=== PATIENT | male | born 1945 ===

== ENCOUNTER → 2020-08-05 13:18 | Outpatient (BNVA) | payer MEDICARE, MEDICAID, OTHER, SELFPAY | PROVIDERS: Visit Provider Internal Medicine Cardiovascular Disease | DX: I49.3 Ventricular premature depolarization (principal) | CPT/HCPCS: 99212 ==

== ENCOUNTER → 2021-02-10 08:33 | Outpatient (BNVA) | payer MEDICARE, MEDICAID, SELFPAY | PROVIDERS: Visit Provider Internal Medicine Cardiovascular Disease | DX: I49.3 Ventricular premature depolarization (principal) | CPT/HCPCS: 93005; 99212 ==

== ENCOUNTER → 2021-03-19 07:48 | Outpatient (REF) | payer MEDICARE, MEDICAID, SELFPAY ==
--- NOTE | 2021-03-19 07:54 | CA_ITS ---
Transthoracic Echocardiogram Patient (Last, First, Middle): Kt Mendiola, Gender: Male Date of : 1945 Age: 75 Procedure Date: 03/19/2021 Procedure Type: Transthoracic Echocardiogram Location: OP Height: 165.1 cm Weight: 80.74 kg BSA: 1.88 m2 Heart Rate: bpm BP: 120 / 80 mmHg Personnel Director: Referring MD: Christopher Choi MD Symptoms: I42.9 - Cardiomyopathy, unspecified Study Quality: Fair, on Apical views ECG Rhythm: Sinus with extra beats Conclusions: - Normal left ventricular size and systolic function. The visually estimated ejection fraction is between 55-60%. - Normal right ventricular cavity size and systolic function. - Both atria are normal in size. - There is moderate dilatation of the ascending aorta and mild dilatation of the aortic arch. Findings Left Ventricle Normal left ventricular size and systolic function. The visually estimated ejection fraction is between 55-60%. There is no evidence of regional wall motion abnormalities. Diastolic function is normal for age. There is borderline increased left ventricular wall thickness. Right Ventricle Normal right ventricular cavity size and systolic function. Atria Both atria are normal in size. Aortic Valve There is a normal trileaflet aortic valve. There is mild calcification of the aortic valve. There is no aortic valve stenosis. There is no aortic valve regurgitation. Mitral Valve Normal mitral valve structure and function. There is no mitral valve regurgitation. There is no mitral valve stenosis. Pulmonic Valve The pulmonic valve is likely normal. Tricuspid Valve Normal tricuspid valve structure and function. There is trace tricuspid valve regurgitation. Tricuspid regurgitation envelope is inadequate for calculation of right ventricular systolic pressure. Normal right atrial pressure. Great Vessels There is moderate dilatation of the ascending aorta and mild dilatation of the aortic arch. The visualized portions of the pulmonary artery and branches are normal. Venous The inferior vena cava is normal in size and collapses greater than 50% with inspiration. Pericardium/Pleural There is no evidence of pericardial effusion. Prior Study Comparison Changes noted compared to prior study dated: 04/11/2020. Moderately dilated aortic root and mildly dilated ascending aorta. Measurements 2D Linear Measurements IVSd: 1.01 0.6-0.9/0.6-1.0 cm LVIDd: 5.48 3.9-5.3/4.2-5.9 cm LVIDd Index: 2.91 2.4-3.2/2.2-3.1 cm/m2 LVIDs: 3.82 2.0-3.6 cm LVPWd: 1.09 0.7-1.1 cm Ao Root: 3.40 2.1-3.5 cm LA Diam: 3.10 2.7-3.8/3.0-4.0 cm LAIDs Index: 1.65 1.5-2.3 cm/m2 LV Mass: 281.79 67-162/88-224 g LV Mass Index: 149.89 43-95/49-115 g/m2 LVOT Diam: 2.60 3.0+(-)1.3 cm 2D Systolic Function EF 4C: 59.30 >55% EF 2C: 63.60 >55% EF BiP: 60.20 >55% Mitral Valve MV Pk E: 0.76 MV PK A: 0.74 MV Decel Time: 211.00 E/A: 1.00 E'Lateral: 7.62 E'Medial: 8.38 E/E' Med: 9.10 E/E' Lat: 10.00 PHT: 62.00 MVA PHT: 3.55 Decel [place]: 3.61 Aortic Valve AoV Pk Bobo: 1.72 AoV Mn Bobo: 1.14 AoV VTI: 0.38 AoV Pk Grad: 12.00 Aov Mn Grad: 6.00 HAYES Cont.VTI: 3.11 LVOT LVOT Pk Bobo: 0.97 LVOT Mn Bobo: 0.65 LVOT VTI: 0.23 LVOT Pk Grad: 4.00 LVOT Mn Grad: 2.00 LVOT Diam: 2.60 LVOT Area: 5.31 Diastolic Function MV Pk E: 0.76 MV Pk A: 0.74 E/A: 1.00 E'Medial: 8.38 E/E' Med: 9.10 E' Laterial: 7.62 E/E' Lat: 10.00 Right Ventricle TAPSE (mm): 30.00 TVS' Bobo: 14.00 Great Vessels Aorta Ao Root-2D: 3.40 2.0-3.7 cm Ao Asc: 4.30 2.1-3.4 cm Ao Arch: 3.60 Updated in Other Vendor System with Status of Final Christopher Choi MD electronically signed on 03/20/2021 4:38:51 PM with status of Final
== END ==
LOC: HO.CARD 07:48
PROVIDERS: Visit Provider Internal Medicine Cardiovascular Disease
DX: I42.9 Cardiomyopathy, unspecified (principal); I49.3 Ventricular premature depolarization
CPT/HCPCS: 93306

== ENCOUNTER 2021-05-30 07:47 | Outpatient (REF) | payer MEDICARE, OTHER, SELFPAY ==
[2021-05-30 08:06] LABS: MANUAL DIFF FLAG NO
[2021-05-30 09:01] LABS: Basophils Absolute Auto 0.1 X10*3/uL (0.0-0.2); Basophils Percent Auto 1.7 % (0-2); Eosinophils Absolute Auto 1.4 X10*3/uL (0.0-0.4); Eosinophils Percent Auto 19.6 % (0-4); Hematocrit 40.3 % (42-52); Hemoglobin 13.1 g/dl (14.0-18.0); Imm Gran Abs Auto 0.02 X10*3/uL (0.00-0.03); Imm Gran Pct Auto 0.3 % (0.0-0.4); Lymphocytes Absolute Auto 2.5 X10*3/uL (1.2-4.9); Lymphocytes Percent Auto 34.5 % (20-40); Mean Corpuscular HGB Conc 32.5 g/dl (31.0-36.0); Mean Corpuscular Hemoglobin 29.1 pg (27.0-33.0); Mean Corpuscular Volume 89.6 fL (80-98); Mean Platelet Volume 12.5 fL (9.4-12.4); Monocytes Absolute Auto 0.5 X10*3/uL (0.1-1.2); Monocytes Percent Auto 6.3 % (2-11); Neutrophils Absolute Auto 2.7 X10*3/uL (2.0-8.3); Neutrophils Percent Auto 37.6 % (45-73); Platelet Count 207 X10*3/uL (160-400); Red Cell Distribution Width 13.2 % (11.0-16.0); White Blood Count 7.1 X10*3/uL (4.8-10.8)
[2021-05-30 09:37] LABS: Alanine Aminotransferase 20 U/L (0-40); Albumin Level 4.1 g/dL (3.5-5.0); Alkaline Phosphatase 84 U/L (39-117); Anion Gap 12 (12-20); Aspartate Amino Transferase 18 U/L (5-37); Bilirubin Total 0.6 mg/dL (0.0-1.0); Blood Urea Nitrogen 13 mg/dL (9-16); Calcium 9.3 mg/dL (8.4-10.2); Carbon Dioxide 25 mmol/L (22-29); Chloride 106 mmol/L (96-108); Cholesterol 111 mg/dL; Estimated Glomerular Filt Rate > 60; Glucose Fasting 136 mg/dL (60-99); HDL Cholesterol 38 mg/dL; LDL Cholesterol Calculated 58 mg/dl; Potassium 4.5 mmol/L (3.3-5.1); Sodium 138 mmol/L (135-145); Total Protein 6.9 g/dL (6.5-8.0); Triglycerides 75 mg/dL
[2021-05-30 09:46] LABS: Estimated Average Glucose 157 mg/dL; Hemoglobin A1c % 7.1 %
[2021-05-30 10:27] LABS: Creatinine Urine 150.09 mg/dL; Microalbum/Creatinine Ratio Ur 17.3 ug/mg cr
== END 2021-05-30 07:48 | disposition home or self-care (01) ==
LOC: HO.LAB 07:47
PROVIDERS: Absent Provider Internal Medicine Nephrology; PCP Nurse Practitioner Family; Visit Provider Nurse Practitioner Family
DX: I12.9 Hypertensive chronic kidney disease with stage 1 through stage 4 chronic kidney disease, or unspecified chronic kidney disease (principal); N18.31 Chronic kidney disease, stage 3a; E11.22 Type 2 diabetes mellitus with diabetic chronic kidney disease; E11.21 Type 2 diabetes mellitus with diabetic nephropathy; E55.9 Vitamin D deficiency, unspecified; E78.2 Mixed hyperlipidemia
CPT/HCPCS: 36415; 80053; 80061; 82043; 83036; 85025

== ENCOUNTER → 2021-07-23 11:53 | Outpatient (BNVA) | payer MEDICARE, OTHER, SELFPAY | PROVIDERS: PCP Nurse Practitioner Family; Referring Provider Nurse Practitioner Family; Visit Provider Internal Medicine Cardiovascular Disease | DX: I49.3 Ventricular premature depolarization (principal) | CPT/HCPCS: 99212 ==

== ENCOUNTER 2022-01-17 07:31 | Outpatient (REF) | payer MEDICARE, OTHER, SELFPAY ==
[2022-01-17 07:41] LABS: MANUAL DIFF FLAG NO
[2022-01-17 07:58] LABS: Basophils Absolute Auto 0.1 X10*3/uL (0.0-0.2); Basophils Percent Auto 1.5 % (0-2); Eosinophils Absolute Auto 1.2 X10*3/uL (0.0-0.4); Eosinophils Percent Auto 16.1 % (0-4); Hematocrit 41.5 % (42.0-52.0); Hemoglobin 13.5 g/dl (14.0-18.0); Imm Gran Abs Auto 0.02 X10*3/uL (0.00-0.03); Imm Gran Pct Auto 0.3 % (0.0-0.4); Lymphocytes Absolute Auto 2.9 X10*3/uL (1.2-4.9); Lymphocytes Percent Auto 38.9 % (20-40); Mean Corpuscular HGB Conc 32.5 g/dl (31.0-36.0); Mean Corpuscular Hemoglobin 29.2 pg (27.0-33.0); Mean Corpuscular Volume 89.6 fL (80.0-98.0); Mean Platelet Volume 11.5 fL (9.4-12.4); Monocytes Absolute Auto 0.5 X10*3/uL (0.1-1.2); Monocytes Percent Auto 6.6 % (2-11); Neutrophils Absolute Auto 2.8 x10*3/uL (2.0-8.3); Neutrophils Percent Auto 36.6 % (45-73); Platelet Count 239 X10*3/uL (160-400); Red Blood Count 4.63 X10*6/uL (4.60-5.80); Red Cell Distribution Width 12.8 % (11.0-16.0); White Blood Count 7.5 X10*3/uL (4.8-10.8)
[2022-01-17 08:25] LABS: Alanine Aminotransferase 15 U/L (0-40); Albumin Level 4.2 g/dL (3.5-5.0); Alkaline Phosphatase 96 U/L (39-117); Anion Gap 13 (12-20); Aspartate Amino Transferase 18 U/L (5-37); Bilirubin Direct 0.2 mg/dL (0.0-0.5); Bilirubin Total 0.5 mg/dL (0.0-1.0); Blood Urea Nitrogen 17 mg/dL (9-16); Calcium 9.9 mg/dL (8.4-10.2); Carbon Dioxide 23 mmol/L (22-29); Chloride 106 mmol/L (96-108); Cholesterol 110 mg/dL; Estimated Glomerular Filt Rate 54; Glucose Random 156 mg/dL (60-115); HDL Cholesterol 35 mg/dL; LDL Cholesterol Calculated 59 mg/dl; Potassium 4.1 mmol/L (3.3-5.1); Sodium 138 mmol/L (135-145); Total Protein 7.6 g/dL (6.5-8.0); Triglycerides 82 mg/dL
[2022-01-17 08:35] LABS: Microalbum/Creatinine Ratio Ur 26.5 ug/mg cr
== END 2022-01-17 07:32 | disposition home or self-care (01) ==
LOC: HO.LAB 07:31
PROVIDERS: PCP Internal Medicine Geriatric Medicine; Visit Provider Internal Medicine Geriatric Medicine
DX: I12.9 Hypertensive chronic kidney disease with stage 1 through stage 4 chronic kidney disease, or unspecified chronic kidney disease (principal); N18.9 Chronic kidney disease, unspecified; E11.22 Type 2 diabetes mellitus with diabetic chronic kidney disease; Z79.899 Other long term (current) drug therapy
CPT/HCPCS: 36415; 80048; 80061; 80076; 82043; 85025

== ENCOUNTER 2022-07-15 07:14 | Outpatient (REF) | payer MEDICARE, OTHER, SELFPAY ==
--- NOTE | ~2022-07-15 | XR_ITS ---
EXAMINATION: XR KNEE AP STANDING CLINICAL INFORMATION: Pain in right knee COMPARISON: None TECHNIQUE: AP bilateral standing view of the knees was obtained. FINDINGS: There is moderate to severe narrowing in the lateral right knee joint space compartment. No osteochondral lesions on the right. There is severe narrowing in the medial joint space compartment of the left knee. Degenerative spurring changes noted in the left femoral condyles and in the left tibial plateau. No bony fractures or erosive abnormality appreciated. XR/XR knee standing BI IMPRESSION: 1. Degenerative changes as described. 2. No bony fracture or erosive process seen.
--- NOTE | ~2022-07-15 | XR_ITS ---
EXAMINATION: XR KNEE, RIGHT CLINICAL INFORMATION: Right COMPARISON: None TECHNIQUE: Two views of the right knee. FINDINGS: No significant joint effusion. Minimal spurring of the medial patella. The patellofemoral joint space is maintained. No distinct fracture or dislocation. XR/XR knee RT 2V IMPRESSION: No acute process. Minimal degenerative changes.
--- NOTE | ~2022-07-15 | XR_ITS ---
EXAMINATION: XR KNEE, LEFT CLINICAL INFORMATION: Left knee pain COMPARISON: None TECHNIQUE: Views of the left knee. FINDINGS: No bony fracture seen. Spurring of the lateral patella and femoral condyles noted. Severe medial joint space narrowing observed. No significant joint effusion. XR/XR knee LT 2V IMPRESSION: Degenerative changes. No fracture or dislocation observed.
== END 2022-07-15 07:15 | disposition home or self-care (01) ==
LOC: HO.HOSX 07:14
PROVIDERS: Visit Provider Physician Assistant
DX: M17.0 Bilateral primary osteoarthritis of knee (principal)
CPT/HCPCS: 73560; 73565; 99202; 99212; J1020

== ENCOUNTER → 2022-07-29 12:01 | Outpatient (BNVA) | payer MEDICARE, MEDICAID, SELFPAY | PROVIDERS: PCP Internal Medicine Geriatric Medicine; Referring Provider Internal Medicine Geriatric Medicine; Visit Provider Internal Medicine Cardiovascular Disease | DX: I49.3 Ventricular premature depolarization (principal) | CPT/HCPCS: 93005; 99212 ==

== ENCOUNTER 2022-10-12 07:18 | Outpatient (REF) | payer MEDICARE, MEDICAID, SELFPAY ==
[2022-10-12 07:35] LABS: MANUAL DIFF FLAG NO
[2022-10-12 07:47] LABS: Basophils Absolute Auto 0.2 X10*3/uL (0.0-0.2); Basophils Percent Auto 1.6 % (0-2); Eosinophils Absolute Auto 1.7 X10*3/uL (0.0-0.4); Eosinophils Percent Auto 17.8 % (0-4); Hematocrit 46.7 % (42.0-52.0); Hemoglobin 15.2 g/dl (14.0-18.0); Imm Gran Abs Auto 0.03 X10*3/uL (0.00-0.03); Imm Gran Pct Auto 0.3 % (0.0-0.4); Lymphocytes Percent Auto 32.6 % (20-40); Mean Corpuscular HGB Conc 32.5 g/dl (31.0-36.0); Mean Corpuscular Hemoglobin 28.4 pg (27.0-33.0); Mean Corpuscular Volume 87.1 fL (80.0-98.0); Mean Platelet Volume 11.3 fL (9.4-12.4); Monocytes Absolute Auto 0.5 X10*3/uL (0.1-1.2); Monocytes Percent Auto 5.7 % (2-11); Neutrophils Absolute Auto 3.9 x10*3/uL (2.0-8.3); Platelet Count 228 X10*3/uL (160-400); Red Blood Count 5.36 X10*6/uL (4.60-5.80); Red Cell Distribution Width 13.4 % (11.0-16.0); White Blood Count 9.3 X10*3/uL (4.8-10.8)
[2022-10-12 07:56] LABS: Estimated Average Glucose 160 mg/dL; Hemoglobin A1c % 7.2 %
[2022-10-12 08:14] LABS: Creatinine Urine 72.32 mg/dL; Total Protein Urine Random < 7 mg/dL (<12)
[2022-10-12 08:20] LABS: Appearance Urine Hazy; Color Urine Yellow; Glucose Urine UA >=1000 mg/dL (Negative); Leukocyte Esterase Urine Negative (Negative); Nitrite Urine Negative (Negative); PH 5.5 (5.0-9.0); UMIC TRIGGER UA YES; Urine Blood Negative (Negative); Urine Ketones Negative (Negative); Urine Protein Negative (Neg-Trace)
[2022-10-12 08:27] LABS: Bacteria Urine None Seen (None Seen); Hyaline Casts Urine 0-2 /LPF (0-2); RBC Urine 0-2 /HPF (0-2); Squamous Epithelial Cell Urine 0-2 /HPF (0-2); WBC Urine 0-5 /HPF (0-5)
[2022-10-12 08:34] LABS: Anion Gap 13 (12-20); Blood Urea Nitrogen 21 mg/dL (9-16); Calcium 9.2 mg/dL (8.4-10.2); Carbon Dioxide 26 mmol/L (22-29); Chloride 103 mmol/L (96-108); Estimated Glomerular Filt Rate 59; Iron 122 mcg/dL (45-160); Percent Iron Saturation 45 % (15-50); Potassium 4.4 mmol/L (3.3-5.1); Sodium 138 mmol/L (135-145); Total Iron Binding Capacity 274 mcg/dL (228-428); Unsaturated Iron Binding 152 ug/dL
[2022-10-12 08:42] LABS: Vitamin D 25-OH Total 46.4 ng/mL (>30)
[2022-10-13 13:58] LABS: Calcium (PTHI) 9.7 mg/dL (8.6-10.3); PTHI 83 pg/mL (16-77)
== END 2022-10-12 07:19 | disposition home or self-care (01) ==
LOC: HO.LAB 07:18
PROVIDERS: PCP Internal Medicine Geriatric Medicine; Visit Provider Physician Assistant
DX: N18.31 Chronic kidney disease, stage 3a (principal); E55.9 Vitamin D deficiency, unspecified; E11.9 Type 2 diabetes mellitus without complications; E63.1 Imbalance of constituents of food intake
CPT/HCPCS: 36415; 80051; 81001; 81003; 82306; 82310; 82565; 83036; 83540; 83970; 84156; 84520; 85025

== ENCOUNTER → 2022-12-16 12:40 | Outpatient (BNVA) | payer MEDICARE, MEDICAID, SELFPAY | PROVIDERS: PCP Internal Medicine Geriatric Medicine; Visit Provider Physician Assistant | DX: M17.0 Bilateral primary osteoarthritis of knee (principal) | CPT/HCPCS: 20610; 99212; J1020 ==

== ENCOUNTER 2023-04-05 08:31 | Outpatient (REF) | payer MEDICARE, MEDICAID, SELFPAY ==
[2023-04-05 12:45] LABS: Estimated Average Glucose 148 mg/dL; Hemoglobin A1c % 6.8 % (<6.0)
== END 2023-04-05 08:32 | disposition home or self-care (01) ==
LOC: HO.HHCL 08:31
PROVIDERS: Visit Provider Internal Medicine Geriatric Medicine
DX: E11.21 Type 2 diabetes mellitus with diabetic nephropathy (principal)
CPT/HCPCS: 36415; 83036

== ENCOUNTER 2023-05-07 08:09 | Outpatient (REF) | payer MEDICARE, MEDICAID, SELFPAY ==
[2023-05-07 11:30] LABS: Appearance Urine Clear; Color Urine Yellow; Glucose Urine UA >=1000 mg/dL (Negative); Leukocyte Esterase Urine Negative (Negative); Nitrite Urine Negative (Negative); Specific Gravity - Urine 1.025 (1.005-1.025); UMIC TRIGGER UA YES; Urine Blood Negative (Negative); Urine Ketones Negative (Negative); Urine Protein Negative (Neg-Trace)
[2023-05-07 11:42] LABS: Basophils Absolute Auto 0.1 X10*3/uL (0.0-0.2); Basophils Percent Auto 0.7 % (0-2); Eosinophils Absolute Auto 1.6 X10*3/uL (0.0-0.4); Eosinophils Percent Auto 22.3 % (0-4); Hematocrit 47.6 % (42.0-52.0); Hemoglobin 15.4 g/dl (14.0-18.0); Imm Gran Abs Auto 0.01 X10*3/uL (0.00-0.03); Imm Gran Pct Auto 0.1 % (0.0-0.4); Lymphocytes Absolute Auto 1.3 X10*3/uL (1.2-4.9); Lymphocytes Percent Auto 18.1 % (20-40); MANUAL DIFF FLAG SCAN; Mean Corpuscular HGB Conc 32.4 g/dl (31.0-36.0); Mean Corpuscular Hemoglobin 29.2 pg (27.0-33.0); Mean Corpuscular Volume 90.3 fL (80.0-98.0); Mean Platelet Volume 11.7 fL (9.4-12.4); Monocytes Absolute Auto 0.4 X10*3/uL (0.1-1.2); Monocytes Percent Auto 5.4 % (2-11); Neutrophils Absolute Auto 3.9 x10*3/uL (2.0-8.3); Neutrophils Percent Auto 53.4 % (45-73); Platelet Count 235 X10*3/uL (160-400); Red Blood Count 5.27 X10*6/uL (4.60-5.80); Red Cell Distribution Width 12.9 % (11.0-16.0); SCAN SMEAR FLAG 1; White Blood Count 7.3 X10*3/uL (4.8-10.8)
[2023-05-07 11:43] LABS: Bacteria Urine None Seen (None Seen); Hyaline Casts Urine 0-2 /LPF (0-2); RBC Urine 0-2 /HPF (0-2); Squamous Epithelial Cell Urine 0-2 /HPF (0-2); WBC Urine 0-5 /HPF (0-5)
[2023-05-07 11:45] LABS: Estimated Average Glucose 157 mg/dL; Hemoglobin A1c % 7.1 % (<6.0)
[2023-05-07 12:07] LABS: Creatinine Urine 34.76 mg/dL; Microalbum/Creatinine Ratio Ur 17.2 ug/mg cr (<30)
[2023-05-07 12:21] LABS: Anion Gap 10 (12-20); Blood Urea Nitrogen 17 mg/dL (9-16); Calcium 9.2 mg/dL (8.4-10.2); Carbon Dioxide 24 mmol/L (22-29); Chloride 107 mmol/L (96-108); Cholesterol 108 mg/dL (<200); Estimated Glomerular Filt Rate > 60; HDL Cholesterol 38 mg/dL (>40); Iron 76 mcg/dL (45-160); LDL Cholesterol Calculated 57 mg/dL (<100); Percent Iron Saturation 29 % (15-50); Potassium 4.1 mmol/L (3.3-5.1); Sodium 137 mmol/L (135-145); Total Iron Binding Capacity 259 mcg/dL (228-428); Triglycerides 66 mg/dL (<150); Unsaturated Iron Binding 183 ug/dL; Uric Acid 5.2 mg/dL (3.4-7.0); Vitamin D 25-OH Total 49.7 ng/mL (>30)
[2023-05-07 12:58] LABS: SLIDE REVIEW VERIFIED
== END 2023-05-07 08:10 | disposition home or self-care (01) ==
LOC: HO.HHCL 08:09
PROVIDERS: Visit Provider Physician Assistant
DX: E11.22 Type 2 diabetes mellitus with diabetic chronic kidney disease (principal); I11.0 Hypertensive heart disease with heart failure; N18.31 Chronic kidney disease, stage 3a
CPT/HCPCS: 36415; 80051; 80061; 81001; 82043; 82306; 82310; 82565; 82570; 83036; 83540; 84520; 84550; 85025

== ENCOUNTER 2023-05-17 08:11 | Outpatient (REF) | payer MEDICARE, MEDICAID, SELFPAY ==
[2023-05-17 12:00] LABS: Estimated Average Glucose 154 mg/dL
[2023-05-17 12:46] LABS: Alanine Aminotransferase 16 U/L (0-40); Albumin Level 4.2 g/dL (3.5-5.0); Alkaline Phosphatase 85 U/L (39-117); Anion Gap 13 (12-20); Aspartate Amino Transferase 22 U/L (5-37); Bilirubin Total 0.5 mg/dL (0.0-1.0); Blood Urea Nitrogen 20 mg/dL (9-16); Calcium 9.5 mg/dL (8.4-10.2); Carbon Dioxide 24 mmol/L (22-29); Chloride 103 mmol/L (96-108); Cholesterol 117 mg/dL (<200); Estimated Glomerular Filt Rate > 60; Glucose Random 127 mg/dL (60-115); HDL Cholesterol 40 mg/dL (>40); LDL Cholesterol Calculated 63 mg/dL (<100); Sodium 136 mmol/L (135-145); Triglycerides 71 mg/dL (<150)
== END 2023-05-17 08:12 | disposition home or self-care (01) ==
LOC: HO.HHCL 08:11
PROVIDERS: Visit Provider Internal Medicine Geriatric Medicine
DX: I10 Essential (primary) hypertension (principal); E11.21 Type 2 diabetes mellitus with diabetic nephropathy; Z79.899 Other long term (current) drug therapy
CPT/HCPCS: 36415; 80053; 80061; 83036

== ENCOUNTER 2023-08-02 12:07 | Outpatient (AMB) | payer MEDICARE, MEDICAID, SELFPAY ==
[2023-08-02 12:36] VITALS: BP 110/60; PULSE 89; BMI 27.1
--- NOTE | 2023-08-02 12:36 | A.OFFVIS_ITS ---
Intake Vital Signs 08/02/23 12:36 Height 5 ft 5 in Weight 163 lb 2.273 oz BMI 27.1 BP 110/60 Blood Pressure Location Lt brachial Position Sitting Pulse 89 Intake Visit Reasons: 1 yr f/up Intake Note: 1 yr f/up pt its feeling fine Photographer Scientific Required: Yes Photographer Scientific Name: [id number] Accompanied by: Self / Same As Patient Allergies ibuprofen [IBUPROFEN] Allergy (Severe, Verified 12/16/22 12:49) SWELLING Ibuprofen Allergy (Unknown, Uncoded 12/16/22 12:49) unknown Medication List - Last Reconciled 08/02/23 by Christopher Choi MD aspirin (Adult Low Dose Aspirin) 81 mg PO DAILY atorvastatin 80 mg PO DAILY cholecalciferol (vitamin D3) 50 mcg PO DAILY empagliflozin (Jardiance) 10 mg PO DAILY lisinopril-hydrochlorothiazide 20-12.5 mg 1 tab PO DAILY metformin ER 500 mg PO DAILY tramadol 50 mg PO TID PRN HPI HPI Comments History of Present Illness Details Pleasant 77-year-old gentleman who was referred for bradycardia. he was noticed to be bradycardic during a visit with his primary care physician.. He has no palpitations or symptoms. In particular no dizziness or syncope. He denies chest discomfort or shortness of breath. EKG in our office before showed sinus rhythm, normal axis, premature ventricular complexes, QTC of 443 milliseconds. He was sent for a Holter monitor which showed more than 26,000 PVCs in 24 hours. He had echocardiography which showed no significant issues and normal biventricular function. I sent him for exercise stress test to see the effect of exercise on his PVCs but he could not exercise due to joint issues. He had a Lexiscan instead which was normal. Echocardiography recently which is showing normal biventricular function. He has moderately dilated aorta. He is a former smoker and quit many years ago. Clinically stable and is denying any symptoms at this stage. In particular no shortness of breath, dizziness, syncope or chest discomfort. 08/02/2023: He returns for follow-up. His EKG interestingly showing nonsustained ventricular tachycardia with 5 beats. He also had another run on the start of the ECG tracing. He is denying any symptoms. Particular no chest pain or shortness of breath. No palpitations. No symptoms/signs of heart failure. [facility] Medical History Hypertension Surgical History History of right hip replacement History of left knee surgery Family History Mother No problems noted. Father No problems noted. Social History Alcohol intake: current Alcohol intake frequency: holidays/special occasions only Patient Tobacco Use Status: Former Tobacco user Quit Date: 1983 Years Smoked: 10 +/- Current occupational status: retired Review of Systems Const Reports chills, Reports fatigue, Reports fever(s), Reports frequent falls, Reports weakness, Reports weight gain and Reports weight loss ENT Reports dizziness Card Reports chest pain, Reports leg edema, Reports lightheadedness, Reports palpitations, Reports dyspnea and Reports dyspnea on exertion Resp Reports cough, Reports dyspnea and Reports dyspnea on exertion GI Reports hematochezia Musc Reports abnormal gait, Reports muscle weakness, Reports numbness, Reports radiating pain into limb and Reports tingling Neuro Reports abnormal gait, Reports dizziness, Reports frequent falls, Reports numbness, Reports tingling and Reports weakness Endo Reports fatigue and Reports palpitations Physical Exam Vital Signs: Last Vital Signs Pulse 89 08/02/23 12:36 BP 110/60 08/02/23 12:36 BMI result Body Mass Index 27.1 GENERAL APPEARANCE: in no acute distress, well developed, well nourished. NECK/THYROID: no carotid bruit, no jugular venous distention. SKIN: no suspicious lesions, warm and dry. HEART: no murmurs,regular rhythm, S1, S2 normal. LUNGS: clear to auscultation bilaterally. ABDOMEN: normal, bowel sounds present, soft, nontender, nondistended. EXTREMITIES: no clubbing, cyanosis, or edema. PERIPHERAL PULSES: equal. NEUROLOGIC: nonfocal, alert and oriented. PSYCH: mood/affect full range. Office Procedures EKG Details: Sinus rhythm 89 beats per minute, cannot rule out inferior infarct, nonsustained VT 5 beats, frequent episodes, QTC 476. [id number], Complete Assessment & Plan Assessment & Plan (1) NSVT (nonsustained ventricular tachycardia): Code(s): I47.29 - Other ventricular tachycardia Plan [age] year gentleman with background of asymptomatic premature ventricular complexes and normal LV function now coming for follow-up and has asymptomatic nonsustained VT. His denying any palpitations, chest pain or syncope. Starting him on amiodarone. Will check echocardiogram to rule out any cardiomyopathy and do a Holter monitor to see how much PVC burden is there. Will see him back in few months. Thank you for allowing me to participate in the care of your patient. Please feel free to contact me if you have any questions. Orders: Orders CA echo transthoracic complete Today I47.29 - Other ventricular tachycardia ECG holter monitor 24 hour Today I47.29 - Other ventricular tachycardia Medications: New amiodarone 200 mg orally BID x 14 days then 1 tablet daily; 100 tabs 3RF I47.29 - Other ventricular tachycardia Coding Level of Care Code Est Pt Level 4 (82042) Diagnoses NSVT (nonsustained ventricular tachycardia) I47.29 CPT Codes EKG - CPT: 96602-[id number], Complete ([id number])
== END 2023-08-02 13:09 | disposition home or self-care (01) ==
PROVIDERS: Visit Provider Internal Medicine Cardiovascular Disease
DX: I47.29 Other ventricular tachycardia (principal)
CPT/HCPCS: 93010; 99214

== ENCOUNTER → 2023-08-02 12:07 | Outpatient (BNVA) | payer MEDICARE, MEDICAID, SELFPAY | PROVIDERS: Visit Provider Internal Medicine Cardiovascular Disease | DX: I47.29 Other ventricular tachycardia (principal) | CPT/HCPCS: 93005; 99212 ==

== ENCOUNTER → 2023-08-27 10:01 | Outpatient (REF) | payer MEDICARE, OTHER, SELFPAY ==
--- NOTE | 2023-08-27 10:05 | CA_ITS ---
Transthoracic Echocardiogram Patient (Last, First, Middle): Kt Mendiola, Gender: Male Date of : 1945 Age: 77 Procedure Date: 08/27/2023 Procedure Type: Transthoracic Echocardiogram Location: OP Height: 165.1 cm Weight: 75.75 kg BSA: 1.83 m2 Heart Rate: bpm BP: 130 / 68 mmHg Hot Car Operator: TO Referring MD: Christopher Choi MD Cma Or Lpn: Christopher Choi MD Symptoms: I47.29 - Other ventricular tachycardia Study Quality: Fair/Contrast ECG Rhythm: Sinus Conclusions: - 1. Normal LV ejection fraction of 65-70% with grade 1 diastolic dysfunction 2. Mildly dilated left atrium 3. Normal cardiac valvular Doppler 4. Mildly to moderately dilated ascending aorta at 4.3 cm 5. No gross pericardial effusion Findings Procedure Information Contrast agent, definity, is being given per protocol without apparent complications. Left Ventricle Normal left ventricular size, thickness, and systolic function. The visually estimated ejection fraction is between 65-70%. Spectral Doppler is indicative of an impaired relaxation filling pattern. E/E prime ratio is <8, consistent with normal filling pressures. Evidence suggests grade I (mild) diastolic dysfunction. Right Ventricle Normal right ventricular cavity size and systolic function. Atria The left atrium is mildly dilated. Interatrial shunt cannot be excluded. The right atrium is normal in size. Aortic Valve The aortic valve structure and function is likely normal. There is no aortic valve stenosis. There is no aortic valve regurgitation. Mitral Valve Likely normal mitral valve structure and function. There is trace mitral valve regurgitation. There is no mitral valve stenosis. Pulmonic Valve The pulmonic valve is likely normal. Tricuspid Valve Tricuspid regurgitation envelope is inadequate for calculation of right ventricular systolic pressure. Normal right atrial pressure. Great Vessels The pulmonary artery was not well visualized. There is mild dilatation of the ascending aorta measuring 4.30 cm. Venous The inferior vena cava is normal in size and collapses greater than 50% with inspiration. Pericardium/Pleural There is no evidence of pericardial effusion. Prior Study Comparison No significant change compared to prior study dated: 03/19/2021. Measurements 2D Linear Measurements IVSd: 1.07 0.6-0.9/0.6-1.0 cm LVIDd: 5.11 3.9-5.3/4.2-5.9 cm LVIDd Index: 2.79 2.4-3.2/2.2-3.1 cm/m2 LVIDs: 3.20 2.0-3.6 cm LVPWd: 0.97 0.7-1.1 cm LA Diam: 3.20 2.7-3.8/3.0-4.0 cm LAIDs Index: 1.75 1.5-2.3 cm/m2 LV Mass: 242.02 67-162/88-224 g LV Mass Index: 132.25 43-95/49-115 g/m2 LVOT Diam: 2.10 3.0+(-)1.3 cm 2D Systolic Function EF 4C: 65.20 >55% EF 2C: 70.30 >55% EF BiP: 68.10 >55% Mitral Valve MV Pk E: 0.69 MV PK A: 0.78 MV Decel Time: 269.00 E/A: 0.90 E'Lateral: 7.18 E'Medial: 7.51 E/E' Med: 9.20 E/E' Lat: 9.60 PHT: 79.00 MVA PHT: 2.78 Decel [place]: 2.56 Aortic Valve AoV Pk Bobo: 1.95 AoV Mn Bobo: 1.37 AoV VTI: 0.41 AoV Pk Grad: 15.00 Aov Mn Grad: 8.00 HYAES Cont.VTI: 1.95 LVOT LVOT Pk Bobo: 1.04 LVOT Mn Bobo: 0.65 LVOT VTI: 0.23 LVOT Pk Grad: 4.00 LVOT Mn Grad: 2.00 LVOT Diam: 2.10 LVOT Area: 3.46 Diastolic Function MV Pk E: 0.69 MV Pk A: 0.78 E/A: 0.90 E'Medial: 7.51 E/E' Med: 9.20 E' Laterial: 7.18 E/E' Lat: 9.60 Right Ventricle TAPSE (mm): 26.70 TVS' Bobo: 12.30 Tricuspid Valve RA Press: 3.00 Great Vessels Aorta Sinus of Valsalva: 3.91 2.0-3.[address] [place]: 2.63 1.7-3.4 cm Ao Asc: 4.30 2.1-3.4 cm Ao Arch: 3.70 Updated in Other Vendor System with Status of Final Beny Carlson MD electronically signed on 08/27/2023 3:49:10 PM with status of Final
--- NOTE | 2023-08-27 10:05 | HM_ITS ---
Conclusion: 1. Patient was monitored for total period of 1 day 2. Baseline was normal sinus rhythm with average heart of 69 beats per minute 3. No significant pauses noted 4. Frequent PACs noted with total burden of 1.7% 5. No patient reported events MTDD
== END ==
LOC: HO.CARD 10:01
PROVIDERS: PCP Internal Medicine Geriatric Medicine; Visit Provider Internal Medicine Cardiovascular Disease
DX: I47.29 Other ventricular tachycardia (principal); I49.1 Atrial premature depolarization
CPT/HCPCS: 93225; 93306; Q9957

== ENCOUNTER → 2023-08-27 10:05 | Outpatient (BNV) | payer MEDICARE, MEDICAID, SELFPAY | PROVIDERS: PCP Internal Medicine Geriatric Medicine; Visit Provider Internal Medicine Cardiovascular Disease | DX: I49.1 Atrial premature depolarization (principal) | CPT/HCPCS: 93227; 93306 ==

== ENCOUNTER 2023-09-22 08:10 | Outpatient (REF) | payer MEDICARE, MEDICAID, SELFPAY ==
[2023-09-22 12:33] LABS: Creatinine Urine 92.03 mg/dL; Microalbum/Creatinine Ratio Ur 31.5 ug/mg cr (<30)
[2023-09-22 12:45] LABS: Alanine Aminotransferase 28 U/L (0-40); Albumin Level 4.2 g/dL (3.5-5.0); Alkaline Phosphatase 93 U/L (39-117); Anion Gap 12 (12-20); Aspartate Amino Transferase 26 U/L (5-37); Bilirubin Total 0.4 mg/dL (0.0-1.0); Blood Urea Nitrogen 16 mg/dL (9-16); Calcium 9.9 mg/dL (8.4-10.2); Carbon Dioxide 28 mmol/L (22-29); Chloride 105 mmol/L (96-108); Estimated Glomerular Filt Rate 55; Glucose Random 143 mg/dL (60-115); Potassium 4.6 mmol/L (3.3-5.1); Sodium 140 mmol/L (135-145); Total Protein 8.3 g/dL (6.5-8.0)
== END 2023-09-22 08:11 | disposition home or self-care (01) ==
LOC: HO.HHCL 08:10
PROVIDERS: Visit Provider Internal Medicine Geriatric Medicine
DX: E11.21 Type 2 diabetes mellitus with diabetic nephropathy (principal); I10 Essential (primary) hypertension
CPT/HCPCS: 36415; 80053; 82043; 82570

== ENCOUNTER 2023-11-03 08:37 | Outpatient (REF) | payer MEDICARE, MEDICAID, SELFPAY ==
[2023-11-03 11:39] LABS: Appearance Urine Clear; Color Urine Yellow; Glucose Urine UA >=1000 mg/dL (Negative); Leukocyte Esterase Urine Negative (Negative); Nitrite Urine Negative (Negative); Specific Gravity - Urine >= 1.030 (1.005-1.025); UMIC TRIGGER UA YES; Urine Blood Trace (Negative); Urine Ketones Negative (Negative); Urine Protein Negative (Neg-Trace)
[2023-11-03 11:46] LABS: Basophils Absolute Auto 0.1 X10*3/uL (0.0-0.2); Basophils Percent Auto 1.7 % (0-2); Eosinophils Absolute Auto 1.7 X10*3/uL (0.0-0.4); Eosinophils Percent Auto 20.5 % (0-4); Hematocrit 47.6 % (42.0-52.0); Hemoglobin 15.5 g/dl (14.0-18.0); Imm Gran Abs Auto 0.02 X10*3/uL (0.00-0.03); Imm Gran Pct Auto 0.2 % (0.0-0.4); MANUAL DIFF FLAG SCAN; Mean Corpuscular HGB Conc 32.6 g/dl (31.0-36.0); Mean Corpuscular Hemoglobin 29.5 pg (27.0-33.0); Mean Corpuscular Volume 90.7 fL (80.0-98.0); Mean Platelet Volume 11.6 fL (9.4-12.4); Monocytes Absolute Auto 0.5 X10*3/uL (0.1-1.2); Monocytes Percent Auto 5.6 % (2-11); Neutrophils Absolute Auto 3.9 x10*3/uL (2.0-8.3); Platelet Count 256 X10*3/uL (160-400); Red Blood Count 5.25 X10*6/uL (4.60-5.80); Red Cell Distribution Width 14.6 % (11.0-16.0); SCAN SMEAR FLAG 1; White Blood Count 8.2 X10*3/uL (4.8-10.8)
[2023-11-03 11:52] LABS: Estimated Average Glucose 163 mg/dL; Hemoglobin A1c % 7.3 % (<6.0)
[2023-11-03 12:11] LABS: Bacteria Urine None Seen (None Seen); Hyaline Casts Urine 0-2 /LPF (0-2); RBC Urine 0-2 /HPF (0-2); Squamous Epithelial Cell Urine 0-2 /HPF (0-2); WBC Urine 0-5 /HPF (0-5)
[2023-11-03 12:30] LABS: Anion Gap 12 (12-20); Blood Urea Nitrogen 23 mg/dL (9-16); Carbon Dioxide 26 mmol/L (22-29); Chloride 105 mmol/L (96-108); Cholesterol 153 mg/dL (<200); Estimated Glomerular Filt Rate 52; HDL Cholesterol 62 mg/dL (>40); Iron 118 mcg/dL (45-160); LDL Cholesterol Calculated 77 mg/dL (<100); Percent Iron Saturation 43 % (15-50); Potassium 4.4 mmol/L (3.3-5.1); SLIDE REVIEW VERIFIED; Sodium 139 mmol/L (135-145); Total Iron Binding Capacity 277 mcg/dL (228-428); Triglycerides 74 mg/dL (<150); Unsaturated Iron Binding 159 ug/dL; Uric Acid 4.6 mg/dL (3.4-7.0)
[2023-11-03 12:33] LABS: Creatinine Urine 99.25 mg/dL
[2023-11-03 12:39] LABS: Vitamin D 25-OH Total 50.8 ng/mL (>30)
== END 2023-11-03 08:38 | disposition home or self-care (01) ==
LOC: HO.HHCL 08:37
PROVIDERS: Visit Provider Physician Assistant
DX: N18.31 Chronic kidney disease, stage 3a (principal); I10 Essential (primary) hypertension; E11.9 Type 2 diabetes mellitus without complications
CPT/HCPCS: 36415; 80051; 80061; 81001; 82306; 82310; 82565; 82570; 83036; 83540; 84520; 84550; 85025

== ENCOUNTER 2023-11-22 11:19 | Emergency (ER) | payer MEDICARE, MEDICAID, SELFPAY ==
--- NOTE | ~2023-11-22 | CT_ITS ---
EXAMINATION: CT HEAD WITHOUT CONTRAST CT FACIAL BONES WITHOUT CONTRAST CT CERVICAL SPINE WITHOUT CONTRAST CLINICAL INFORMATION: Head trauma COMPARISON: Facial bones and head from 03/06/2012 TECHNIQUE: Imaging was performed from the skull base to vertex without intravenous administration of contrast. In addition, helical noncontrast CT imaging was acquired through the cervical spine and facial bones and source images were reviewed along with axial reconstructions and sagittal and coronal MPRs. This CT examination was performed using dose optimization techniques as appropriate, variously including the following: *Automated exposure control. *Adjustment of mA and/or kV according to patient size (this includes techniques or standardized protocols for targeted exams where dose is matched to indication/reason for exam; i.e. extremities or head). *Use of iterative reconstruction technique. DLP: 640 mGy-cm FINDINGS: Head: There is no evidence of acute intracranial hemorrhage or edematous territorial infarction. Butler-white matter differentiation is preserved. There is no abnormal attenuation within the brain parenchyma. The ventricles are normal in morphology and size. No evidence for obstructive hydrocephalus. No abnormal mass effect or midline shift. No extra-axial fluid collections. No acute soft tissue or osseous abnormalities. Maxillofacial Bones: No evidence of maxillofacial bone fractures. The zygomatic arches remain intact. No nasal bone fracture. The nasal septum remains midline. No evidence of mandibular or maxillary fracture. The mandibular condyles remain well-seated in their respective temporal articular grooves. Normal appearance of the intraconal and extraconal fat. No evidence of traumatic injury to the extraocular musculature or globes. The mastoid air cells are well aerated and visualized paranasal sinuses reveal mucosal thickening and fluid collections through the right frontal sinus and posterior air cells of right ethmoidal sinus as well as mild mucosal thickening of right sphenoidal sinus. No layering fluid collections. Cervical Spine: The atlantooccipital and atlantoaxial articulations remain well aligned. Straightening of the normal cervical lordosis. Otherwise, there is anatomic alignment of the vertebral bodies and posterior elements. No evidence of acute fracture or subluxation. The vertebral body heights and disc spaces are maintained. There are mild multilevel degenerative changes with marginal spurring and mild grade 1 anterior listhesis of C7 over T1. There is no prevertebral soft tissue swelling. The thyroid gland and remaining cervical soft tissues are within normal limits. The lung apices demonstrate to small approximately 3 mm each groundglass opacity nodules in left apex, seen on image 54 and 56 series [address]/CT cervical spine wo IV con IMPRESSION: 1. No acute intracranial, maxillofacial bone, or cervical abnormalities. 2. Paranasal sinus disease as described. 3. 2 small groundglass opacity nodules in the left apex. Per the 2017 revised Fleischner Society guidelines, no routine follow up is necessarily required in low-risk patients. In high-risk patients with a nodule in the upper lobe and/or demonstrating suspicious morphology, an optional CT follow-up at 12 months may be obtained. If stable at 12 months, no further follow-up is recommended.
--- NOTE | ~2023-11-22 | XR_ITS ---
EXAMINATION: XR HIP, RIGHT CLINICAL INFORMATION: Right hip pain following injury. COMPARISON: None available. TECHNIQUE: Two views of the right hip. FINDINGS: Postsurgical change consistent with total hip arthroplasty. No hardware fracture or dislocation. No evidence of asymmetric wear. Lucency adjacent to the acetabular component which could indicate hardware loosening in the appropriate clinical setting. Correlation with surgical history is recommended. No acute osseous fracture. Chondrocalcinosis throughout the right hip joint space. Adjacent dystrophic ossifications. Mild left hip osteoarthritis. No pelvic fracture. Degenerative disc disease within the lower lumbar spine. XR/XR hip RT w PEL1V IMPRESSION: 1. Right total hip arthroplasty. Lucency adjacent to the acetabular component which could indicate hardware loosening in the appropriate clinical setting. Correlation with surgical history is recommended. 2. No acute fracture or dislocation. 3. Chondrocalcinosis throughout the right hip. 4. Mild left hip osteoarthritis.
--- NOTE | 2023-11-22 11:25 | ED.GENADULT ---
HPI - General Adult General Chief complaint: Extremity Injury, Lower Stated complaint: FALL LAST WEEK,RLE PAIN PER EMS Time Seen by Provider: 11/22/23 11:25 Source: patient, family (patient's daughter), EMS and freight claim investigator (all interactions with this patient were facilitated by an [facility] senior sharepoint architect) Mode of arrival: EMS Limitations: language barrier (all interactions with this patient were facilitated by an [facility] senior sharepoint architect) History of Present Illness HPI narrative: Patient is a 77 year old assigned male at with a history of right hip replacement in 1997 presenting to the emergency department today with right hip pain and more frequent falls. Patient states that his right hip has been more painful lately and he has had multiple falls over the last few weeks. Patient denies any dizziness, lightheadedness, abdominal pain, nausea, vomiting, fever, chills, blurry vision, double vision, loss of vision, chest pain, difficulty breathing, shortness of breath, back pain, night sweats, pain with urination, increased urinary frequency, increased urinary urgency, blood in his urine or stool, syncope or a near syncopal episode, bowel incontinence, bladder incontinence, bowel retention, bladder retention, or any other complaints at this time. Severity scale (1-10): 3 Pain Consistency: constant Relieving factors: none Exacerbating factors: none Associated symptoms: denies other symptoms Treatments prior to arrival: none Related Data Home Medications ?Medication ?Instructions ?Recorded ?Confirmed aspirin 81 mg tablet,delayed 81 mg PO DAILY 08/05/20 08/02/23 release (Adult Low Dose Aspirin) atorvastatin 80 mg tablet 80 mg PO DAILY 08/05/20 08/02/23 cholecalciferol (vitamin D3) 50 50 mcg PO DAILY 08/05/20 08/02/23 mcg (2,000 unit) capsule lisinopril 20 1 tab PO DAILY 08/05/20 08/02/23 mg-hydrochlorothiazide 12.5 mg tablet tramadol 50 mg tablet 50 mg PO TID PRN 08/05/20 08/02/23 empagliflozin 10 mg tablet 10 mg PO DAILY 07/29/22 08/02/23 (Jardiance) metformin 500 mg tablet,extended 500 mg PO DAILY 07/29/22 08/02/23 release 24 hr Previous Rx's ?Medication ?Instructions ?Recorded amiodarone 200 mg tablet 200 mg PO .COMPLEX #100 tabs 08/02/23 Allergies Allergy/AdvReac Type Severity Reaction Status Date / Time ibuprofen [IBUPROFEN] Allergy Severe SWELLING Verified 11/22/23 12:01 Ibuprofen Allergy Unknown unknown Uncoded 12/16/22 12:49 Review of Systems Constitutional: Constitutional: Reports no additional constitutional complaints, Denies chills, Denies fever(s) and Denies night sweats Eyes: Eyes: Reports no additional eye complaints, Denies blurry vision, Denies change in vision, Denies diplopia, Denies eye discharge, Denies loss of vision and Denies eye pain ENT: Denies dizziness Cardiovascular: Cardiovascular: Reports no additional cardiovascular complaints, Denies chest pain, Denies lightheadedness, Denies Loss of Consciousness and Denies dyspnea Respiratory: Respiratory: Reports no additional respiratory complaints and Denies dyspnea Gastrointestinal: Gastrointestinal: Reports no additional gastrointestinal complaints, Denies abdominal pain, Denies melena, Denies hematochezia, Denies change in bowel habits and Denies change in stool character Genitourinary: Genitourinary: Reports no additional male genitourinary complaints, Denies hematuria, Denies oliguria, Denies difficulty urinating, Denies dysuria, Denies urinary frequency, Denies urinary hesitancy, Denies urinary incontinence and Denies urinary urgency Musculoskeletal: Musculoskeletal: Reports no additional musculoskeletal complaints, Denies numbness and Denies tingling Comments: hip pain Neurologic: Denies dizziness, Denies loss of vision, Denies numbness and Denies tingling Psychiatric: Psychiatric: Reports no additional psychiatric complaints Endocrine: Endocrine: Reports no additional endocrine complaints Hematologic/Lymphatic: Hematologic/Lymphatic: Reports no additional hematologic/lymphatic complaints Allergic/Immunologic: Allergic/Immunologic: Reports no additional allergic/immunologic complaints [facility] Past Medical History Attestation statement: The following information was validated with the patient. (all information validated with the patient's daughter) Source: old records reviewed, obtained from family (patient's daughter provided additional history and confirmed the history provided by the patient.) and nursing notes reviewed Medical History Hypertension Surgical History History of right hip replacement History of left knee surgery Family History Family History Mother No problems noted. Father No problems noted. Social History Social History Alcohol intake: current Alcohol intake frequency: holidays/special occasions only Patient Tobacco Use Status: Former Tobacco user Quit Date: 1983 Years Smoked: 10 +/- Advance Directives: No Advance Directives Information Provided: No Current occupational status: retired Physical Exam ED Vital Signs: Vital Signs - 24 hr 11/22/23 11:59 Temperature 97.7 F Pulse Rate 68 Respiratory Rate 18 Blood Pressure 130/65 Pulse Oximetry 94 Oxygen Delivery Method Room Air BMI result Body Mass Index 38.7 Const General: cooperative, no acute distress, alert and awake Nutritional Appearance: well nourished Orientation/consciousness: patient oriented x3 Limitations: no limitations HENMT Head: Yes normal to inspection and Yes atraumatic Ears: hearing grossly normal bilaterally and external ears normal General nose exam: Normal external nose present, no nasal discharge noted and no epistaxis Face and sinus: Yes normal facial exam, No abrasion and No laceration Mouth: Normal oral and palatal mucosa present, no drooling and no muffled voice Eyes General: appearance normal, both eyes and all related structures Periorbital: periorbital findings normal Eyelids: Yes eyelids normal Conjunctivae: conjunctivae normal Pupils: Equal, round and reactive pupils present EOM: EOMs intact bilaterally Neck Neck: Yes normal visual inspection, Yes full ROM and Yes no lymphadenopathy Chest Chest palpation & inspection: normal inspection of the chest Resp Effort & Inspection: normal respiratory effort and able to speak in complete sentences GI Inspection: Yes normal to inspection Neuro General: patient oriented x3 and moves all extremities Cranial nerves: Yes Equal, round and reactive pupils present Cognition (Neuro): normal cognition Motor exam (neuro): 5/5 motor strength present throughout Sensory Exam: Normal double simultaneous stimulation for sensation Coordination: [id number] test normal Extrem Other: pain with right hip ROM General: Yes normal to inspection and Yes capillary refill normal Psych Appearance: grossly normal Mental Status: mental status grossly normal Affect: normal affect Attitude: cooperative Thought process: Normal thought process present Thought content: Normal thought content present Insight: Good insight present (Psych) Medical Decision Making Medical Decision Making MDM Narrative: Patient is a 77 year old assigned male at with a history of right hip replacement in 1997 presenting to the emergency department today with right hip pain and increased frequency of falls. Patient's physical exam was as noted in the physical exam portion of this note. Patient's head, c-spine, and facial CTs showed no acute process. Patient's right hip x-ray showed possible loosening of prosthetic hardware as well as arthritis. I suspect the patient's pain is secondary to worsening arthritis and possible loosening of hardware. I explained my physical exam findings as well as all test results to the patient and the patient's daughter. I answered all questions asked by the patient and the patient's daughter. Case management met with the patient and his daughter and will help arrange at home physical therapy. Patient adamantly declined helped with short term rehab placement. I stressed the importance of the patient taking his medication as prescribed. I stressed the importance of the patient following up with his primary care provider and an orthopedic provider. I stressed the importance of the patient returning to the emergency department immediately if his symptoms were to worsen or if he were to develop any dizziness, shortness of breath, difficulty breathing, chest pain, blurry vision, loss of vision, nausea, vomiting, abdominal pain, fever, chills, back pain, or any other complaints. Patient and the patient's daughter verbalized agreement and understanding with this treatment plan and discharge. Differential Diagnosis Differential Diagnoses: The differential diagnosis associated with the presentation includes Right hip pain Right hip arthritis Loosening of right hip prosthesis Admission/Observation Consideration of admission/observation: Escalation of care including admission/observation considered Patient would have been admitted to the hospital had his work up had any findings where hospital admission was appropriate and his clinical presentation warranted hospital admission. Independent Interpretation I performed an independent interpretation of an: Plain X-Ray and CT Scan Interpretation: My interpretation is in agreement with the radiologist's impression of these imaging studies. EXAMINATION: XR HIP, RIGHT CLINICAL INFORMATION: Right hip pain following injury. COMPARISON: None available. TECHNIQUE: Two views of the right hip. FINDINGS: Postsurgical change consistent with total hip arthroplasty. No hardware fracture or dislocation. No evidence of asymmetric wear. Lucency adjacent to the acetabular component which could indicate hardware loosening in the appropriate clinical setting. Correlation with surgical history is recommended. No acute osseous fracture. Chondrocalcinosis throughout the right hip joint space. Adjacent dystrophic ossifications. Mild left hip osteoarthritis. No pelvic fracture. Degenerative disc disease within the lower lumbar spine. XR/XR hip RT w PEL1V IMPRESSION: 1. Right total hip arthroplasty. Lucency adjacent to the acetabular component which could indicate hardware loosening in the appropriate clinical setting. Correlation with surgical history is recommended. 2. No acute fracture or dislocation. 3. Chondrocalcinosis throughout the right hip. 4. Mild left hip osteoarthritis. Dictated By: Antione Bangura MD Signed By: Electronically signed by Antione Bangura MD 11/22/23 1416 EXAMINATION: CT HEAD WITHOUT CONTRAST CT FACIAL BONES WITHOUT CONTRAST CT CERVICAL SPINE WITHOUT CONTRAST CLINICAL INFORMATION: Head trauma COMPARISON: Facial bones and head from 03/06/2012 TECHNIQUE: Imaging was performed from the skull base to vertex without intravenous administration of contrast. In addition, helical noncontrast CT imaging was acquired through the cervical spine and facial bones and source images were reviewed along with axial reconstructions and sagittal and coronal MPRs. This CT examination was performed using dose optimization techniques as appropriate, variously including the following: *Automated exposure control. *Adjustment of mA and/or kV according to patient size (this includes techniques or standardized protocols for targeted exams where dose is matched to indication/reason for exam; i.e. extremities or head). *Use of iterative reconstruction technique. DLP: 640 mGy-cm FINDINGS: Head: There is no evidence of acute intracranial hemorrhage or edematous territorial infarction. Butler-white matter differentiation is preserved. There is no abnormal attenuation within the brain parenchyma. The ventricles are normal in morphology and size. No evidence for obstructive hydrocephalus. No abnormal mass effect or midline shift. No extra-axial fluid collections. No acute soft tissue or osseous abnormalities. Maxillofacial Bones: No evidence of maxillofacial bone fractures. The zygomatic arches remain intact. No nasal bone fracture. The nasal septum remains midline. No evidence of mandibular or maxillary fracture. The mandibular condyles remain well-seated in their respective temporal articular grooves. Normal appearance of the intraconal and extraconal fat. No evidence of traumatic injury to the extraocular musculature or globes. The mastoid air cells are well aerated and visualized paranasal sinuses reveal mucosal thickening and fluid collections through the right frontal sinus and posterior air cells of right ethmoidal sinus as well as mild mucosal thickening of right sphenoidal sinus. No layering fluid collections. Cervical Spine: The atlantooccipital and atlantoaxial articulations remain well aligned. Straightening of the normal cervical lordosis. Otherwise, there is anatomic alignment of the vertebral bodies and posterior elements. No evidence of acute fracture or subluxation. The vertebral body heights and disc spaces are maintained. There are mild multilevel degenerative changes with marginal spurring and mild grade 1 anterior listhesis of C7 over T1. There is no prevertebral soft tissue swelling. The thyroid gland and remaining cervical soft tissues are within normal limits. The lung apices demonstrate to small approximately 3 mm each groundglass opacity nodules in left apex, seen on image 54 and 56 series [address]/CT cervical spine wo IV con IMPRESSION: 1. No acute intracranial, maxillofacial bone, or cervical abnormalities. 2. Paranasal sinus disease as described. 3. 2 small groundglass opacity nodules in the left apex. Per the 2017 revised Fleischner Society guidelines, no routine follow up is necessarily required in low-risk patients. In high-risk patients with a nodule in the upper lobe and/or demonstrating suspicious morphology, an optional CT follow-up at 12 months may be obtained. If stable at 12 months, no further follow-up is recommended. Dictated By: Sean Caraballo MD Signed By: Electronically signed by Sean Caraballo MD 11/22/23 2305 Radiology Impression Discussion of test interpretation with radiology: I have reviewed the radiologist's reading. Independent Historian Clinical information obtained from an independent historian. History obtained from or confirmed by: EMS (EMS provided additional history and confirmed the history provided by the patient) and Other (patient's daughter provided additional history and confirmed the history provided by the patient.) Discharge Plan Discharge Clinical Impression: Hip pain, Fall Patient Disposition: Home, Self-Care Instructions: Fall Prevention for Older Adults (ED), Hip Pain (ED) Additional Instructions: Follow up with your primary care provider and an orthopedic provider. Return to the emergency department immediately if your symptoms worsen or if you develop any dizziness, shortness of breath, difficulty breathing, chest pain, blurry vision, loss of vision, nausea, vomiting, abdominal pain, fever, chills, back pain, or any other complaints. Prescriptions: No Action cholecalciferol (vitamin D3) 50 mcg (2,000 unit) capsule 50 mcg PO DAILY tramadol 50 mg tablet 50 mg PO TID PRN lisinopril-hydrochlorothiazide 20-12.5 mg tablet 1 tab PO DAILY atorvastatin 80 mg tablet 80 mg PO DAILY aspirin [Adult Low Dose Aspirin] 81 mg tablet,delayed release (DR/EC) 81 mg PO DAILY Jardiance 10 mg tablet 10 mg PO DAILY metformin 500 mg tablet extended release 24 hr 500 mg PO DAILY amiodarone 200 mg tablet 200 mg PO .COMPLEX Qty: 100 3RF Rx Instructions: 200 mg orally BID x 14 days then 1 tablet daily; Referrals: [facility] [Provider Group] (Call to establish and follow up with an orthopedic provider.) Name,MD Jon [Primary Care Provider] - Print Language: Chilean
[2023-11-22 11:27] VITALS: BP 136/66; PULSE 77; O2SAT 100
[2023-11-22 11:59] VITALS: BP 130/65; PULSE 68; RESP 18; TEMP 36.5; O2SAT 94; BMI 38.7
--- NOTE | 2023-11-22 12:01 | PC.NURSE ---
able to stand and bear weight on leg to change into hospital attire
--- NOTE | 2023-11-22 14:45 | MHC.CM.ED ---
Received case management consult from Ynes BULLOCK. Patient came to the ER. Work up essentially negative. Patient requesting physical therapy at home. Met with patient and daughter, Shayy, in regards to discharge planning. Patient's primary language is Samoan. Shayy is able to speak Samoan and Indian. 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 Patient lives alone, ambulates with a cane and had no services prior to coming to the hospital. PCP verified. No HCP on file. Patient normally drives. However he has been having difficulty d/t leg pain. Both requesting prison and physical therapy at home. Both agreeable to referral to [facility]. Referral made via [facility]. Shayy will transport patient home. Patient, Shayy, and Ynes BULLOCK aware. Continue to monitor for d/c needs.
[2023-11-22 14:52] VITALS: BP 134/66; PULSE 66; RESP 18; TEMP 36.5; O2SAT 95
== END 2023-11-22 14:53 | disposition home or self-care (01) ==
PROVIDERS: Emergency Provider Emergency Medicine; PCP Internal Medicine Geriatric Medicine
DX: M25.551 Pain in right hip (principal); R29.6 Repeated falls; Z96.641 Presence of right artificial hip joint; Z91.81 History of falling
CPT/HCPCS: 70450; 70486; 72125; 73502; 99282; 99284

== ENCOUNTER 2023-11-26 10:46 | Outpatient (AMB) | payer MEDICARE, MEDICAID, SELFPAY ==
--- NOTE | 2023-11-26 10:51 | A.OFFVIS_ITS ---
Intake Vital Signs 11/26/23 11:03 Height 5 ft 6 in Weight 240 lb BMI 38.7 Intake Visit Reasons: Newprob-right hip pain-fell 11/22/23 Intake Note: Kt sears 77 year old male presents today with his step daughter for an evaluation of right hip pain, DOI 11/22/23. Patient reports that he fell landing on both of his knee. He presented to [facility] ED where xrays were taken and referred to orthopedics. Currently he has pain in his right hip as well as his right knee. He hears a clicking noise in his knee. He will be working with PT starting next week. Allergies ibuprofen [IBUPROFEN] Allergy (Severe, Verified 11/26/23 10:54) SWELLING Ibuprofen Allergy (Unknown, Uncoded 11/26/23 10:54) unknown Medication List - Last Reconciled 11/26/23 by Gerard Jama PA-C amiodarone 200 mg orally BID x 14 days then 1 tablet daily; aspirin (Adult Low Dose Aspirin) 81 mg PO DAILY atorvastatin 80 mg PO DAILY cholecalciferol (vitamin D3) 50 mcg PO DAILY empagliflozin (Jardiance) 10 mg PO DAILY lisinopril-hydrochlorothiazide 20-12.5 mg 1 tab PO DAILY metformin ER 500 mg PO DAILY tramadol 50 mg PO TID PRN HPI Newprob-right hip pain-fell 11/22/23 HPI Details 77-year-old male who presents to the off ice today with his stepdaughter for evaluation of right hip pain after he sustained a fall landing on his both knees, 11/22/23. He was seen at ED where x-rays were performed and he was referred to our office. He currently states he has pain in his right hip pain which radiates to the groin area. His hip pain is aggravated with walking and lifting the leg. He also c/o pain and clicking sensation in his right knee. He walks with a limp. He is scheduled for physical therapy next week. He has history of right hip surgery by Dr. Zina torres in 1996. He has a history of diabetes. [facility] Medical History (Updated 11/26/23 @ 11:13 by Gerard Jama PA-C) Diabetes Hypertension Surgical History (Updated 11/26/23 @ 21:26 by Gerard Jama PA-C) History of right hip replacement History of left knee surgery Family History Mother No problems noted. Father No problems noted. Social History Alcohol intake: current Alcohol intake frequency: holidays/special occasions only Patient Tobacco Use Status: Former Tobacco user Quit Date: 1983 Years Smoked: 10 +/- Current occupational status: retired Review of Systems Const All systems reviewed & are unremarkable except as noted in HPI and below Physical Exam Vital Signs: BMI result Body Mass Index 38.7 Const General: cooperative and no acute distress Orientation/consciousness: patient oriented x3 Resp Effort & Inspection: normal respiratory effort and able to speak in complete sentences Cardio Peripheral pulses: Peripheral pulses 2+ throughout Neuro General: patient oriented x3 Extrem Other: Bilat knee skin intact, no erythema or joint effusion. Tenderness along the medial joint line. ROM full with crepitus. Negative steinmans. No ligamentous laxity. NVI. Right hip: Normal to inspection. He does have pain in groin with ROM. He also has pain with hip flexion. Flexion is significantly limited when compared to the contralateral side. Office Procedures Joint Injection/Drain Joint Injection/Drain Primary Site: right knee Secondary Site: left knee Prep: site was prepped using aseptic technique, ethochloride spray was applied and injection warnings given Injected: 40 mg of, DepoMedrol, with 8 mL of, 1% plain lidocaine and in the joint Approach Used: anterolateral Procedure: The patient tolerated the procedure well and there was some relief with the local anesthesia Coding 04062 - Glenohumeral/Tronchanteric Bursa/Intraarticular Procedure code (CPT) selection complete Results Reviewed Results Reviewed: XR hip RT w PEL1V 11/22/23 IMPRESSION: 1. Right total hip arthroplasty. Lucency adjacent to the acetabular component which could indicate hardware loosening in the appropriate clinical setting. Correlation with surgical history is recommended. 2. No acute fracture or dislocation. 3. Chondrocalcinosis throughout the right hip. 4. Mild left hip osteoarthritis. Assessment & Plan Assessment & Plan (1) Osteoarthritis of knees, bilateral: Code(s): M17.0 - Bilateral primary osteoarthritis of knee Plan Dr Rain was available to see Mr Contreras with me today to further evaluate the hip. We briefly discussed options for the right hip which include conservative vs surgical intervention. At this time, he would like to avoid any major surgeries. He would like to see if he can manage his pain with activity moification and would like to address his knee pain. We discussed options today which include repeat steroid injection. He did consent to move forward with the bilat knee injection, which was tolerated well. I recommended rest, ice and elevation and OTC anti-inflammatories PRN for discomfort. We also discussed their diabetes and the effect the steroid can have on their blood glucose levels; therefore, they will continue to monitor these very closely over the next 72 hours. If there are any concerns, they should report to the ED immediately. Patient Instructions: Scribed for Gerard Jama PA-C, by [facility] manager, on 11/26/2023 at 11:15 AM Gerard PADILLA PA-C, have personally reviewed and agree with the information entered by the scribe. Coding Level of Care Code Est Pt Level 3 (23409) Diagnoses Osteoarthritis of knees, bilateral M17.0 CPT Codes Coding - Joint 7: 64907 - Glenohumeral/Tronchanteric Bursa/Intraarticular ([id number])
[2023-11-26 11:03] VITALS: BMI 38.7
== END 2023-11-26 11:52 | disposition home or self-care (01) ==
PROVIDERS: PCP Internal Medicine Geriatric Medicine; Visit Provider Physician Assistant
DX: M17.0 Bilateral primary osteoarthritis of knee (principal)
CPT/HCPCS: 20610; 99213

== ENCOUNTER → 2023-11-26 10:46 | Outpatient (BNVA) | payer MEDICARE, OTHER, SELFPAY | PROVIDERS: PCP Internal Medicine Geriatric Medicine; Visit Provider Physician Assistant | DX: M17.0 Bilateral primary osteoarthritis of knee (principal) | CPT/HCPCS: 20610; 99212; J1010; J1020 ==

== ENCOUNTER 2024-01-19 20:32 | Emergency (ER) | payer OTHER, SELFPAY ==
--- NOTE | ~2024-01-19 | CT_ITS ---
EXAMINATION: CT HEAD WITHOUT CONTRAST CLINICAL INFORMATION: Fall. Head trauma. COMPARISON: Previous head CT most recent November 2023 TECHNIQUE: Contiguous axial imaging was performed from the skull base to vertex without intravenous administration of contrast. This CT examination was performed using dose optimization techniques as appropriate, variously including the following: *Automated exposure control *Adjustment of mA and/or kV according to patient size (this includes techniques or standardized protocols for targeted exams where dose is matched to indication/reason for exam; i.e. extremities or head) *Use of iterative reconstruction technique DLP: 760 mGy-cm FINDINGS: There is no evidence of an extra-axial collection. There is no evidence of intra or extra-axial hemorrhage. The ventricles and extra-axial CSF spaces are prominent suggestive of mild generalized atrophy. There is mild nonspecific periventricular white matter disease. No mass, mass effect or infarct. No skull fracture. CT/CT head/brain wo IV con IMPRESSION: No acute intracranial findings.
--- NOTE | ~2024-01-19 | CT_ITS ---
EXAMINATION: CT CERVICAL SPINE WITHOUT CONTRAST CLINICAL INFORMATION: Fall. Pain. COMPARISON: Previous cervical spine CT November 2023 TECHNIQUE: Axial images through the cervical spine without contrast. Sagittal and coronal reconstructions. This CT examination was performed using dose optimization techniques as appropriate, variously including the following: *Automated exposure control *Adjustment of mA and/or kV according to patient size (this includes techniques or standardized protocols for targeted exams where dose is matched to indication/reason for exam; i.e. extremities or head) *Use of iterative reconstruction technique DLP: 410 mGy-cm FINDINGS: There is mild anterior subluxation of C7 with respect to T1 measuring 2 mm. Bone alignment is otherwise normal. No fracture or dislocation. Multilevel degenerative spondylosis greatest at C5-C6 and C6-C7. Mild disc space narrowing at C5-C6 and C6-C7. Degenerative changes at the C1 dens articulation. Prevertebral soft tissues are normal. Bilateral carotid calcification. Visualized lung apices are clear. Prominent aortic arch measuring 3.[address]/CT cervical spine wo IV con IMPRESSION: Degenerative changes. No fracture or dislocation. Fleischner guidelines were followed.
--- NOTE | ~2024-01-19 | CT_ITS ---
EXAMINATION: CT ABDOMEN AND PELVIS WITHOUT CONTRAST CLINICAL INFORMATION: Trauma with abdominal pain after fall COMPARISON: None available. TECHNIQUE: Multidetector volumetric imaging was performed from the superior aspect of the liver through the pubic symphysis. Sagittal and coronal reformatted images were obtained on the technologist's workstation. This CT examination was performed using dose optimization techniques as appropriate, variously including the following: *Automated exposure control *Adjustment of mA and/or kV according to patient size (this includes techniques or standardized protocols for targeted exams where dose is matched to indication/reason for exam; i.e. extremities or head) *Use of iterative reconstruction technique DLP: 864 mGy-cm FINDINGS: LUNG BASES: Basilar atelectasis and some groundglass change is seen. No pleural effusions or pneumothorax. LIVER, GALLBLADDER, AND BILIARY TREE: The liver is normal in size, shape, and attenuation. No focal hepatic lesion or biliary ductal dilatation is present. The gallbladder is unremarkable with no evidence of radiopaque gallstones, gallbladder wall thickening, or obvious pericholecystic inflammatory changes. PANCREAS: Unremarkable. SPLEEN: Unremarkable. ADRENAL GLANDS: Unremarkable. KIDNEYS AND URETERS: The kidneys are normal in size, shape, and attenuation. No hydronephrosis, hydroureter, or calculi seen. No perinephric stranding. BLADDER: The bladder is markedly distended rising above the umbilicus. GASTROINTESTINAL TRACT: A small hiatal hernia is present. Colonic diverticulosis is noted throughout the colon without evidence of diverticulitis The small and large bowel are unremarkable. The appendix is markedly dilated at 1.4 cm but it is filled with air. The appendix wall is mildly thickened at 3 mm cyst. No inflammatory changes are seen around the periappendiceal fat.. ABDOMINAL WALL: No significant hernia is appreciated. Is a tiny periumbilical hernia seen containing only fat. LYMPH NODES: No retroperitoneal lymphadenopathy. VASCULAR: Calcific atherosclerotic changes are present in the aorta and iliofemoral vessels. There is mild aneurysmal dilatation of the infrarenal aorta with a maximum dimension of 3 cm. Follow-up ultrasound every 3 years is recommended. PELVIC VISCERA: There is mild to moderate BPH. Seminal vesicles appear normal. OSSEOUS STRUCTURES: No fractures are seen. Mild degenerative changes are present in the spine most marked at L4-L5 where there is grade 1 anterolisthesis and bilateral L4 pars defects. A right total hip prosthesis is present. CT/CT abdomen pelvis wo IV con IMPRESSION: 1. No evidence of a traumatic injury in the abdomen or pelvis. 2. Small hiatal hernia. 3. Colonic diverticulosis without diverticulitis. 4. Markedly distended bladder with BPH. 5. 3 cm infrarenal abdominal aortic aneurysm. Follow-up ultrasound every 3 years is recommended. 6. 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 7. Degenerative changes in the spine with grade 1 anterolisthesis L4-L5 and bilateral L4 pars defects. Fleischner guidelines were followed.
--- NOTE | ~2024-01-19 | CT_ITS ---
EXAMINATION: CT FACIAL BONES WITHOUT CONTRAST CLINICAL INFORMATION: Unwitnessed fall. Facial swelling and pain. COMPARISON: None available. TECHNIQUE: Axial images through the facial bones without contrast. Sagittal and coronal reconstructions obtained. This CT examination was performed using dose optimization techniques as appropriate, variously including the following: *Automated exposure control. *Adjustment of mA and/or kV according to patient size (this includes techniques or standardized protocols for targeted exams where dose is matched to indication/reason for exam; i.e. extremities or head). *Use of iterative reconstruction technique. DLP: 325 mGy-cm FINDINGS: There is soft tissue swelling over the maxilla and right upper lip. There is a question of a nondisplaced right nasal bone fracture. No other fracture seen. There is partial soft tissue opacification of the right frontal sinus, right ethmoid sinuses and right nasal cavity. There is membranous soft tissue thickening seen in the sphenoid sinus. The orbits are normal. Mastoid air cells and middle ears and temporomandibular joints are normal. The orbits are normal. Patient is edentulous. CT/CT facial bones wo IV con IMPRESSION: Soft tissue swelling over the maxilla and upper lip. Question of right nondisplaced nasal bone fracture. Partial soft tissue opacification of the right frontal and ethmoid sinuses and right nasal cavity, question related to trauma.
--- NOTE | 2024-01-19 20:39 | ED.GENADULT ---
HPI - General Adult General Chief complaint: Fall Stated complaint: fall +LOC, ETOH, bleeding Time Seen by Provider: 01/19/24 21:05 Related Data Home Medications ?Medication ?Instructions ?Recorded ?Confirmed aspirin 81 mg tablet,delayed 81 mg PO DAILY 08/05/20 11/26/23 release (Adult Low Dose Aspirin) atorvastatin 80 mg tablet 80 mg PO DAILY 08/05/20 11/26/23 cholecalciferol (vitamin D3) 50 50 mcg PO DAILY 08/05/20 11/26/23 mcg (2,000 unit) capsule lisinopril 20 1 tab PO DAILY 08/05/20 11/26/23 mg-hydrochlorothiazide 12.5 mg tablet tramadol 50 mg tablet 50 mg PO TID PRN 08/05/20 11/26/23 empagliflozin 10 mg tablet 10 mg PO DAILY 07/29/22 11/26/23 (Jardiance) metformin 500 mg tablet,extended 500 mg PO DAILY 07/29/22 11/26/23 release 24 hr Previous Rx's ?Medication ?Instructions ?Recorded amiodarone 200 mg tablet 200 mg PO .COMPLEX #100 tabs 08/02/23 amoxicillin 875 mg-potassium 1 tab PO BID #14 tabs 01/20/24 clavulanate 125 mg tablet Allergies Allergy/AdvReac Type Severity Reaction Status Date / Time ibuprofen [IBUPROFEN] Allergy Severe SWELLING Verified 01/19/24 20:41 Ibuprofen Allergy Unknown unknown Uncoded 01/19/24 20:41 [facility] Past Medical History Medical History Diabetes Hypertension Surgical History History of right hip replacement History of left knee surgery Family History Family History Mother No problems noted. Father No problems noted. Social History Social History Alcohol intake: current Alcohol intake frequency: holidays/special occasions only Patient Tobacco Use Status: Former Tobacco user Years Smoked: 10 +/- Advance Directives: No Advance Directives Information Provided: No Do you have a plan to hurt others: No Plan Current occupational status: retired Physical Exam ED Vital Signs: Vital Signs - 24 hr 01/19/24 20:40 01/19/24 22:28 01/20/24 00:20 Temperature 97.6 F 97.6 F Pulse Rate 65 66 71 Respiratory Rate 17 18 18 Blood Pressure 109/56 L 127/67 105/45 L Pulse Oximetry 97 95 95 Oxygen Delivery Method Room Air Room Air Room Air 01/20/24 02:25 Temperature 97.8 F Pulse Rate 63 Respiratory Rate 16 Blood Pressure 115/50 L Pulse Oximetry 95 Oxygen Delivery Method Room Air BMI result Body Mass Index 27.3 Course Course Course Narrative: This is a rapid medical exam performed by Jethro Blum NP: Additional HPI, ROS, PE not included below will be deferred to primary provider. Patient is a 78-year-old male presenting to the ED after a fall. Unwitnessed, he called neighbor who called daughter. When she arrived there was clotted blood on the floor. She reports he was drinking alcohol today. Not anticoagulated. Complaining of frontal and occipital headache. Swelling to mouth/face. Also c/o neck pain. C-collar applied in triage and relief charge nurse notified. Plan: CT head and C-spine, labs, EKG Medical Decision Making Lab Data 01/19/24 20:58 01/19/24 20:58 Labs: Lab Results 01/19/24 01/19/24 Range/Units 20:58 20:59 WBC 9.3 (4.8-10.8) X10*3/uL RBC 4.14 L D (4.60-5.80) X10*6/uL Hgb 12.8 L (14.0-18.0) g/dl Hct 37.6 L D (42.0-52.0) % MCV 90.8 (80.0-98.0) fL MCH 30.9 (27.0-33.0) pg MCHC 34.0 (31.0-36.0) g/dl RDW 14.0 (11.0-16.0) % Plt Count 248 (160-400) X10*3/uL MPV 10.4 (9.4-12.4) fL Immature Gran % (Auto) 0.4 (0.0-0.4) % Neut % (Auto) 56.4 (45-73) % Lymph % (Auto) 23.2 (20-40) % [place] % (Auto) 4.4 (2-11) % Eos % (Auto) 14.1 H (0-4) % Baso % (Auto) 1.5 (0-2) % Lymph # (Auto) 2.2 (1.2-4.9) X10*3/uL [place] # (Auto) 0.4 (0.1-1.2) X10*3/uL Eos # (Auto) 1.3 H (0.0-0.4) X10*3/uL Baso # (Auto) 0.1 (0.0-0.2) X10*3/uL Abs Immat Gran (auto) 0.04 H (0.00-0.03) X10*3/uL Absolute Neuts (auto) 5.2 (2.0-8.3) x10*3/uL Absolute Nucleated RBC 0.000 (0.0-0.012) X10*3/uL Nucleated RBC % (auto) 0.0 (0.0-0.2) /100WBC PT 10.6 L (11.1-13.3) SEC INR 0.9 (0.9-1.1) Sodium 133 L (135-145) mmol/L Potassium 3.9 (3.3-5.1) mmol/L Chloride 103 (96-108) mmol/L Carbon Dioxide 18 L (22-29) mmol/L Anion Gap 16 (12-20) BUN 19 H (9-16) mg/dL Creatinine 1.13 (0.5-1.4) mg/dL Estim Creat Clear Calc 49.9 Estimated GFR > 60 Random Glucose 104 (60-115) mg/dL Calcium 8.7 D (8.4-10.2) mg/dL Total Bilirubin 0.3 (0.0-1.0) mg/dL AST 26 (5-37) U/L ALT 23 (0-40) U/L Alkaline Phosphatase 85 (39-117) U/L Troponin I High Sens 3.5 (<3.5-35.0) ng/L Total Protein 7.1 (6.5-8.0) g/dL Albumin 3.8 (3.5-5.0) g/dL Ethyl Alcohol 202 mg/dL Discharge Plan Discharge Clinical Impression: Fracture closed, nasal bone, Laceration of lip, Abdominal aortic aneurysm Patient Disposition: Home, Self-Care Instructions: Nasal Fracture (ED), Nonruptured Abdominal Aortic Aneurysm (DC), Facial Laceration (ED) Additional Instructions: Suture removal in 5 days Small aneurysm was noted in your abdominal aorta. It was approximately 3 cm in size. Follow-up advised. Prescriptions: New amoxicillin-pot clavulanate 875-125 mg tablet 1 tab PO BID Qty: 14 0RF No Action cholecalciferol (vitamin D3) 50 mcg (2,000 unit) capsule 50 mcg PO DAILY tramadol 50 mg tablet 50 mg PO TID PRN lisinopril-hydrochlorothiazide 20-12.5 mg tablet 1 tab PO DAILY atorvastatin 80 mg tablet 80 mg PO DAILY aspirin [Adult Low Dose Aspirin] 81 mg tablet,delayed release (DR/EC) 81 mg PO DAILY Jardiance 10 mg tablet 10 mg PO DAILY metformin 500 mg tablet extended release 24 hr 500 mg PO DAILY amiodarone 200 mg tablet 200 mg PO .COMPLEX Qty: 100 3RF Rx Instructions: 200 mg orally BID x 14 days then 1 tablet daily; Referrals: Name,MD Jon [Primary Care Provider] - 01/25/24 Print Language: Uzbek
[2024-01-19 20:40] VITALS: BP 109/56; PULSE 65; RESP 17; TEMP 36.4; O2SAT 97; BMI 27.3
--- NOTE | 2024-01-19 20:42 | ECG_ITS ---
Test Reason : FALL Blood Pressure : / mmHG Vent. Rate : 064 BPM Atrial Rate : 064 BPM P-R Int : 202 ms QRS Dur : 108 ms QT Int : 464 ms P-R-T Axes : 057 031 040 degrees QTc Int : 478 ms Normal sinus rhythm Normal ECG When compared with ECG of 25-JAN-2016 16:23, Premature ventricular complexes are no longer Present Nonspecific T wave abnormality has replaced inverted T waves in Inferior leads Referred By: Padmini Blum Electronically Signed By:ELLIOTT BOYER MD
[2024-01-19 21:03] LABS: MANUAL DIFF FLAG NO
[2024-01-19 21:06] LABS: Basophils Absolute Auto 0.1 X10*3/uL (0.0-0.2); Basophils Percent Auto 1.5 % (0-2); Eosinophils Absolute Auto 1.3 X10*3/uL (0.0-0.4); Eosinophils Percent Auto 14.1 % (0-4); Hematocrit 37.6 % (42.0-52.0); Hemoglobin 12.8 g/dl (14.0-18.0); Imm Gran Abs Auto 0.04 X10*3/uL (0.00-0.03); Imm Gran Pct Auto 0.4 % (0.0-0.4); Lymphocytes Absolute Auto 2.2 X10*3/uL (1.2-4.9); Lymphocytes Percent Auto 23.2 % (20-40); Mean Corpuscular Hemoglobin 30.9 pg (27.0-33.0); Mean Corpuscular Volume 90.8 fL (80.0-98.0); Mean Platelet Volume 10.4 fL (9.4-12.4); Monocytes Absolute Auto 0.4 X10*3/uL (0.1-1.2); Monocytes Percent Auto 4.4 % (2-11); Neutrophils Absolute Auto 5.2 x10*3/uL (2.0-8.3); Neutrophils Percent Auto 56.4 % (45-73); Platelet Count 248 X10*3/uL (160-400); Red Blood Count 4.14 X10*6/uL (4.60-5.80); White Blood Count 9.3 X10*3/uL (4.8-10.8)
[2024-01-19 21:14] LABS: INTERNATIONAL NORM RATIO 0.9 (0.9-1.1); Prothrombin Time 10.6 SEC (11.1-13.3)
--- NOTE | 2024-01-19 21:18 | ED_ITS ---
HPI - Fall General Chief Complaint: Fall Stated Complaint: fall +LOC, ETOH, bleeding Time Seen by Provider: 01/19/24 21:05 History of Present Illness HPI Narrative: Patient is a 78-year-old male presents today with an unwitnessed fall at home. Positive EtOH. Patient denies any chest pain palpitation. Denies any focal weakness. Question tripped. Complaining of pain to his face. Pain to his abdomen. No fever no chills. No focal weakness history of diabetes. History of hypertension. History of nonsustained V-tach patient on amiodarone. Related Data Home Medications ?Medication ?Instructions ?Recorded ?Confirmed aspirin 81 mg tablet,delayed 81 mg PO DAILY 08/05/20 11/26/23 release (Adult Low Dose Aspirin) atorvastatin 80 mg tablet 80 mg PO DAILY 08/05/20 11/26/23 cholecalciferol (vitamin D3) 50 50 mcg PO DAILY 08/05/20 11/26/23 mcg (2,000 unit) capsule lisinopril 20 1 tab PO DAILY 08/05/20 11/26/23 mg-hydrochlorothiazide 12.5 mg tablet tramadol 50 mg tablet 50 mg PO TID PRN 08/05/20 11/26/23 empagliflozin 10 mg tablet 10 mg PO DAILY 07/29/22 11/26/23 (Jardiance) metformin 500 mg tablet,extended 500 mg PO DAILY 07/29/22 11/26/23 release 24 hr Previous Rx's ?Medication ?Instructions ?Recorded amiodarone 200 mg tablet 200 mg PO .COMPLEX #100 tabs 08/02/23 amoxicillin 875 mg-potassium 1 tab PO BID #14 tabs 01/20/24 clavulanate 125 mg tablet Allergies Allergy/AdvReac Type Severity Reaction Status Date / Time ibuprofen [IBUPROFEN] Allergy Severe SWELLING Verified 01/19/24 20:41 Ibuprofen Allergy Unknown unknown Uncoded 01/19/24 20:41 Review of Systems 2 Review of Systems: Positive fall, positive head injury Yes all other systems are reviewed and are negative PMFSH Past Medical History Attestation statement: The following information was validated with the patient. Medical History Diabetes Hypertension Surgical History History of right hip replacement History of left knee surgery Family History Family History Mother No problems noted. Father No problems noted. Social History Social History Alcohol intake: current Alcohol intake frequency: holidays/special occasions only Patient Tobacco Use Status: Former Tobacco user Years Smoked: 10 +/- Advance Directives: No Advance Directives Information Provided: No Do you have a plan to hurt others: No Plan Current occupational status: retired Physical Exam 2 Vital Signs: Vital Signs: Last Vital Signs Temp 97.8 F 01/20/24 02:25 Pulse 63 01/20/24 02:25 Resp 16 01/20/24 02:25 BP 115/50 L 01/20/24 02:25 Pulse Ox 95 01/20/24 02:25 O2 Del Method Room Air 01/20/24 02:25 BMI result Body Mass Index 27.3 Appearance: Alert. Oriented X3. No acute distress. Eyes: Pupils equal, round and reactive to light. ENT: Pharynx normal. Upper lip laceration that is through and through near the vermilion border approximately 2.5 cm in size Neck: Normal inspection. Neck supple. No lymph nodes noted. No crepitus CVS: Normal heart rate and rhythm. Pulses normal. Normal S1 and S2 Respiratory: No respiratory distress. Breath sounds normal. No Wheezing. No rales Abdomen: Mild right abdominal tenderness. No rebound or guardin. No distention. Skin: Skin warm and dry. Normal skin color. Normal skin turgor. Extremities: No lower extremity edema. Neurovascular intact to all extremities. No Lacerations. No Rash Neuro: Oriented X 3. No motor deficit. No sensory deficit. Moving all extermities. No slurred speech Procedures Laceration Upper lip: Site: lip Side (If applicable): left Size (cm): 2.5 Description: stellate Depth: [id number] Local Anesthetic: lidocaine 1% Amount of anesthesia used (mL): 3 Pre-repair: wound explored and irrigated extensively Skin layer closed with: nylon Size (cm): 5-0 Number of sutures: 3 Technique: simple, interrupted Medical Decision Making Medical Decision Making MDM Narrative: Patient is 78 years old status post fall. Patient was drinking heavily then fell. Hit his upper lip. CT scan of the head C-spine and face was done. There is a possible nondisplaced nasal fracture. Patient not on any blood thinners. Has a history of irregular heartbeat is on amiodarone. Patient denies any chest pain or diaphoresis. His EKG showed a sinus pattern heart rate is 60 GA QRS QTC normal no acute ST segment elevation. Patient monitored in the emergency department for 6 hours. Now clinically sober. Wants to go home. Patient's wound was closed. Explained to patient the need to stop drinking alcohol. Will start patient on Augmentin for the facial laceration that is through and through. Please see procedure note for laceration closure. Explained to patient head injury precaution. Increased nausea vomiting dizziness returned. Close follow-up on an outpatient basis. Stop drinking alcohol. Take his antibiotics. Differential Diagnosis Differential Diagnoses: The differential diagnosis associated with the presentation includes Arrhythmia, gross intoxication. Head injury, facial injury, C-spine injury Admission/Observation Consideration of admission/observation: Escalation of care including admission/observation considered Lab Data MDM Lab Attestation statement: I reviewed the patient's lab results. 01/19/24 20:58 01/19/24 20:58 Labs: Lab Results 01/19/24 01/19/24 Range/Units 20:58 20:59 WBC 9.3 (4.8-10.8) X10*3/uL RBC 4.14 L D (4.60-5.80) X10*6/uL Hgb 12.8 L (14.0-18.0) g/dl Hct 37.6 L D (42.0-52.0) % MCV 90.8 (80.0-98.0) fL MCH 30.9 (27.0-33.0) pg MCHC 34.0 (31.0-36.0) g/dl RDW 14.0 (11.0-16.0) % Plt Count 248 (160-400) X10*3/uL MPV 10.4 (9.4-12.4) fL Immature Gran % (Auto) 0.4 (0.0-0.4) % Neut % (Auto) 56.4 (45-73) % Lymph % (Auto) 23.2 (20-40) % [place] % (Auto) 4.4 (2-11) % Eos % (Auto) 14.1 H (0-4) % Baso % (Auto) 1.5 (0-2) % Lymph # (Auto) 2.2 (1.2-4.9) X10*3/uL [place] # (Auto) 0.4 (0.1-1.2) X10*3/uL Eos # (Auto) 1.3 H (0.0-0.4) X10*3/uL Baso # (Auto) 0.1 (0.0-0.2) X10*3/uL Abs Immat Gran (auto) 0.04 H (0.00-0.03) X10*3/uL Absolute Neuts (auto) 5.2 (2.0-8.3) x10*3/uL Absolute Nucleated RBC 0.000 (0.0-0.012) X10*3/uL Nucleated RBC % (auto) 0.0 (0.0-0.2) /100WBC PT 10.6 L (11.1-13.3) SEC INR 0.9 (0.9-1.1) Sodium 133 L (135-145) mmol/L Potassium 3.9 (3.3-5.1) mmol/L Chloride 103 (96-108) mmol/L Carbon Dioxide 18 L (22-29) mmol/L Anion Gap 16 (12-20) BUN 19 H (9-16) mg/dL Creatinine 1.13 (0.5-1.4) mg/dL Estim Creat Clear Calc 49.9 Estimated GFR > 60 Random Glucose 104 (60-115) mg/dL Calcium 8.7 D (8.4-10.2) mg/dL Total Bilirubin 0.3 (0.0-1.0) mg/dL AST 26 (5-37) U/L ALT 23 (0-40) U/L Alkaline Phosphatase 85 (39-117) U/L Troponin I High Sens 3.5 (<3.5-35.0) ng/L Total Protein 7.1 (6.5-8.0) g/dL Albumin 3.8 (3.5-5.0) g/dL Ethyl Alcohol 202 mg/dL Independent Interpretation I performed an independent interpretation of an: EKG (My interpretation patient's EKG as above) and CT Scan (Patient's CT scan of the head was grossly negative) Radiology Impression Discussion of test interpretation with radiology: I have reviewed the radiologist's reading. Radiologist Impression: I reviewed radiology's reading of the CT scan head, face, C-spine, abdomen pelvis. Possible nasal fracture noted. Small abdominal aortic aneurysm noted 3 cm at the level of the infrarenal area. Will require follow-up on an outpatient basis this was described to patient. Independent Historian Clinical information obtained from an independent historian. History obtained from or confirmed by: Other (Family) External Record Review External record reviewed: Inpatient record Patient's previous cardiology note reviewed. Positive history of nonsustained V-tach Chronic Conditions Nonsustained V-tach Social Determinants Patient?s care significantly limited by Social Determinants of Health including: Alcoholism and drug addiction in family Discharge Plan Discharge Clinical Impression: Fracture closed, nasal bone, Laceration of lip, Abdominal aortic aneurysm Patient Disposition: Home, Self-Care Instructions: Nasal Fracture (ED), Nonruptured Abdominal Aortic Aneurysm (DC), Facial Laceration (ED) Additional Instructions: Suture removal in 5 days Small aneurysm was noted in your abdominal aorta. It was approximately 3 cm in size. Follow-up advised. Prescriptions: New amoxicillin-pot clavulanate 875-125 mg tablet 1 tab PO BID Qty: 14 0RF No Action cholecalciferol (vitamin D3) 50 mcg (2,000 unit) capsule 50 mcg PO DAILY tramadol 50 mg tablet 50 mg PO TID PRN lisinopril-hydrochlorothiazide 20-12.5 mg tablet 1 tab PO DAILY atorvastatin 80 mg tablet 80 mg PO DAILY aspirin [Adult Low Dose Aspirin] 81 mg tablet,delayed release (DR/EC) 81 mg PO DAILY Jardiance 10 mg tablet 10 mg PO DAILY metformin 500 mg tablet extended release 24 hr 500 mg PO DAILY amiodarone 200 mg tablet 200 mg PO .COMPLEX Qty: 100 3RF Rx Instructions: 200 mg orally BID x 14 days then 1 tablet daily; Referrals: Name,MD Jon [Primary Care Provider] - 01/25/24 Print Language: Hebrew
[2024-01-19 21:28] LABS: Anion Gap 16 (12-20)
[2024-01-19 21:29] LABS: Alanine Aminotransferase 23 U/L (0-40); Albumin Level 3.8 g/dL (3.5-5.0); Alkaline Phosphatase 85 U/L (39-117); Aspartate Amino Transferase 26 U/L (5-37); Bilirubin Total 0.3 mg/dL (0.0-1.0); Blood Urea Nitrogen 19 mg/dL (9-16); Calcium 8.7 mg/dL (8.4-10.2); Carbon Dioxide 18 mmol/L (22-29); Chloride 103 mmol/L (96-108); Creatinine Clr Calc Pharmacy 49.9; Estimated Glomerular Filt Rate > 60; Ethanol 202 mg/dL; Glucose Random 104 mg/dL (60-115); Potassium 3.9 mmol/L (3.3-5.1); Sodium 133 mmol/L (135-145); Total Protein 7.1 g/dL (6.5-8.0)
[2024-01-19 21:33] LABS: Troponin-I High Sensitivity 3.5 ng/L (<3.5-35.0)
[2024-01-19 22:28] VITALS: BP 127/67; PULSE 66; RESP 18; TEMP 36.4; O2SAT 95
[2024-01-20 00:20] VITALS: BP 105/45; PULSE 71; RESP 18; O2SAT 95
[2024-01-20 02:25] VITALS: BP 115/50; PULSE 63; RESP 16; TEMP 36.6; O2SAT 95
[2024-01-20 03:10] VITALS: BP 121/66; PULSE 67; TEMP 36.7; O2SAT 97
[2024-01-20 03:14] VITALS: BP 115/50; PULSE 63; RESP 16; TEMP 36.6; O2SAT 95
[2024-01-20] MEDS: Amoxicillin/Potassium Clav 875 MG TABLET PO (03:16)
[2024-01-20] MEDS: Lidocaine HCl 1 % MPF 5 ML VIAL SUBCUT (03:17)
== END 2024-01-20 03:22 | disposition home or self-care (01) ==
PROVIDERS: Registered Nurse Emergency; Emergency Provider Emergency Medicine Emergency Medical Services; PCP Internal Medicine Geriatric Medicine
DX: S02.2XXA Fracture of nasal bones, initial encounter for closed fracture (principal); S01.511A Laceration without foreign body of lip, initial encounter; W19.XXXA Unspecified fall, initial encounter; I71.40 Abdominal aortic aneurysm, without rupture, unspecified; F10.920 Alcohol use, unspecified with intoxication, uncomplicated; Y90.7 Blood alcohol level of 200-239 mg/100 ml; E11.9 Type 2 diabetes mellitus without complications; I10 Essential (primary) hypertension; Z79.82 Long term (current) use of aspirin; Z79.899 Other long term (current) drug therapy; Z79.84 Long term (current) use of oral hypoglycemic drugs; Z79.02 Long term (current) use of antithrombotics/antiplatelets; Y93.9 Activity, unspecified; Y92.009 Unspecified place in unspecified non-institutional (private) residence as the place of occurrence of the external cause; Y99.9 Unspecified external cause status
CPT/HCPCS: 12011; 36415; 70450; 70486; 72125; 74176; 80053; 80307; 84484; 85025; 85610; 93005; 99284

== ENCOUNTER → 2024-01-19 20:42 | Outpatient (BNV) | payer OTHER, SELFPAY | PROVIDERS: Emergency Provider Emergency Medicine Emergency Medical Services; PCP Internal Medicine Geriatric Medicine; Visit Provider Internal Medicine Cardiovascular Disease | DX: I47.29 Other ventricular tachycardia (principal) | CPT/HCPCS: 93010 ==

== ENCOUNTER 2024-01-27 09:43 | Outpatient (AMB) | payer MEDICARE, OTHER, MEDICAID, SELFPAY ==
--- NOTE | 2024-01-27 10:24 | MHC.OFFVIS ---
Intake Visit Reasons: OV - Right Hip Pain Intake Note: Kt is a 78 year old male who presents today for a follow up of his right hip pain. He was last seen on 11/25/22 where he reported taking a fall on 11/22/23. Gerard discussed surgical vs non surgical interventions at that time, but he wished to avoid any major surgeries. Bilateral knee injections administered 11/26/23 Allergies ibuprofen [IBUPROFEN] Allergy (Severe, Verified 01/19/24 20:41) SWELLING Ibuprofen Allergy (Unknown, Uncoded 01/19/24 20:41) unknown HPI HPI OV - Right Hip Pain: Details: Kt is a 78 year old male who presents today for a follow up of his right hip pain. He was last seen on 11/25/22 where he reported taking a fall on 11/22/23. Gerard discussed surgical vs non surgical interventions at that time, but he wished to avoid any major surgeries. He describes pain with ambulation in his knee however. He states hip feels fine. The injection that he had was helpful but it was about 2 months ago and he is diabetic. Bilateral knee injections administered 11/26/23 [facility] Medical History Diabetes Hypertension Surgical History History of right hip replacement History of left knee surgery Family History Mother No problems noted. Father No problems noted. Social History Alcohol intake: current Alcohol intake frequency: holidays/special occasions only Patient Tobacco Use Status: Former Tobacco user Years Smoked: 10 +/- Current occupational status: retired Physical Exam Const General: cooperative and no acute distress Orientation/consciousness: patient oriented x3 Resp Effort & Inspection: normal respiratory effort and able to speak in complete sentences Cardio Peripheral pulses: Peripheral pulses 2+ throughout Neuro General: patient oriented x3 Extrem Other: Bilat knee skin intact, no erythema or joint effusion. Tenderness along the medial joint line. ROM full with crepitus. Negative steinmans. No ligamentous laxity. NVI. Results Reviewed Results Reviewed: I personally reviewed relevant radiographs. Right total hip arthroplasty with periprosthetic loosening over the acetabulum but stable. Assessment & Plan Assessment & Plan (1) History of right hip replacement: Comment: 1996 Dr webb Code(s): Z96.641 - Presence of right artificial hip joint Category: Surgical Plan: Right hip arthroplasty 18 years ago which is likely loosening but his pain is in his knees and he does respond to injections so I do not think this is referred pain from his hip. To soon to repeat injections however given his diabetes. I recommend he return for knee injections in 6 weeks if he wants. (2) Osteoarthritis of knees, bilateral: Code(s): M17.0 - Bilateral primary osteoarthritis of knee Category: Medical Plan: Return for injections approximately 6 weeks as needed. Coding Level of Care Code Est Pt Level 4 (97477) Diagnoses History of right hip replacement Z96.641 Osteoarthritis of knees, bilateral M17.0
== END 2024-01-27 13:31 | disposition home or self-care (01) ==
PROVIDERS: PCP Internal Medicine Geriatric Medicine; Visit Provider Orthopaedic Surgery
DX: M25.551 Pain in right hip (principal); Z96.641 Presence of right artificial hip joint; M17.0 Bilateral primary osteoarthritis of knee
CPT/HCPCS: 99213

== ENCOUNTER → 2024-01-27 09:43 | Outpatient (BNVA) | payer MEDICARE, MEDICAID, SELFPAY | PROVIDERS: PCP Internal Medicine Geriatric Medicine; Visit Provider Orthopaedic Surgery | DX: M17.0 Bilateral primary osteoarthritis of knee (principal); Z96.641 Presence of right artificial hip joint | CPT/HCPCS: 99212 ==

== ENCOUNTER 2024-03-09 09:52 | Outpatient (AMB) | payer OTHER, SELFPAY ==
--- NOTE | 2024-03-09 10:05 | A.OFFVIS_ITS ---
Intake Visit Reasons: Right knee injection per NE Intake Note: Kt is a 78 year old male who present today with a cane for a right knee injection. He is requesting bilateral knee injections. Last B/L Injections on 11/26/23 w/ TM. Blood sugar was 89 this morning pt states. Hx of DM. Allergies ibuprofen [IBUPROFEN] Allergy (Severe, Verified 03/09/24 10:11) SWELLING Ibuprofen Allergy (Unknown, Uncoded 03/09/24 10:11) unknown HPI HPI Right knee injection per NE: Details: Kt is a 78 year old male who present today with a cane for a right knee i njection. Last B/L Injections on 11/26/23 w/ TM. Blood sugar was 89 this morning pt states. Hx of DM. [facility] Medical History (Updated 03/09/24 @ 10:21 by Damaso Rain MD) Diabetes Hypertension Surgical History History of right hip replacement History of left knee surgery Family History Mother No problems noted. Father No problems noted. Social History Alcohol intake: current Alcohol intake frequency: holidays/special occasions only Patient Tobacco Use Status: Former Tobacco user Years Smoked: 10 +/- Current occupational status: retired Physical Exam Const General: cooperative and no acute distress Orientation/consciousness: patient oriented x3 Resp Effort & Inspection: normal respiratory effort and able to speak in complete sentences Cardio Peripheral pulses: Peripheral pulses 2+ throughout Neuro General: patient oriented x3 Extrem Other: Bilat knee skin intact, no erythema or joint effusion. Tenderness along the medial joint line. ROM full with crepitus. Negative steinmans. No ligamentous laxity. NVI. Office Procedures Joint Injection/Drain Joint Injection/Drain Details: Injected 1 mL of Decadron and 3 mL 1% lidocaine and 3 mL of 0.25% Marcaine. Site was prepped using aseptic technique. Patient tolerated the procedure well. Primary Site: right knee Secondary Site: left knee Approach Used: anterolateral Coding - Large joint - Glenohumeral/Tronchanteric Bursa/Intraarticular Procedure code (CPT) selection complete Assessment & Plan Assessment & Plan (1) Osteoarthritis of knees, bilateral: Code(s): M17.0 - Bilateral primary osteoarthritis of knee Category: Medical Plan: Injected bilateral knees. Warned of hyperglycemic effects of steroids. COnt act ivity as tolerated (2) Diabetes: Code(s): E11.9 - Type 2 diabetes mellitus without complications Category: Medical Plan: Warned of hyperglycemic effects of steroids Coding Level of Care Code Est Pt Level 3 (74471) Diagnoses Osteoarthritis of knees, bilateral M17.0 Diabetes E11.9 CPT Codes Coding - 18942 Large joint: 14781 - Large joint ([id number]) Coding - Joint 7: 91789 - Glenohumeral/Tronchanteric Bursa/Intraarticular ([id number])
== END 2024-03-09 10:34 | disposition home or self-care (01) ==
PROVIDERS: PCP Internal Medicine Geriatric Medicine; Visit Provider Orthopaedic Surgery
DX: M17.0 Bilateral primary osteoarthritis of knee (principal); E11.9 Type 2 diabetes mellitus without complications
CPT/HCPCS: 20610; 99213

== ENCOUNTER → 2024-03-09 09:52 | Outpatient (BNVA) | payer OTHER, MEDICAID, SELFPAY | PROVIDERS: PCP Internal Medicine Geriatric Medicine; Visit Provider Orthopaedic Surgery | DX: M17.0 Bilateral primary osteoarthritis of knee (principal); E11.9 Type 2 diabetes mellitus without complications | CPT/HCPCS: 20610; 99212; J0665; J1100 ==

== ENCOUNTER 2024-03-29 14:40 | Outpatient (AMB) | payer OTHER, SELFPAY ==
[2024-03-29 14:42] VITALS: BP 110/64; PULSE 62; BMI 27.4
--- NOTE | 2024-03-29 14:42 | MHC.OFFVIS ---
Vital Signs 03/29/24 14:42 Height 5 ft 5 in Weight 164 lb 7.437 oz BMI 27.4 BP 110/64 Blood Pressure Location Lt brachial Position Sitting Pulse 62 Pulse Source Monitor Intake Visit Reasons: Follow up per PCP, irregular heart beat Intake Note: p/up per PCP-pr is doing fine Range Conservationist Required: Yes Range Conservationist Name: daniel/daughter Accompanied by: Daughter Allergies ibuprofen [IBUPROFEN] Allergy (Severe, Verified 03/09/24 10:11) SWELLING Ibuprofen Allergy (Unknown, Uncoded 03/09/24 10:11) unknown Medication List - Last Reconciled 03/29/24 by Christopher Choi MD amiodarone 200 mg orally BID x 14 days then 1 tablet daily; aspirin (Adult Low Dose Aspirin) 81 mg PO DAILY atorvastatin 80 mg PO DAILY cholecalciferol (vitamin D3) 50 mcg PO DAILY empagliflozin (Jardiance) 10 mg PO DAILY lisinopril-hydrochlorothiazide 20-12.5 mg 1 tab PO DAILY tramadol 50 mg PO TID PRN HPI Comments Details: Pleasant 78-year-old gentleman who was referred for bradycardia. he was noticed to be bradycardic during a visit with his primary care physician.. He has no palpitations or symptoms. In particular no dizziness or syncope. He denies chest discomfort or shortness of breath. EKG in our office before showed sinus rhythm, normal axis, premature ventricular complexes, QTC of 443 milliseconds. He was sent for a Holter monitor which showed more than 26,000 PVCs in 24 hours. He had echocardiography which showed no significant issues and normal biventricular function. I sent him for exercise stress test to see the effect of exercise on his PVCs but he could not exercise due to joint issues. He had a Lexiscan instead which was normal. Echocardiography recently which is showing normal biventricular function. He has moderately dilated aorta. He is a former smoker and quit many years ago. Clinically stable and is denying any symptoms at this stage. In particular no shortness of breath, dizziness, syncope or chest discomfort. 08/02/2023: He returns for follow-up. His EKG interestingly showing nonsustained ventricular tachycardia with 5 beats. He also had another run on the start of the ECG tracing. He is denying any symptoms. Particular no chest pain or shortness of breath. No palpitations. No symptoms/signs of heart failure. 03/29/2024: He returns for follow-up. Apparently he had a mechanical fall and went to the emergency department. He had an abdominal CT scan which showed a 3 cm abdominal aortic aneurysm. He is here to discuss further management of this. He also had nonsustained VT previously on EKG and given the fact that he had frequent premature ventricular complex in the past we decided put him on amiodarone. His repeat EKG currently is not showing any further PVCs. [facility] Medical History (Updated 03/09/24 @ 10:21 by Damaso Rain MD) Diabetes Hypertension Surgical History History of right hip replacement History of left knee surgery Family History Mother No problems noted. Father No problems noted. Social History Alcohol intake: current Alcohol intake frequency: holidays/special occasions only Patient Tobacco Use Status: Former Tobacco user Years Smoked: 10 +/- Current occupational status: retired Review of Systems Const Denies chills, Denies fatigue, Denies fever(s), Denies frequent falls, Denies weakness, Denies weight gain and Denies weight loss ENT Denies dizziness Card Denies chest pain, Denies leg edema, Denies lightheadedness, Denies palpitations, Denies dyspnea and Denies dyspnea on exertion Resp Denies cough, Denies dyspnea and Denies dyspnea on exertion GI Denies hematochezia Musc Denies abnormal gait, Denies muscle weakness, Denies numbness, Denies radiating pain into limb and Denies tingling Neuro Denies abnormal gait, Denies dizziness, Denies frequent falls, Denies numbness, Denies tingling and Denies weakness Endo Denies fatigue and Denies palpitations Physical Exam Vital Signs: Last Vital Signs Pulse 62 03/29/24 14:42 BP 110/64 03/29/24 14:42 BMI result Body Mass Index 27.4 GENERAL APPEARANCE: in no acute distress, well developed, well nourished. NECK/THYROID: no carotid bruit, no jugular venous distention. SKIN: no suspicious lesions, warm and dry. HEART: no murmurs,regular rhythm, S1, S2 normal. LUNGS: clear to auscultation bilaterally. ABDOMEN: normal, bowel sounds present, soft, nontender, nondistended. EXTREMITIES: no clubbing, cyanosis, or edema. PERIPHERAL PULSES: equal. NEUROLOGIC: nonfocal, alert and oriented. PSYCH: mood/affect full range. Office Procedures EKG Details: Sinus rhythm 62 beats per minute, normal axis, QTC 468 milliseconds. 31180-Prabaxvolbfstochs, Complete Assessment & Plan Assessment & Plan (1) Asymptomatic PVCs: Code(s): I49.3 - Ventricular premature depolarization Category: Medical (2) NSVT (nonsustained ventricular tachycardia): Code(s): I47.29 - Other ventricular tachycardia Category: Medical (3) Abdominal aortic aneurysm: Code(s): I71.40 - Abdominal aortic aneurysm, without rupture, unspecified Category: Medical Plan Pleasant 78 year gentleman who is here for follow-up. He is known to us for premature ventricular complexes. He was completely asymptomatic. Last visit he had nonsustained VT on his EKG. We decided to put him on amiodarone and he has been taking 200 mg daily. His EKGs showing no further premature ventricular complexes. Unfortunately had a mechanical fall him into the emergency department where CT scan of the abdomen was done which showed 3 cm abdominal aortic aneurysm. I have explained with the patient and the daughter that this is small in size currently. Unless the aneurysm reaches 5.5 cm or larger there is no indication to do any interventions. This needs surveillance and we will do a repeat ultrasound of his abdomen in 2 years. If there is growth close to 5.5 cm larger than we will repeat CT scan. Thank you for allowing me to participate in the care of your patient. Please feel free to contact me if you have any questions. Medications: Changed From amiodarone 200 mg orally BID x 14 days then 1 tablet daily; 100 tabs 3RF I47.29 - Other ventricular tachycardia To amiodarone 200 mg PO DAILY 100 tabs 3RF I47.29 - Other ventricular tachycardia Coding Level of Care Code Est Pt Level 4 (65839) Diagnoses Asymptomatic PVCs I49.3 NSVT (nonsustained ventricular tachycardia) I47.29 Abdominal aortic aneurysm I71.40 CPT Codes EKG - CPT: 45581-[id number], Complete ([id number])
== END 2024-03-29 15:26 | disposition home or self-care (01) ==
PROVIDERS: PCP Internal Medicine Geriatric Medicine; Visit Provider Internal Medicine Cardiovascular Disease
DX: I49.3 Ventricular premature depolarization (principal); I47.29 Other ventricular tachycardia; I71.40 Abdominal aortic aneurysm, without rupture, unspecified
CPT/HCPCS: 93010; 99214

== ENCOUNTER → 2024-03-29 14:40 | Outpatient (BNVA) | payer MEDICARE, MEDICAID, SELFPAY | PROVIDERS: PCP Internal Medicine Geriatric Medicine; Visit Provider Internal Medicine Cardiovascular Disease | DX: I49.3 Ventricular premature depolarization (principal); I47.29 Other ventricular tachycardia; I71.40 Abdominal aortic aneurysm, without rupture, unspecified | CPT/HCPCS: 93005; 99212 ==

== ENCOUNTER 2024-05-01 09:19 | Outpatient (REF) | payer OTHER, SELFPAY ==
--- NOTE | ~2024-05-01 | XR_ITS ---
EXAMINATION: XR LUMBAR SPINE CLINICAL INFORMATION: Radicular pain right lower extremity for 2 months. Patient stated he had surgery of right hip. Patient had difficulty holding position therefore best possible image attempts made for technologist. TECHNIQUE: 5 views of the lumbar spine. COMPARISON: CT abdomen and pelvis 01/19/2024. FINDINGS: Right total hip prosthesis partially imaged. Facet arthritis in the [id number] lumbar spine. 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 Moderate spondylosis in the remainder of the spine. Please note; incidental note on limited views of the right hip of dislocation of right femoral head and abnormal appearance of acetabular components for which dedicated imaging with CT scan is recommended. XR/XR lumbar spine 4V min IMPRESSION: 1. 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 2. Moderate spondylosis in the remainder of the spine. 3. Please note that incidental note on limited views of the right hip of dislocation of right femoral head and abnormal appearance of acetabular components for which dedicated imaging of the head with CT scan is recommended. This study was presented today June 21, 2024 for interpretation. Stat results provided at this time as requested by referring provider. This study was presented to me on June 21, 2024 for interpretation. [facility] staff will provide STAT results to referring provider at this time. Electronically signed by: Haydee Sow MD 06/21/2024 11:45 AM [facility]
== END 2024-05-01 09:20 | disposition home or self-care (01) ==
LOC: HO.HHCX 09:19
PROVIDERS: Visit Provider Internal Medicine Geriatric Medicine
DX: M54.10 Radiculopathy, site unspecified (principal)
CPT/HCPCS: 72110

== ENCOUNTER 2024-05-11 10:09 | Outpatient (AMB) | payer OTHER, SELFPAY ==
--- NOTE | 2024-05-11 10:15 | MHC.OFFVIS ---
Vital Signs 05/11/24 10:57 Height 5 ft 5 in Weight 163 lb 6 oz BMI 27.2 BP 156/74 H Blood Pressure Location Lt brachial Position Sitting Respiration 16 Pulse 63 Pulse Source Pulse Oximeter Pulse Oximetry (%) 98 Oxygen Delivery Method Room Air Intake Visit Reasons: Radicular pain of right lower extremity Intake Note: Patient comes in for initial visit was referred by [facility] primary care. Reports pain 05/25. Slackman Required: Yes Allergies ibuprofen [IBUPROFEN] Allergy (Severe, Verified 05/11/24 10:58) SWELLING Ibuprofen Allergy (Unknown, Uncoded 03/09/24 10:11) unknown HPI Comments Details: Kt is very pleasant 78 years old gentleman who presents in my office with complains on pain in the right knee with radiation on the lateral side of the hip up from the knee. He reports that most of the pain he feels in the knee. He reports that the pain started to bother him 1 year ago on the side of his thigh when he assumed uncomfortable position for some cardiology study. He reports that in the past Dr. Rain performed the injections on him. He is unable to sleep normally can not do activities of daily living can not take care of himself can not function normally. He is on permanent disability and he is 78 years old. Cold application in the winter may the pain in the knee worse however in the summer helps the pain in the knee. The pain is constant in nature. Because of his old age he was denied surgery to be performed on his right knee. In terms of tissue damage he reports his pain is punching cramping crushing, reading, radiating, piercing, tight, squeezing, tearing. He reports that he takes tramadol for his pain but it does not help his pain. His and constant physical therapy physical therapist comes to his house and performs 3 times a week the exercises and he repeats those exercises every day as much as he can. His past medical history significant for hypertension and diabetes. He is past surgical history is unknown. He denies smoking cigarettes admits drinking 4 beers once a month he denies drinking soda but drinks coffee once a day and he denies recreational drugs. [facility] Medical History (Updated 05/11/24 @ 10:47 by Young Masters MD) Diabetes Hypertension Surgical History History of right hip replacement History of left knee surgery Family History Mother No problems noted. Father No problems noted. Social History Alcohol intake: current Alcohol intake frequency: holidays/special occasions only Patient Tobacco Use Status: Former Tobacco user Years Smoked: 10 +/- Current occupational status: retired Review of Systems Const All systems reviewed & are unremarkable except as noted in HPI and below ENT Reports Normal hearing present Neuro Reports Normal hearing present, Denies Abnormal speech present and Denies Sensory deficit (Neuro) Physical Exam Vital Signs: Last Vital Signs Pulse 63 05/11/24 10:57 Resp 16 05/11/24 10:57 BP 156/74 H 05/11/24 10:57 Pulse Ox 98 05/11/24 10:57 Oxygen Delivery Method Room Air 05/11/24 10:57 BMI result Body Mass Index 27.2 Const General: no acute distress Orientation/consciousness: patient oriented x3 Eyes General: appearance normal, both eyes and all related structures Pupils: Equal, round and reactive pupils present EOM: EOMs intact bilaterally Neck Neck: Yes full ROM Chest Chest palpation & inspection: normal inspection of the chest Resp Effort & Inspection: normal respiratory effort, able to speak in complete sentences, normal respiratory pattern, no audible wheezes and no cough Cardio Jugular venous distension: no JVD GI Inspection: Yes normal to inspection Neuro General: patient oriented x3 and gait normal Cranial nerves: Yes CN's II-XII intact bilaterally, Yes Equal, round and reactive pupils present, Yes Normal hearing present and Yes Ability to bilaterally elevate shoulders present Speech: No Abnormal speech present Gait exam (Neuro): Normal gait present Motor exam (neuro): 5/5 motor strength present throughout Sensory Exam: No Sensory deficit (Neuro) Extrem Other: Right knee skin intact, no erythema or joint effusion. Tenderness along the lateral joint line. ROM full with abundant crepitus. Stainman test demonstrates no meniscal problem No ligamentous laxity. NVI General: No pedal edema Psych Speech and movement: Normal speech and movement present Affect: normal affect Attitude: cooperative Thought process: Normal thought process present Thought content: Normal thought content present Insight: Good insight present (Psych) Judgement: Good judgement present (Psych) Results Reviewed Results Reviewed: Right knee x-ray 2021 FINDINGS: No significant joint effusion. Minimal spurring of the medial patella. The patellofemoral joint space is maintained. No distinct fracture or dislocation. Assessment & Plan Assessment & Plan (1) Osteoarthritis of knees, bilateral: Code(s): M17.0 - Bilateral primary osteoarthritis of knee Category: Medical (2) Right knee pain: Code(s): M25.561 - Pain in right knee Category: Medical (3) Chronic pain syndrome: Code(s): G89.4 - Chronic pain syndrome Category: Medical Plan Somehow patient believes that Dr. Rain does not operate on his knee because of some sort of a condition which existing his hip. He had total hip replacement recently performed. However in Dr. Rain's note it states that patient was offered operative and non operative options and patient expressed desire to avoid any major surgeries. I offered today patient to perform right knee genicular nerve block diagnostic which possibly will help us to diagnose his pain and open the avenue for radiofrequency ablation versus peripheral nerve stimulation on the right. I will see this patient for the injection about 2 that I will examine the results of the injection. Coding Level of Care Code New Pt Level 3 (55451) Diagnoses Osteoarthritis of knees, bilateral M17.0 Right knee pain M25.561 Chronic pain syndrome G89.4
[2024-05-11 10:57] VITALS: BP 156/74; PULSE 63; RESP 16; O2SAT 98; BMI 27.2
== END 2024-05-11 10:44 | disposition home or self-care (01) ==
PROVIDERS: PCP Internal Medicine Geriatric Medicine; Visit Provider Anesthesiology
DX: M17.0 Bilateral primary osteoarthritis of knee (principal); M25.561 Pain in right knee; G89.4 Chronic pain syndrome
CPT/HCPCS: 99203

== ENCOUNTER → 2024-05-11 10:09 | Outpatient (BNVA) | payer OTHER, SELFPAY | PROVIDERS: PCP Internal Medicine Geriatric Medicine; Visit Provider Anesthesiology | DX: M17.0 Bilateral primary osteoarthritis of knee (principal); G89.4 Chronic pain syndrome; Z79.891 Long term (current) use of opiate analgesic | CPT/HCPCS: 99202 ==

== ENCOUNTER 2024-07-11 06:06 | Outpatient (REF) | payer OTHER, SELFPAY | END 2024-07-11 06:07 | disposition home or self-care (01) | LOC: CF 06:06 | PROVIDERS: Visit Provider Anesthesiology | DX: M17.0 Bilateral primary osteoarthritis of knee (principal); G89.4 Chronic pain syndrome | CPT/HCPCS: 64454; J2003; J2795; Q9967 ==

== ENCOUNTER 2024-07-11 08:23 | Outpatient (AMB) | payer OTHER, SELFPAY ==
--- NOTE | 2024-07-11 10:04 | MHC.OFFVIS ---
Vital Signs 07/11/24 11:16 07/11/24 11:16 Height 5 ft 5 in 5 ft 5 in Weight 163 lb 163 lb BMI 27.1 27.1 BP 129/62 136/70 Blood Pressure Location Lt brachial Rt brachial Position Sitting Sitting Respiration 17 17 Pulse 60 60 Pulse Source Pulse Oximeter Pulse Oximeter Pulse Oximetry (%) 99 98 Oxygen Delivery Method Room Air Room Air Comment pre-op post-op Intake Visit Reasons: RIGHT KNEE GENICULAR NERVE BLOCK Allergies ibuprofen [IBUPROFEN] Allergy (Severe, Verified 07/11/24 11:18) SWELLING Ibuprofen Allergy (Unknown, Uncoded 03/09/24 10:11) unknown [facility] Medical History (Updated 05/11/24 @ 10:47 by Young Masters MD) Diabetes Hypertension Surgical History History of right hip replacement History of left knee surgery Family History Mother No problems noted. Father No problems noted. Social History Alcohol intake: current Alcohol intake frequency: holidays/special occasions only Patient Tobacco Use Status: Former Tobacco user Years Smoked: 10 +/- Current occupational status: retired Physical Exam Vital Signs: Last Vital Signs Pulse 60 07/11/24 11:16 Resp 17 07/11/24 11:16 BP 136/70 07/11/24 11:16 Pulse Ox 98 07/11/24 11:16 Oxygen Delivery Method Room Air 07/11/24 11:16 BMI result Body Mass Index 27.1 Assessment & Plan Assessment & Plan (1) Osteoarthritis of knees, bilateral: Code(s): M17.0 - Bilateral primary osteoarthritis of knee Category: Medical (2) Right knee pain: Code(s): M25.561 - Pain in right knee Category: Medical (3) Chronic pain syndrome: Code(s): G89.4 - Chronic pain syndrome Category: Medical Plan: Diagnostic genicular nerve block On the right ? ?Informed consent was explained to the patient. All questions were explained and? answered.? The patient was taken inside the operating room where he was positioned supine on the operating table with a gel roll under the right lower extremity.. Time-out was performed delineating correct site, side, the nature of the procedure, patient's allergy, . All operating room staff was participating in OR time-out procedure. ? ? The The right anterior knee area was prepped with ChloraPrep and draped with sterile towels.? C-arm was brought over the operating field and image of the right knee joint was delineated on the screen.? Point of interest were delineated as confluence of femoral bone methaphysis bone silhouette on the medial side and lateral side with the epiphysis bilaterally as well as silhouette of metaphysis of the right tibial bone on the medial side with its epiphysis. The projection of the point of interest to the skin were injected with the small amount of local anesthetic lidocaine 2% mixed with ropivacaine 0.5% 1-1 approcimately 1 cc.? After that Three 22 gauge 3.5 inch spinal needle were driven sequentially to the points of interest in tunnel vision fashion. After needles gently contacted the bone the C-arm position was changed into the lateral view. Care was taken to superimposed bilateral condyles. With bilateral condyle superimposed the needles were adjusted to be positioned at the mid shaft of the both femoral bone and tibial bone. After proper position of the needles were established injection of the ropivacaine 0.5% 1 cc at each site of the insertion was performed. Upon completion of the injection the needles were removed and sterile Band-Aids were applied. The patient tolerated procedure well. He was taken outside of the operating room to recovery room where he recovered uneventfully.? Plan Somehow patient believes that Dr. Rain does not operate on his knee because of some sort of a condition which existing his hip. He had total hip replacement recently performed. However in Dr. Rain's note it states that patient was offered operative and non operative options and patient expressed desire to avoid any major surgeries. I offered today patient to perform right knee genicular nerve block diagnostic which possibly will help us to diagnose his pain and open the avenue for radiofrequency ablation versus peripheral nerve stimulation on the right. I will see this patient for the injection about 2 that I will examine the results of the injection. Orders: Orders FL guidance in treatment room Today M25.561 - Pain in right knee Coding Level of Care Code Procedure Only Diagnoses Osteoarthritis of knees, bilateral M17.0 Right knee pain M25.561 Chronic pain syndrome G89.4
[2024-07-11 11:16] VITALS: BP 129/62; BP 136/70; PULSE 60; RESP 17; O2SAT 98; O2SAT 99; BMI 27.1
== END 2024-07-11 09:45 | disposition home or self-care (01) ==
LOC: HO.PMCPRC 08:23
PROVIDERS: PCP Internal Medicine Geriatric Medicine; Visit Provider Anesthesiology
DX: M25.561 Pain in right knee (principal); M17.0 Bilateral primary osteoarthritis of knee; G89.4 Chronic pain syndrome
CPT/HCPCS: 64454

== ENCOUNTER 2025-01-16 09:20 | Outpatient (REF) | payer MEDICARE, SELFPAY ==
--- OUTSIDE RECORDS SUMMARY | 2025-01-16 10:18 | XMS_ITS | Encounter Summary ---
Author Organization [employer] Address [address] [facility] [address] [place] [address] Care Team Providers Care Phlebotomist Associate Name Role Phone Name, Jon RUIZ Primary Care Provider Wendy Sage PharmD Unavailable [phone] Reason for Visit * Reason Comments Med Refill Encounter Details Date Type Department Care Team ([facility] st Contact Info) Description 04/25/2024 Refill [facility] CH[facility] MED & PEDS [address] [place], [place] [id number] Name, MD Jon [address] [place] [address] Social History Tobacco Use Types Packs/Day Years Used Date Smoking Tobacco: Never Smokeless Tobacco: Never Alcohol Use Standard Drinks/Week Comments Yes 0 (1 standard drink = 0.6 oz pur e alcohol) occassional Alcohol Answer Date Recorded Frequency of Alcohol Consumption Not on file 01/25/2024 Average Number of Drinks Not on file 024 Frequency of Binge Drinking Not on file 01/14 Score 1 01/25/2024 Depression Answer Date Recorded Patient Health Questionnaire-9 Score 0 12/30/2023 Patient Health Questionnaire-9 Score 0 12/30/2023 Last PHQ-9: Questionnaire Data Not on file 0 12/30/2023 Housing Stability Answer Date Recorded What is your housing situation today? I have michael flores 12/30/[address] you li ve. Do you have problems with any of the following? None of the above 12/30/2023 Food Insecurity Answer Date Recorded Within the past 12 months, y ou worried that your food would run out before you got money to buy more: Never True 12/30/2023 Within the past 12 months,th e food you bought just didn't last and you didn't have enough money to get more: Never True Transportation Answer Date Recorded In the past 12 months, has l ack of transportation kept you from medical appts, meetings, work or from getting things needed for daily living? No 12/30/2023 Utilities Answer Date Recorded In the past 12 months, has t he electric, gas, oil or water company threatened to shut off services in your home? No 12/30/2023 Depression Answer Date Recorded Patient Health Questionnaire-2 Score 0 12/30/2023 Sex and Gender Information Value Date Recorded Sex Assigned at Male 06/15/2022 10:14 AM EDT Legal Sex Male 10:14 AM EDT Gender Identity Male 06/15/2022 10:14 AM EDT Sexual Orientation Straight 06/15/2022 10 :14 AM EDT documented as of this encounter Plan of Treatment Upcoming Encounters Date Type Department Care Team (Late st Contact Info) Description 01/23/2025 11:00 AM EDT Medication Management [address] [address] Wendy Sage, PharmD [address] [place] [id number] 03/02/2025 10:00 AM EDT Telemedicine [address] [address] Mariama Vega RN 03/07/2025 11:15 AM EDT Office Visit [address] [address] Name, MD Jon [address] [place] [address] documented as of this encounter Goals Goal Patient Goal Type Associated Problems Recent Progress Patient-Stated? Author Hemoglobin A1c < 7.5 Result Component 7.4( 12:13 PM EST) No Wendy Sage, PharmD Record your blood sugar as directed Result Component No Wendy Sage PharmD Note: Alternating fasting & 2-hr postprandial. documented as of this encounter Visit Diagnoses Not on filedocumented in this encounter Additional Health Concerns Assessment Noted Time PHQ-9 Depression Total Score: 0 12/30/19 24 9:13 AM EDT documented as of this encounter Care Teams Phlebotomist Associate Relationship Specialty Start Date End Date Name, MD Jon [address] [place] [address] PCP - General Family Medicine 12/15/21 Wendy Sage PharmD [address] [place] [address] Pharmacist Internal Medicine 03/31/22 documented as of this encounter
[2025-01-16 12:21] LABS: Alanine Aminotransferase 17 U/L (0-40); Albumin Level 4.2 g/dL (3.5-5.0); Alkaline Phosphatase 147 U/L (39-117); Anion Gap 12 (12-20); Aspartate Amino Transferase 23 U/L (5-37); Bilirubin Direct 0.2 mg/dL (0.0-0.5); Bilirubin Total 0.4 mg/dL (0.0-1.0); Blood Urea Nitrogen 22 mg/dL (9-16); Calcium 9.4 mg/dL (8.4-10.2); Carbon Dioxide 27 mmol/L (22-29); Chloride 103 mmol/L (96-108); Cholesterol 118 mg/dL (<200); Estimated Glomerular Filt Rate 52; Glucose Random 128 mg/dL (60-115); HDL Cholesterol 39 mg/dL (>40); LDL Cholesterol Calculated 66 mg/dL (<100); Potassium 4.2 mmol/L (3.3-5.1); Sodium 138 mmol/L (135-145); Total Protein 7.9 g/dL (6.5-8.0); Triglycerides 67 mg/dL (<150)
[2025-01-16 12:28] LABS: Creatinine Urine 47.01 mg/dL; Microalbum/Creatinine Ratio Ur 129.7 ug/mg cr (<30)
== END 2025-01-16 09:21 | disposition home or self-care (01) ==
LOC: HO.HHCL 09:20
PROVIDERS: Visit Provider Internal Medicine Geriatric Medicine
DX: E11.21 Type 2 diabetes mellitus with diabetic nephropathy (principal); I12.9 Hypertensive chronic kidney disease with stage 1 through stage 4 chronic kidney disease, or unspecified chronic kidney disease; N18.31 Chronic kidney disease, stage 3a; Z79.899 Other long term (current) drug therapy
CPT/HCPCS: 36415; 80048; 80061; 80076; 82043; 82570

== ENCOUNTER 2025-04-04 10:30 | Outpatient (AMB) | payer OTHER, SELFPAY ==
--- NOTE | 2025-04-04 10:40 | MHC.OFFVIS ---
Vital Signs 04/04/25 10:43 Height 5 ft 5 in Weight 183 lb 13.848 oz BMI 30.6 BP 120/60 Blood Pressure Location Lt brachial Position Sitting Pulse 63 Pulse Source Monitor Intake Visit Reasons: 1 yr follow up Intake Note: 1 yr f/up Network Control Operator Required: Yes Network Control Operator Name: [email or web address] Accompanied by: Self / Same As Patient Allergies ibuprofen (IBUPROFEN) Allergy (Severe, Verified 07/11/24 11:18) SWELLING Ibuprofen Allergy (Unknown, Uncoded 03/09/24 10:11) unknown Medication List - Last Reconciled 04/04/25 by Christopher Choi MD amiodarone 200 mg PO DAILY aspirin (Adult Low Dose Aspirin) 81 mg PO DAILY atorvastatin 80 mg PO DAILY cholecalciferol (vitamin D3) 50 mcg PO DAILY empagliflozin (Jardiance) 10 mg PO DAILY lisinopril-hydrochlorothiazide 20-12.5 mg 1 tab PO DAILY tramadol 50 mg PO TID PRN HPI Comments Details: Pleasant 79-year-old gentleman who was referred for bradycardia. he was noticed to be bradycardic during a visit with his primary care physician.. He has no palpitations or symptoms. In particular no dizziness or syncope. He denies chest discomfort or shortness of breath. EKG in our office before showed sinus rhythm, normal axis, premature ventricular complexes, QTC of 443 milliseconds. He was sent for a Holter monitor which showed more than 26,000 PVCs in 24 hours. He had echocardiography which showed no significant issues and normal biventricular function. I sent him for exercise stress test to see the effect of exercise on his PVCs but he could not exercise due to joint issues. He had a Lexiscan instead which was normal. Echocardiography recently which is showing normal biventricular function. He has moderately dilated aorta. He is a former smoker and quit many years ago. Clinically stable and is denying any symptoms at this stage. In particular no shortness of breath, dizziness, syncope or chest discomfort. 08/02/2023: He returns for follow-up. His EKG interestingly showing nonsustained ventricular tachycardia with 5 beats. He also had another run on the start of the ECG tracing. He is denying any symptoms. Particular no chest pain or shortness of breath. No palpitations. No symptoms/signs of heart failure. 03/29/2024: He returns for follow-up. Apparently he had a mechanical fall and went to the emergency department. He had an abdominal CT scan which showed a 3 cm abdominal aortic aneurysm. He is here to discuss further management of this. He also had nonsustained VT previously on EKG and given the fact that he had frequent premature ventricular complex in the past we decided put him on amiodarone. His repeat EKG currently is not showing any further PVCs. 04/04/2025: He is here for follow-up after a year. He has been doing well. No symptoms to report. Taking amiodarone regularly. [facility] Medical History (Updated 04/04/25 @ 11:02 by Christopher Choi MD) Diabetes Hypertension Surgical History History of right hip replacement History of left knee surgery Family History Mother No problems noted. Father No problems noted. Social History Alcohol intake: current Alcohol intake frequency: holidays/special occasions only Patient Tobacco Use Status: Former Tobacco user Years Smoked: 10 +/- Current occupational status: retired Review of Systems Const Denies chills, Denies fatigue, Denies fever(s), Denies frequent falls, Denies weakness, Denies weight gain and Denies weight loss ENT Denies dizziness Card Denies chest pain, Denies leg edema, Denies lightheadedness, Denies palpitations, Denies dyspnea and Denies dyspnea on exertion Resp Denies cough, Denies dyspnea and Denies dyspnea on exertion GI Denies hematochezia Musc Denies abnormal gait, Denies muscle weakness, Denies numbness, Denies radiating pain into limb and Denies tingling Neuro Denies abnormal gait, Denies dizziness, Denies frequent falls, Denies numbness, Denies tingling and Denies weakness Endo Denies fatigue and Denies palpitations Physical Exam Vital Signs: Last Vital Signs Pulse 63 04/04/25 10:43 BP 120/60 04/04/25 10:43 BMI result Body Mass Index 30.6 GENERAL APPEARANCE: in no acute distress, well developed, well nourished. NECK/THYROID: no carotid bruit, no jugular venous distention. SKIN: no suspicious lesions, warm and dry. HEART: no murmurs,regular rhythm, S1, S2 normal. LUNGS: clear to auscultation bilaterally. ABDOMEN: normal, bowel sounds present, soft, nontender, nondistended. EXTREMITIES: no clubbing, cyanosis, or edema. PERIPHERAL PULSES: equal. NEUROLOGIC: nonfocal, alert and oriented. PSYCH: mood/affect full range. Office Procedures EKG Details: Sinus rhythm 63 beats per minute, normal axis, otherwise normal ECG, QTC 468 milliseconds. [id number], Complete Assessment & Plan Assessment & Plan (1) Therapeutic drug monitoring: Code(s): Z51.81 - Encounter for therapeutic drug level monitoring Category: Medical (2) Asymptomatic PVCs: Code(s): I49.3 - Ventricular premature depolarization Category: Medical (3) NSVT (nonsustained ventricular tachycardia): Code(s): I47.29 - Other ventricular tachycardia Category: Medical Plan 79-year-old gentleman who is here for follow-up. He he has background history of asymptomatic PVCs. He had nonsustained VT on 1 of his EKGs. He was started on amiodarone and since then he has been quite stable. Continue same medications for now. Blood pressure well controlled. He is on amiodarone and we will monitor his TSH, LFTs and we will also arrange PFTs for him. He will follow up with us in 6 months. Thank you for allowing me to participate in the care of your patient. Please feel free to contact me if you have any questions. Orders: Orders TSH reflex Free T4 Today Z51.81 - Encounter for therapeutic drug level monitoring PFT pulmonary function test Today Z51.81 - Encounter for therapeutic drug level monitoring Liver Panel Today Z51.81 - Encounter for therapeutic drug level monitoring Coding Level of Care Code Est Pt Level 3 (77682) Diagnoses Therapeutic drug monitoring Z51.81 Asymptomatic PVCs I49.3 NSVT (nonsustained ventricular tachycardia) I47.29 CPT Codes EKG - CPT: 76292-[id number], Complete ([id number])
[2025-04-04 10:43] VITALS: BP 120/60; PULSE 63; BMI 30.6
--- OUTSIDE RECORDS SUMMARY | 2025-04-04 11:47 | XMS_ITS | Encounter Summary ---
Author Organization [employer] Address [address] [facility] [address] [place] [address] Care Team Providers Care Director Of Mobile Marketing Name Role Phone Name, Jon RUIZ Primary Care Provider [phone] Wendy Sage PharmD Unavailable [phone] Reason for Visit * Reason Comments Med Refill Encounter Details Date Type Department Care Team ([facility] st Contact Info) Description 04/25/2024 Refill [facility] CHC MED & PEDS [address] [place], [place] [phone] Name, MD Jon [address] [place] [address] Social History Tobacco Use Types Packs/Day Years [...] Care Team (Late st Contact Info) Description 04/12/2025 11:00 AM EDT Medication Management [address] [address] Puia, Wendy, PharmD [address] [place] [address] 05/04/2025 9:30 AM EDT Telemedicine [address] [address] Mariama Veag RN documented as of this encounter Goals Goal Patient Goal Type Associated Problems Recent Progress Patient-Stated? Author Hemoglobin A1c < 7.5 Result Component 7.7( 11:51 AM EDT) No Puia, Wendy, PharmD Record your blood sugar as directed Result Component No Puia, Wendy, PharmD Note: Alternating fasting & 2-hr postprandial. documented as of this encounter Visit Diagnoses Not on filedocumented in this encounter Additional Health Concerns Assessment Noted Time PHQ-9 Depression Total Score: 0 12/30/19 24 9:13 AM EDT documented as of this encounter Care Teams Director Of Mobile Marketing Relationship Specialty Start Date End Date Name, MD Jon [address] [place] [address] PCP - General Family Medicine 12/15/21 Wendy Sage, Nathan [address] [place] [address] Pharmacist Internal Medicine 03/31/22 documented as of this encounter
--- OUTSIDE RECORDS SUMMARY | 2025-04-04 11:47 | XMS_ITS | Encounter Summary ---
Author Organization [facility], Address [address] [place] [address] Phone Care Team Providers Care Floor Care Specialist Name Role Phone Name, Jon RUIZ Primary Care Provider [phone] Encounter Details Date Type Department Care Team ([facility] Contact Info) Description 05/10/2023 Documentation Only [facility] [address] [place] [address] Kevyn Nevarez MD [address] [place] [address] [place] [address] Social History Tobacco Use Types Packs/Day Years Used Date Smoking Tobacco: Former Cigarettes Q uit: 02/29/1980 Smokeless Tobacco: Former Quit: 02/29/1980 Comments:Smoking History Inf o:Every day Alcohol Use Standard Drinks/Week Comments Yes 0 (1 standard drink = 0.6 oz pure alcohol) Alcoholic Drinks/day: Occasional social drink Sex and Gender Information Value Date Recorded Sex Assigned at Not on file Legal Sex Male 4:37 PM EST Gender Identity Not on file Sexual Orientation Not on file documented as of this encounter Plan of Treatment Upcoming Encounters Date Type Department Care Team (Late Contact Info) Description 06/19/2025 2:30 PM EST Office Visit [facility] [address] [place] [address] Kevyn Nevarez MD [address] [place] [address] [place] [address] documented as of this encounter Visit Diagnoses Not on filedocumented in this encounter Care Teams Floor Care Specialist Relationship Specialty Start Date End Date Name, MD Jon [address] [place] [id number] PCP - General Internal Medicine 04/09/22 documented as of this encounter
== END 2025-04-04 11:06 | disposition home or self-care (01) ==
LOC: HO.HCS 10:31
PROVIDERS: PCP Internal Medicine Geriatric Medicine; Visit Provider Internal Medicine Cardiovascular Disease
DX: Z51.81 Encounter for therapeutic drug level monitoring (principal); I49.3 Ventricular premature depolarization; I47.29 Other ventricular tachycardia
CPT/HCPCS: 93010; 99213

== ENCOUNTER → 2025-04-04 10:30 | Outpatient (BNVA) | payer OTHER, SELFPAY | PROVIDERS: PCP Internal Medicine Geriatric Medicine; Visit Provider Internal Medicine Cardiovascular Disease | DX: I49.3 Ventricular premature depolarization (principal); I47.29 Other ventricular tachycardia; I10 Essential (primary) hypertension; Z51.81 Encounter for therapeutic drug level monitoring | CPT/HCPCS: 93005; 99212 ==

== ENCOUNTER 2025-04-19 10:02 | Outpatient (AMB) | payer OTHER, SELFPAY ==
--- NOTE | 2025-04-19 10:22 | A.OFFVIS_ITS ---
Vital Signs 04/19/25 10:23 Height 5 ft 5 in Weight 182 lb BMI 30.3 Blood Pressure Location Lt brachial Position Sitting Respiration 18 Pulse 65 Pulse Source Pulse Oximeter Pulse Oximetry (%) 97 Oxygen Delivery Method Room Air Intake Visit Reasons: Follow Up/Discuss Knee Injection Team Supervisor Required: No Allergies ibuprofen (IBUPROFEN) Allergy (Severe, Verified 04/19/25 10:24) SWELLING Ibuprofen Allergy (Unknown, Uncoded 03/09/24 10:11) unknown HPI Comments Details: Kt is back in my office after 6 months of absence. He complains on the pain in the right knee. He received diagnostic genicular nerve block to treat the pain in the right knee. However unfortunately patient was lost for the follow-up after the procedure. He did not complete pain diary after the procedure. Therefore it is hard to make an assessment 6 months after the procedure, I would need to schedule him for repeat diagnostic right genicular nerve block. He also reports on pain in the right hip. X-ray of the right hip is as below. There is a lucency around the prosthesis of the right hip therefore at this patient's age with advanced heart problem it would be difficult to fix the right hip. Therefore I offered the patient spinal cord stimulator or dorsal root ganglion stimulator to help the pain in the right hip area. Patient was given brochure about psychological evaluation. As soon as he will complete psychological evaluation we can schedule him for a trial of dorsal root ganglion stimulation. very pleasant 78 years old gentleman who presents in my office with complains on pain in the right knee with radiation on the lateral side of the hip up from the knee. He reports that most of the pain he feels in the knee. He reports that the pain started to bother him 1 year ago on the side of his thigh when he assumed uncomfortable position for some cardiology study. He reports that in the past Dr. Rain performed the injections on him. He is unable to sleep normally can not do activities of daily living can not take care of himself can not function normally. He is on permanent disability and he is 78 years old. Cold application in the winter may the pain in the knee worse however in the summer helps the pain in the knee. He reports that he takes tramadol for his pain but it does not help his pain. His and constant physical therapy physical therapist comes to his house and performs 3 times a week the exercises and he repeats those exercises every day as much as he can. REPLACED BY [facility] Medical History (Updated 04/19/25 @ 12:51 by Young Masters MD) Diabetes Hypertension Surgical History History of right hip replacement History of left knee surgery Family History Mother No problems noted. Father No problems noted. Social History Alcohol intake: current Alcohol intake frequency: holidays/special occasions only Patient Tobacco Use Status: Former Tobacco user Years Smoked: 10 +/- Current occupational status: retired Review of Systems Const All systems reviewed & are unremarkable except as noted in HPI and below ENT Reports Normal hearing present Neuro Reports Normal hearing present, Denies Abnormal speech present and Denies Sensory deficit (Neuro) Physical Exam Vital Signs: Last Vital Signs Pulse 65 04/19/25 10:23 Resp 18 04/19/25 10:23 Pulse Ox 97 04/19/25 10:23 Oxygen Delivery Method Room Air 04/19/25 10:23 BMI result Body Mass Index 30.3 Const General: no acute distress Orientation/consciousness: patient oriented x3 Eyes General: appearance normal, both eyes and all related structures Pupils: Equal, round and reactive pupils present EOM: EOMs intact bilaterally Neck Neck: Yes full ROM Chest Chest palpation & inspection: normal inspection of the chest Resp Effort & Inspection: normal respiratory effort, able to speak in complete sentences, normal respiratory pattern, no audible wheezes and no cough Cardio Jugular venous distension: no JVD GI Inspection: Yes normal to inspection Neuro General: patient oriented x3 and gait normal Cranial nerves: Yes CN's II-XII intact bilaterally, Yes Equal, round and reactive pupils present, Yes Normal hearing present and Yes Ability to bilaterally elevate shoulders present Speech: No Abnormal speech present Gait exam (Neuro): Normal gait present Motor exam (neuro): 5/5 motor strength present throughout Sensory Exam: No Sensory deficit (Neuro) Extrem Other: Right knee skin intact, no erythema or joint effusion. Tenderness along the lateral joint line. ROM full with abundant crepitus. Stainman test demonstrates no meniscal problem No ligamentous laxity. NVI General: No pedal edema Psych Speech and movement: Normal speech and movement present Affect: normal affect Attitude: cooperative Thought process: Normal thought process present Thought content: Normal thought content present Insight: Good insight present (Psych) Judgement: Good judgement present (Psych) Results Reviewed Results Reviewed: EXAMINATION: XR HIP, RIGHT FINDINGS: Postsurgical change consistent with total hip arthroplasty. No hardware fracture or dislocation. No evidence of asymmetric wear. Lucency adjacent to the acetabular component which could indicate hardware loosening in the appropriate clinical setting. Correlation with surgical history is recommended. No acute osseous fracture. Chondrocalcinosis throughout the right hip joint space. Adjacent dystrophic ossifications. Mild left hip osteoarthritis. No pelvic fracture. Degenerative disc disease within the lower lumbar spine. Assessment & Plan Assessment & Plan (1) Osteoarthritis of knees, bilateral: Code(s): M17.0 - Bilateral primary osteoarthritis of knee Category: Medical (2) Right knee pain: Code(s): M25.561 - Pain in right knee Category: Medical (3) Chronic pain syndrome: Code(s): G89.4 - Chronic pain syndrome Category: Medical (4) History of right hip replacement: Comment: Moy webb Code(s): Z96.641 - Presence of right artificial hip joint Category: Surgical (5) Complication of internal right hip prosthesis: Code(s): T84.9XXA - Unspecified complication of internal orthopedic prosthetic device, implant and graft, initial encounter; Z96.641 - Presence of right artificial hip joint Category: Medical (6) Right hip pain: Code(s): M25.551 - Pain in right hip Category: Medical Plan I will schedule this patient to repeat a genicular nerve block on the right. If this block will be successful I will offer him radiofrequency ablation of the genicular nerves. This patient needs to be very thoroughly explained what to do after the injection. He needs to complete a pain diary and visit this office 2 days after the procedure. As of his right hip pain which is secondary to lucency and mild position of the prosthesis Quip SCS versus cure on X PNS could be tried to stimulate dorsal root ganglion for this patient. Coding Level of Care Code Est Pt Level 3 (96491) Diagnoses Osteoarthritis of knees, bilateral M17.0 Right knee pain M25.561 Chronic pain syndrome G89.4 History of right hip replacement Z96.641 Complication of internal right hip prosthesis T84.9XXA; Z96.641 Right hip pain M25.551
[2025-04-19 10:23] VITALS: PULSE 65; RESP 18; O2SAT 97; BMI 30.3
--- OUTSIDE RECORDS SUMMARY | 2025-04-19 11:09 | XMS_ITS | Encounter Summary ---
Author Organization [employer] Address [address] [place] [address] Care Team Providers Care Medicare Coordinator Name Role Phone Name, Jon RUIZ Primary Care Provider [phone] Wendy Sage PharmD Unavailable [phone] Reason for Visit * Reason Comments Med Refill Encounter Details Date Type Department Care Team (Late st Contact Info) Description 02/09/2023 Refill [facility] [address] [place] [address] [phone] Name, MD [address] [place] [address] Pain in right shoulder Social History Tobacco Use Types Packs/Day Years Used Date Smoking Tobacco: Never Smokeless Tobacco: Never PHQ-2 Answer Date Recorded Patient Health Questionnaire-2 Score 0 09/29/2022 Depression Answer Date Recorded Patient Health Questionnaire-2 Score 0 09/29/2022 Sex and Gender Information Value Date Recorded Sex Assigned at Male 06/15/2022 10:14 AM EDT Legal Sex Male 10:14 AM EDT Gender Identity Male 06/15/2022 10:14 AM EDT Sexual Orientation Straight 06/15/2022 10 :14 AM EDT COVID-19 Exposure Response Date Recorded In the last 10 days, have yo u been in contact with someone who was confirmed or suspected to have Coronavirus/COVID-19? Unable to assess 02/09/2023 9:20 AM EDT documented as of this encounter Plan of Treatment Upcoming Encounters Date Type Department Care Team (Late Contact Info) Description 05/04/2025 9:30 AM EDT Telemedicine [facility] [address] [place] [address] [phone] Mariama Vega RN 05/10/2025 11:30 AM EDT Medication Management [facility] [address] [place] [phone] Wendy Sage PharmD [address] [place] [phone] 07/02/2025 11:00 AM EST Office Visit [facility] [address] [place] [address] [phone] Name, MD Jon [address] [place] [phone] documented as of this encounter Goals Goal Patient Goal Type Associated Problems Recent Progress Patient-Stated? Author Hemoglobin A1c < 7.5 Result Component 7.7(01/23/2025 11:51 AM EDT) No Wendy Sage PharmD documented as of this encounter Visit Diagnoses Diagnosis Pain in right shoulder documented in this encounter Care Teams Medicare Coordinator Relationship Specialty Start Date End Date Name, MD Jon [address] [place] [phone] PCP - General Family Medicine 12/15/21 Wendy Sage PharmD [address] [place] [phone] Pharmacist Internal Medicine 03/31/22 documented as of this encounter
--- OUTSIDE RECORDS SUMMARY | 2025-04-19 11:09 | XMS_ITS | Clinical Summary ---
Author Organization [employer] Address [address] [facility] 7t [place] [address] Care Team Providers Care Jewelry Maker Name Role Phone Name, Jon RUIZ Primary Care Provider [phone] Wendy Sage PharmD Unavailable [phone] Allergies Active Allergy Reactions Criticality Noted Date Comments Acetaminophen Hives,Rash Low 10/04/2019 Ibuprofen Angioedema,Swelling High 01/04/2015 Medications aspirin 81 MG EC tablet take 1 Tablet by Oral route every day (OTC) Active omega-3 (Fish Oil) 1200 MG capsule Take 1 capsule by mouth daily, (OTC) Active Blood Pressure Monitoring (Omron 3 Series BP Monitor) device Use daily, as directed, to check BP Active amiodarone (Pacerone) 200 MG tablet TAKE 1 TABLET BY MOUTH TWICE DAILY FOR FOURTEEN DAYS THEN DECREASE TO TAKE 1 TABLET BY MOUTH EVERY DAY 08/02/20 23 Active glucose blood (OneTouch Verio) test stripIndications :Type 2 diabetes mellitus with diabetic nephropathy, without long-term current use of insulin ([facility]) Check blood sugar TID 100 each 12 04/25/20 24 2024 Active Lancets (OneTouch Delica Plus [id number]) miscIndications: Type 2 diabetes mellitus without complications ([facility]) USE DIRECTED TO TEST BLOOD SUGAR EVERY DAY 100 each 5 08/04/20 24 Active cholecalciferol (D3 Super Strength) 50 MCG (1999) capsuleIndicatio ns:Vitamin D deficiency TAKE 1 CAPSULE BY MOUTH AT BEDTIME 90 capsule 1 11/22/19 25 Active empagliflozin-li nagliptin (Glyxambi) 25-5 MGIndications:Ty pe 2 diabetes mellitus with diabetic nephropathy, without long-term current use of insulin ([facility]) Take 1 tablet by mouth in the morning. 90 tablet 3 01/24/20 25 2025 Active Alcohol Swabs (Alcohol Prep) 70 % padsIndications: Type 2 diabetes mellitus with diabetic nephropathy, without long-term current use of insulin (CMS/HCC) Use twice daily, as directed 200 each 3 01/24/20 25 Active sildenafil (Viagra) 50 MG tablet TAKE 1 TABLET 1 HOUR BEFORE SEXUAL RELATIONS ONCE DAILY NEEDED. 10 tablet 02/20/20 25 Active naloxone (Narcan) 4 mg/0.1 mL nasal sprayIndications :Long-term current use of opiate analgesic Administer 1 spray (4 mg) into affected nostril(s) if needed for opioid reversal. May repeat every 2-3 minutes if needed, alternating nostrils, until medical assistance becomes available. 2 each 3 03/02/20 25 2025 Active lisinopril-hydro CHLOROthiazide 20-12.5 MG tablet TAKE 1 TABLET BY MOUTH EVERY DAY 90 tablet 3 04/03/20 25 Active atorvastatin (Lipitor) 80 MG tablet TAKE 1 TABLET BY MOUTH EVERY DAY 90 tablet 3 04/13/20 25 Active atorvastatin (Lipitor) 80 MG tablet Take 1 tablet (80 mg) by mouth Once daily. 90 tablet 3 04/25/20 24 2024 Discontinued lisinopril-hydro CHLOROthiazide 20-12.5 MG tablet TAKE 1 TABLET BY MOUTH EVERY DAY 90 tablet 3 05/23/20 24 2024 Discontinued traMADol (Ultram) 50 MG tabletIndication s:Chronic right shoulder pain Take 1 tablet (50 mg) by mouth every 8 (eight) hours if needed for severe pain for up to 28 days. 84 tablet 03/14/20 25 2024 Active Problems Problem Noted Date Diagnosed Date Long-term current use of opiate analgesic 2024 Osteoarthritis of knees, bilateral 01/23/2025 Abdominal aortic aneurysm 01/23/2025 History of right hip replacement 01/23/2025 NSVT (nonsustained ventricular tachycardia) 01/14 Aneurysm 01/25/2024 Overview (01/25/2024): Calcific atherosclerotic changes are present in the aorta and iliofemoral vessels. There is mild aneurysmal dilatation of the infrarenal aorta with a maximum dimension of 3 cm. Follow-up ultrasound every 3 years is recommended. (01/2024) Laceration of lip 01/25/2024 Assessment & Plan (01/30/2024 2:24 PM EDT): Sutures removed without complication Fall 01/25/2024 Assessment & Plan (01/30/2024 2:25 PM EDT): Per hx mechanical fall, reviewed safety measures, Type 2 diabetes mellitus wit h diabetic nephropathy, without long-term current use of insulin 01/25/2024 Irregular heart rate 01/25/2024 Bradycardia 08/04/2022 Multiple premature ventricular complexes 021 Assessment & Plan (01/30/2024 2:25 PM EDT): Updated referral to cardiology Diabetic nephropathy associa lu with type 2 diabetes mellitus 09/15/2019 Stage 3a chronic kidney disease 10/11/2017 Overview (02/19/2023): Update for Diagnosis Load Vitamin D deficiency 09/09/2015 Type 2 diabetes mellitus without complication Obesity 09/09/2015 Mixed hyperlipidemia 09/09/2015 Gastroesophageal reflux disease without esophagi tis 09/09/2015 Essential hypertension 09/09/2015 Depressive disorder 09/09/2015 Arthropathy 09/09/2015 Encounters Date Type Department Care Team Description 04/13/2025 Refill [facility] [address] [place] [address] Jon Pérez MD 04/06/2025 Telephone [facility] [address] [place], [place] [phone] Esvin Carpenter MA oct recalls 04/02/2025 Refill [facility] [address] [place] [address] Jon Pérez MD 03/14/2025 Refill [facility]S [address] [place], [place] [phone] Jon Pérez MD Chronic right shoulder pain (Primary Dx) 03/09/2025 Telephone [facility] [address] [place] [address] Leila Alex, ABDULKADIR 03/08/[address] [address] Jon Pérez MD Durable Medical Equipment 03/07/2025 11:15 AM EDT Office Visit [address] [address] Jon Pérez MD Type 2 diabetes mellitus with diabetic nephropathy, without long-term current use of insulin ([facility]) (Primary Dx); Stage 3a chronic kidney disease ([facility]); Venous insufficiency 03/07/2025 Travel 03/02/2025 10:00 AM EDT Telemedicine [facility] [place] [place] [address] Mariama Vega RN Long-term current use of opiate analgesic 03/02/[address] [address] Mariama Vega RN Long-term current use of opiate analgesic (Primary Dx) 03/02/2025 Travel 02/19/[address] [address] Mariama Vega RN WOOD [employer]AP RUBBER Renewal forms 02/19/2025 Refill [facility] [address] [place] [address] Jon Pérez MD 01/25/[address] [address] Jon Pérez MD Consult Note 202301/23/2025 Travel 01/18/2025 Refill [facility] [address] [place] [address] Jon Pérez MD 01/17/2025 Telephone [facility] & PEDS [address] [place] [address] Jon Pérez MD Med Refill from Last 3 Months Immunizations Immunization Administration Dates Next Due Hep B, adult 09/03/2011,03/23/2011,02/20/2011 Influenza High-dose Quadriva lent Preservative Free 05/25/2023,06/01/2022,05/19/2021 Influenza injectable quadriv alent preservative free 07/15/2018,08/26/2016 Influenza, High Dose Seasona l, Preservative Free 05/01/2024,05/01/2019,05/03/2017 Influenza, IIV3, injectable 05/24/2014, 1 Influenza, Split (incl. thang fied surface antigen) 06/13/2013,04/14/2012 Moderna Covid-19 Vaccine 12+ 12/25/2021, 06/16/2021,10/25/2020,09/27 Pfizer Covid-19 Vaccine 12+ 05/26/2023 Pfizer Covid-19 Vaccine 12+ Bivalent 06/02/2022 Pneumococcal Conjugate PCV 13 12/13/2015 Pneumococcal Conjugate PCV 20 04/20/2023 Pneumococcal Polysaccharide PPSV23 02/05/2010 RSV Bivalent 07/26/2023 TD (adult), 2 Lf tetanus tox oid, preservative free, adsorbed 05/19/2021,03/03/2004 Tdap 12/11/2010 Zoster, Recombinant 07/07/2022,03/31/2022 Zoster, live 03/29/2015 Social History Tobacco Use Types Packs/Day Years Used Date Smoking Tobacco: Never Smokeless Tobacco: Never Tobacco Cessation:Counseling Given: Not Answered Alcohol Use Standard Drinks/Week Comments Yes 0 (1 standard drink = 0.6 oz pur e alcohol) occassional Alcohol Answer Date Recorded Frequency of Alcohol Consumption Not on file 01/25/2024 Average Number of Drinks Not on file 024 Frequency of Binge Drinking Not on file 01/14 Score 1 01/25/2024 Depression Answer Date Recorded Patient Health Questionnaire-9 Score 4 03/07/2025 Patient Health Questionnaire-9 Score 4 03/07/2025 Last PHQ-9: Questionnaire Data Not on file 0 03/07/2025 Housing Stability Answer Date Recorded What is your housing situation today? I have michael flores 03/07/[address] you li ve. Do you have problems with any of the following? None of the above 03/07/2025 Food Insecurity Answer Date Recorded Within the past 12 months, y ou worried that your food would run out before you got money to buy more: Never True 03/07/2025 Within the past 12 months,th e food you bought just didn't last and you didn't have enough money to get more: Never True Transportation Answer Date Recorded In the past 12 months, has l ack of transportation kept you from medical appts, meetings, work or from getting things needed for daily living? No 03/07/2025 Utilities Answer Date Recorded In the past 12 months, has t he electric, gas, oil or water company threatened to shut off services in your home? No 03/07/2025 Depression Answer Date Recorded Patient Health Questionnaire-2 Score 3 03/07/2025 Internet Access Answer Date Recorded Internet Access Q1 Yes 03/07/2025 Internet Access Q2 Not on file 03/07/2025 Sex and Gender Information Value Date Recorded Sex Assigned at Male 06/15/2022 10:14 AM EDT Legal Sex Male 10:14 AM EDT Gender Identity Male 06/15/2022 10:14 AM EDT Sexual Orientation Straight 06/15/2022 10 :14 AM EDT Last Filed Vital Signs Vital Sign Reading Time Taken Comments Blood Pressure 136/76 03/07/2025 11:16 AM EDT Pulse 62 03/07/2025 11:16 AM EDT Temperature 36.3 C (97.3 F) 03/07/2025 11:16 AM EDT Respiratory Rate 14 03/07/2025 11:16 AM EDT Oxygen Saturation 98% 03/07/2025 11:16 AM EDT Inhaled Oxygen Concentration - - Weight 85.4 kg (188 lb 3.2 oz) 03/07/2025 11:16 AM EDT Height 160 cm (5' 3 ) 03/07/2025 11:16 AM EDT Body Mass Index 33.34 03/07/2025 11:16 AM EDT Plan of Treatment Upcoming Encounters Date Type Department Care Team (Late st Contact Info) Description 05/04/2025 9:30 AM EDT Telemedicine [facility] [address] [place] [address] Mariama Vega RN 05/10/2025 11:30 AM EDT Medication Management [facility] [address] [place] [address] Wendy Sage, PharmD [address] [place] [address] 07/02/2025 11:00 AM EST Office Visit [facility] [address] [place], [place] [phone] Name, MD Jon [address] [place] [address] Health Maintenance Due Date Last Done Comments COVID-19 Vaccine ( season) 2025 05/26/2023, 06/02/2022, 12/25/2021, Additional history exists Influenza Vaccine (#1) 2025 , 05/25/2023, 06/01/2022, Additional history exists Diabetes: Hemoglobin A1C 04/25/2025 025, 09/25/2024, 04/25/2024, Additional history exists Eye Exam 07/21/2025 07/21/2023 Diabetes: Foot Exam 11/02/2025 11/02/2024, 11/02/2024, 11/02/2024, Additional history exists Lipid Panel 01/16/2026 01/16/2025, 09/2022, 10/07/2022, Additional history exists Alcohol/Substance Use Screening 03/07/2026 03/07/2025 Depression Screening 03/07/2026 03/07/2025, 03/07/20 25 SDOH Screening 03/07/2026 03/07/2025 Tobacco Screening 03/07/2026 03/07/2025 DTaP/Tdap/Td Vaccines (3 - Td or Tdap) 05/19/2031 05/19/2021, 12/11/2010, 03/03/2004 Hepatitis B Vaccines Completed 09/03/2011, 03/23/2011, 02/20/2011 Zoster Vaccines Completed 07/07/2022, 03/16, 03/29/2015 Pneumococcal Vaccine: 50+ Years Completed 04/20/2023, 12/13/2015, 02/05/2010 RSV Patients and Patients Aged 60 years or older Completed 07/26/2023 HIB Vaccines Aged Out No longer eligi ble based on patient's age to complete this topic HPV Vaccines Aged Out No longer eligi ble based on patient's age to complete this topic Hepatitis A Vaccines Aged Out No long er eligible based on patient's age to complete this topic IPV Vaccines Aged Out No longer eligi ble based on patient's age to complete this topic Meningococcal B Vaccine Aged Out No l onger eligible based on patient's age to complete this topic Meningococcal Vaccine Aged Out No jeimy pato eligible based on patient's age to complete this topic RSV under 20 months Aged Out No longe r eligible based on patient's age to complete this topic Rotavirus Vaccines Aged Out No longer eligible based on patient's age to complete this topic Goals Goal Patient Goal Type Associated Problems Recent Progress Patient-Stated? Author Hemoglobin A1c < 7.5 Result Component 7.7( 11:51 AM EDT) No Wendy Sage, PharmMarian Record your blood sugar as directed Result Component No Wendy Sage PharmD Note: Alternating fasting & 2-hr postprandial. Procedures Procedure Name Priority Date/Time Associated Diagnosis Comments POCT GLUCOSE Routine 03/07/2025 11:17 AM EDT Type 2 diabetes mellitus with diabetic nephropathy, without long-term current use of insulin ([facility]) POCT GLYCATED HEMOGLOBIN, TOTAL Routine 01/23/2025 11:51 AM EDT Type 2 diabetes mellitus with diabetic nephropathy, without long-term current use of insulin ([facility]) LIPID PANEL, STANDARD Routine 01/16/2025 9:22 AM EDT from Last 3 Months or Most Recently Relevant to Health Maintenance Results * POCT Glucose (03/07/2025 11:17 AM EDT) Glucose Blood, POC 112 60 - 200 mg/dL QC Media Lot # [id number] Lot# Expiration Date Blood Capillary blood specimen / Unknown 03/07/2025 11:17 AM EDT us Jon Pérez MD POINT OF CARE TEST ENTER/EDIT OR DERABLES Final Result * (ABNORMAL) POCT HGB A1C (01/23/2025 11:51 AM EDT) Hemoglobin A1C 7.7(A) 4.0 - 6.0 % Blood 01/23/2025 11:5 1 AM EDT us Jon Pérez MD POINT OF CARE TEST ENTER/EDIT OR DERABLES Final Result * (ABNORMAL) Lipid Panel, Standard (01/16/2025 9:22 AM EDT) Triglycerides 67 <150 mg/dL [facility] Comment:Desirable Triglyceri de: less than 150 mg/dLBorderline High Triglyceride 150-199 mg/dLHigh Triglyceride: 200-499 mg/dLVery High Triglyceride: greater than or equal to 5OO mg/dL Cholesterol 118 <200 mg/dL [facility] Comment:Desirable Cholestero l: less than 200 mg/dLBorderline High Cholesterol: 200-239 mg/dLHigh Cholesterol: greater than 239 mg/dL LDL Cholesterol Calculated 66 <100 mg/dL [facility] Comment:Desirable LDL: less than 100 mg/dLNear Optimal/Above Optimal LDL: 110- 129 mg/dLBorderline High LDL: 130-159 mg/dLHigh LDL: 160-189 mg/dLVery High LDL: greater than or equal to 190 mg/dL HDL Cholesterol 39(L) >40 mg/dL [facility] Comment:Desirable HDL: great er than 40 mg/dL Note: This HDL assay may give artificially low results in patients with liver disease. 01/16/2025 9:22 AM EDT 01/16/2025 11:50 AM EDT us Jon Pérez MD LAB BLOOD ORDERABLES Final Resul t [facility] [address] [place] [phone] from Last 3 Months or Most Recently Relevant to Health Maintenance Insurance [facility] [employer] OPTIONS (HMO D-SNP) * Guarantor: Kt Mendiola Account Type Relation to Patient Date of Phone Billing Address Personal/Family Self [address] Care Teams Jewelry Maker Relationship Specialty Start Date End Date Name, MD Jon [address] [place] [address] PCP - General Family Medicine 12/15/21 Wendy Sage PharmD [address] [place] [address] Pharmacist Internal Medicine 03/31/22
--- OUTSIDE RECORDS SUMMARY | 2025-04-19 11:09 | XMS_ITS | Encounter Summary ---
Author Organization [facility] Address [address] [place] [address] Phone Care Team Providers Care Human Resources Office Assistant Name Role Phone Name, Jon RUIZ Primary Care Provider [phone] Encounter Details Date Type Department Care Team (Late Contact Info) Description 04/19/2023 Orders Only [facility] [address] [place] [address] Nicole Patterson PA [address] [place] [address] Stage 3a chronic kidney disease (HCC); Essential hypertension; Type 2 diabetes mellitus without complication (HCC) Social History Tobacco Use Types Packs/Day Years [...] Care Team (Late st Contact Info) Description 06/19/2025 2:30 PM EST Office Visit [facility] [address] [place] [address] Kevyn Nevarez MD [address] [place] [address] documented as of this encounter Visit Diagnoses Diagnosis Stage 3a chronic kidney disease (HCC) Essential hypertension Type 2 diabetes mellitus without complication (HCC) documented in this encounter Care Teams Human Resources Office Assistant Relationship Specialty Start Date End Date Name, MD Jon [address] [place] [phone] PCP - General Internal Medicine 04/09/22 documented as of this encounter
--- OUTSIDE RECORDS SUMMARY | 2025-04-19 11:09 | XMS_ITS | Encounter Summary ---
Author Organization [employer] Address [address] [facility] 7t [place] [address] Care Team Providers Care Field Interviewer Name Role Phone Name, Jon RUIZ Primary Care Provider [phone] Wendy Sage PharmD Unavailable [phone] Reason for Visit * Reason Comments Med Refill Encounter Details Date Type Department Care Team ([facility] st Contact Info) Description 04/25/2024 Refill [facility]S [address] [place], [place] [phone] Name, MD Jon [address] [place] [address] Social History Tobacco Use Types Packs/Day Years [...] Info) Description 05/04/2025 9:30 AM EDT Telemedicine [address] [address] Mariama Vega RN 05/10/2025 11:30 AM EDT Medication Management [address] [address] Wendy Sage PharmD [address] [place] [address] 07/02/2025 11:00 AM EST Office Visit [address] [address] Name, MD Jon [address] [place] [address] documented as of this encounter Goals Goal Patient Goal Type Associated Problems Recent Progress Patient-Stated? Author Hemoglobin A1c < 7.5 Result Component 7.7( 11:51 AM EDT) No Wendy Sage, PharmD Record your blood sugar as directed Result Component No Wendy Sage, PharmD Note: Alternating fasting & 2-hr postprandial. documented as of this encounter Visit Diagnoses Not on filedocumented in this encounter Additional Health Concerns Assessment Noted Time PHQ-9 Depression Total Score: 0 12/30/19 24 9:13 AM EDT documented as of this encounter Care Teams Field Interviewer Relationship Specialty Start Date End Date Name, MD Jon [address] [place] [address] PCP - General Family Medicine 12/15/21 Wendy Sage PharmD [address] [place] [address] Pharmacist Internal Medicine 03/31/22 documented as of this encounter
--- OUTSIDE RECORDS SUMMARY | 2025-04-19 11:09 | XMS_ITS | Encounter Summary ---
Author Organization [facility] Address [address] [facility] [address] [place] [address] Phone Care Team Providers Care Oil Mixer Name Role Phone Name, Jon RUIZ Primary Care Provider [phone] Encounter Details Date Type Department Care Team ([facility] Contact Info) Description 04/09/2022 Documentation Only [facility] [address] [place] [address] Name, MD Jon [address] [place] [address] Social History Tobacco Use Types Packs/Day Years [...] Upcoming Encounters Date Type Department Care Team ([facility] Contact Info) Description 06/19/2025 2:30 PM EST Office Visit [facility] [address] [place] [address] Kevyn Nevarez MD [address] [place] [address] [place] [address] documented as of this encounter Visit Diagnoses Not on filedocumented in this encounter Care Teams Oil Mixer Relationship Specialty Start Date End Date Name, MD Jon [address] [place], [place] [phone] PCP - General Internal Medicine 04/09/22 documented as of this encounter
--- OUTSIDE RECORDS SUMMARY | 2025-04-19 11:09 | XMS_ITS | Encounter Summary ---
Author Organization [employer] Address [address] [facility] 7t [place] [address] Care Team Providers Care Medical Records Clerk Name Role Phone Name, Jon RUIZ Primary Care Provider [phone] Wendy Sage PharmD Unavailable [phone] Reason for Visit * Reason Comments Med Refill Encounter Details Date Type Department Care Team ([facility] Contact Info) Description 03/02/2023 Refill [facility] MEDICINE [address] [place] [phone] Name, MD Jon [address] [place] [address] Pain in right shoulder Social History Tobacco Use Types Packs/Day Years Used Date Smoking Tobacco: Never Smokeless Tobacco: Never Alcohol Use Standard Drinks/Week Comments Yes 0 (1 standard drink = 0.6 oz pur e alcohol) occassional PHQ-2 Answer Date Recorded Patient Health Questionnaire-2 [...] suspected to have Coronavirus/COVID-19? Unable to assess 02/23/2023 9:01 AM EDT documented as of this encounter Plan of Treatment Upcoming Encounters Date Type Department Care Team ([facility] Contact Info) Description 05/04/2025 9:30 AM EDT Telemedicine [address] [address] Mariama Vega RN 05/10/2025 11:30 AM EDT Medication Management [address] [address] Wendy Sage PharmD [address] [place] [address] 07/02/2025 11:00 AM EST Office Visit [address] [address] Name, MD Jon [address] [place] [address] documented as of this encounter Goals Goal Patient Goal Type Associated Problems Recent Progress Patient-Stated? Author Hemoglobin A1c < 7.5 Result Component 7.7( 11:51 AM EDT) No Wendy Sage PharmD Record your blood sugar as directed Result Component No Wendy Sage PharmD Note: Alternating fasting & 2-hr postprandial. documented as of this encounter Visit Diagnoses Diagnosis Pain in right shoulder documented in this encounter Care Teams Medical Records Clerk Relationship Specialty Start Date End Date NameJon MD [address] [place] [phone] PCP - General Family Medicine 12/15/21 Wendy Sage PharmD [address] [place] [address] Pharmacist Internal Medicine 03/31/22 documented as of this encounter
--- OUTSIDE RECORDS SUMMARY | 2025-04-19 11:09 | XMS_ITS | Encounter Summary ---
Author Organization [facility] Address [address] [place] [address] Phone Care Team Providers Care Lead Sql Developer Name Role Phone Name, Jon RUIZ Primary Care Provider [phone] Encounter Details Date Type Department Care Team ([facility] Contact Info) Description 05/10/2024 Documentation Only [facility] [address] [place] [address] Etelvina Mcdaniel [address] [place] [address] Social History Tobacco Use Types Packs/Day Years [...] Upcoming Encounters Date Type Department Care Team ([facility] Contact Info) Description 06/19/2025 2:30 PM EST Office Visit [facility] [address] [place] [address] Kevyn Nevarez MD [address] [place] [address] [place] [address] documented as of this encounter Visit Diagnoses Not on filedocumented in this encounter Care Teams Lead Sql Developer Relationship Specialty Start Date End Date Name, MD Jon [address] [place] [phone] PCP - General Internal Medicine 04/09/22 documented as of this encounter
--- OUTSIDE RECORDS SUMMARY | 2025-04-19 11:09 | XMS_ITS | Encounter Summary ---
Author Organization [facility] [place], Address [address] [place] [address] Phone Care Team Providers Care Non Profit Financial Controller Name Role Phone Name, Jon RUIZ Primary Care Provider [phone] Encounter Details Date Type Department Care Team ([facility] Contact Info) Description 05/10/2023 Documentation Only [facility] [address] [place] [address] Kevyn Nevarez MD [address] [place] [address] [place] [address] Social History Tobacco Use Types [...] Visit [facility] [address] [place] [address] Kevyn Nevarez MD [address] [place] [address] [place] [address] documented as of this encounter Visit Diagnoses Not on filedocumented in this encounter Care Teams Non Profit Financial Controller Relationship Specialty Start Date End Date Name, MD Jon [address] [place] [address] PCP - General Internal Medicine 04/09/22 documented as of this encounter
--- OUTSIDE RECORDS SUMMARY | 2025-04-19 11:09 | XMS_ITS | Encounter Summary ---
Author Organization [facility] [place], Address [address] [place] [address] Phone Care Team Providers Care Blood Bank Business Manager Name Role Phone Name, Jon RUIZ Primary Care Provider [phone] Encounter Details Date Type Department Care Team ([facility] Contact Info) Description 11/04/2023 Documentation Only [facility] [address] [place] [address] Etelvina Mcdaniel [address] [place] [address] Social History Tobacco Use Types [...] Upcoming Encounters Date Type Department Care Team ([facility] Contact Info) Description 06/19/2025 2:30 PM EST Office Visit [facility] [address] [place] [address] Kevyn Nevarez MD [address] [place] [address] [place] [address] documented as of this encounter Visit Diagnoses Not on filedocumented in this encounter Care Teams Blood Bank Business Manager Relationship Specialty Start Date End Date Name, MD Jon [address] [place] [address] PCP - General Internal Medicine 04/09/22 documented as of this encounter
--- OUTSIDE RECORDS SUMMARY | 2025-04-19 11:09 | XMS_ITS | Clinical Summary ---
Author Organization [facility] [place], Address [address] [place] [address] [place] [address] Phone Care Team Providers Care Bridge Welder Name Role Phone Name, Jon RUIZ Primary Care Provider [phone] Allergies Active Allergy Reactions Criticality Noted Date Comments Acetaminophen Hives,Rash Low 06/28/2020 Ibuprofen Swelling High 01/04/2015 Medications lisinopril-hydr oCHLOROthiazide (PRINZIDE,ZESTO RETIC) 20-12.5 MG per tablet Take 1 tablet by mouth 1 (one) time each day 7 Active atorvastatin (LIPITOR) 80 MG tablet Take 80 mg by mouth at bed time 9 Active clonazePAM (KlonoPIN) 0.5 MG tablet Take 0.5 mg by mouth 2 (two) times a day 0 Active famotidine (PEPCID) 40 MG tablet Take 40 mg by mouth at bed time 0 Active mirtazapine (REMERON) 15 MG tablet Take 7.5 mg by mouth at night if needed 0 Active traMADol (ULTRAM) 50 MG tablet Take 50 mg by mouth 3 (three) times a day if needed 0 Active Flax Oil-Fish Oil-Borage Oil capsule Take 400 mg by mouth 1 (one) time each day Active aspirin EC 81 MG EC tablet Take 81 mg by mouth 1 (one) time each day Active pioglitazone (ACTOS) 15 MG tablet Take 15 mg by mouth 1 (one) time each day 1 Active D3 Super Strength 50 MCG (1999 UT) capsule Take 1 tablet by mouth 1 (one) time each day 3 Active Jardiance 10 MG tablet Take by mouth 3 Active metFORMIN XR (GLUCOPHAGE-XR) 500 MG 24 hr tablet TAKE 1 TABLET BY MOUTH ONCE DAILY WITH A MEAL 3 Active amiodarone (PACERONE) 200 MG tablet TAKE 1 TABLET BY MOUTH TWICE DAILY FOR FOURTEEN DAYS THEN DECREASE TO TAKE 1 TABLET BY MOUTH EVERY DAY Active Viagra 50 MG tablet TAKE 1 TABLET 1 HOUR BEFORE SEXUAL RELATIONS ONCE DAILY NEEDED. 4 Active Active Problems Problem Noted Date Diagnosed Date Type 2 diabetes mellitus without complication Stage 3a chronic kidney disease 09/15/2019 Overview (08/19/2020): Update for Diagnosis Load Essential hypertension 09/15/2019 Renal disorder due to type 2 diabetes mellitus 0 09/15/2019 Resolved Problems Problem Noted Date Diagnosed Date Resolved Date Diabetes mellitus 12/26/2020 07/14/2021 Hypertensive heart disease w ithout congestive heart failure 09/15/2019 07/14/2021 Vitamin D deficiency 09/15/2019 021 Immunizations Immunization Administration Dates Next Due Hepatitis B 09/03/2011,03/23/2011,02/20/2011 Influenza Split 06/13/2013,04/14/2012 Influenza Split High Dose Pr eservative Free IM 05/01/2019,05/03/2017 Influenza, Quadrivalent, Pre servative Free 07/15/2018,08/26/2016 Influenza, Unspecified 05/25/2023,2021,05/19/2021,05/24,05/11/2011 Moderna SARS-COV-2 12/25/2021,,10/25/2020,09/27 Pneumococcal Conjugate 13-Valent 12/13/2015 Pneumococcal Conjugate Pcv 20 04/20/2023 Pneumococcal Polysaccharide 02/05/2010 RSV RECOMBINANT 07/26/2023 SARS-CoV-2, Unspecified 05/26/2023,06/02/2022 Shingrix 07/07/2022,03/31/2022 Td 05/19/2021,03/03/2004 Tdap 12/11/2010 Zoster 03/29/2015 Family History Relation Status Comments Father Unknown Mother Unknown Social History Tobacco Use Types Packs/Day Years Used Date Smoking Tobacco: Former Cigarettes Q uit: 02/29/1980 Smokeless Tobacco: Former Quit: 02/29/1980 Tobacco Cessation:Counseling Given: Not Answered Comments:Smoking History Info:Every day Alcohol Use Standard Drinks/Week Comments Yes 0 (1 standard drink = 0.6 oz pure alcohol) Alcoholic Drinks/day: Occasional social drink Sex and Gender Information Value Date Recorded Sex Assigned at Not on file Legal Sex Male 4:37 PM EST Gender Identity Not on file Sexual Orientation Not on file Last Filed Vital Signs Vital Sign Reading Time Taken Comments Blood Pressure 118/62 11/10/2023 2:50 PM EDT Pulse 74 09/18/2019 3:12 PM EST Temperature - - Respiratory Rate 16 09/18/2019 3:12 PM EST Oxygen Saturation - - Inhaled Oxygen Concentration - - Weight 75.8 kg (167 lb) 11/10/2023 2:50 PM EDT Height 162.6 cm (5' 4 ) 11/10/2023 2:50 PM EDT Body Mass Index 28.67 11/10/2023 2:50 PM EDT Plan of Treatment Upcoming Encounters Date Type Department Care Team (Late st Contact Info) Description 06/19/2025 2:30 PM EST Office Visit [facility] [place], [address] [place] [address] Kevyn Nevarez MD [address] [facility] [place] [phone] Health Maintenance Due Date Last Done Comments Diabetes: Ophthalmology Exam 09/15/2019 Diabetes: Pedal Pulse Checked 09/15/2019 Diabetes: Sensory Foot Exam 09/15/2019 Diabetes: Visual Foot Exam 09/15/2019 Diabetes: Hemoglobin A1C 2024 025, 04/25/2024, 09/21/2023, Additional history exists Influenza Vaccine (#1) 2025 4, 05/25/2023, 06/01/2022, Additional history exists Hepatitis B Vaccine Aged Out 09/03/2011, 03/23/2011, 02/20/2011 No longer eligible based on patient's age to complete this topic Pneumococcal Vaccine: 50+ Years Completed 04/20/2023, 12/13/2015, 02/05/2010 Pneumococcal Vaccine: Peds (0 to 5 Years) and At-Risk Patients (6 to 49 Years) Discontinued 04/20/2023, 12/13/2015, 02/05/2010 Procedures Procedure Name Priority Date/Time Associated Diagnosis Comments HEMOGLOBIN A1C Routine 09/12/2018 8:11 AM EST from Last 3 Months or Most Recently Relevant to Health Maintenance Results * (ABNORMAL) Hemoglobin A1c (09/12/2018 8:11 AM EST) Hemoglobin A1C 6.5(H) (4-6) % [place] [id number] Comment: HEMOGLOBIN A1C(%) GLUCOSE CONTROL INDEX <6% EXCELLENT 6-7% VERY GOOD 7-8% GOOD 8-10% FAIR >10% POOR Hemoglobin (Hb) A1c testing is performed by Eduar Nanette-quant immunoassay. Any cause of shortened erythrocyte survival will reduce exposure of erythrocytes to glucose with a consequent decrease in Hb A1c (%). Testing performed or reported by ~[facility], ~a Service of [facility], ~[address] [place] [address]~ Cyndy Quiroga MD, Level Vial Setter 09/12/2018 8:11 AM EST us Kevyn Nevarez MD LAB BLOOD ORDERABLES Final Resul t [id number] from Last 3 Months or Most Recently Relevant to Health Maintenance Insurance Medicaid [place] Care Teams Bridge Welder Relationship Specialty Start Date End Date Name, MD Jon [address] [place] [address] PCP - General Internal Medicine 04/09/22
--- OUTSIDE RECORDS SUMMARY | 2025-04-19 11:09 | XMS_ITS | Encounter Summary ---
Author Organization [facility] [place], Address [address] [place] [address] Phone Care Team Providers Care Safety Compliance Specialist Name Role Phone Name, Jon RUIZ Primary Care Provider [phone] Encounter Details Date Type Department Care Team ([facility] Contact Info) Description 10/13/2022 Documentation Only [facility] [address] [place] [address] Nicole Patterson PA [address] [place] [address] [place] [address] Social History Tobacco Use Types Packs/Day Years [...] Visit [facility] [address] [place] [address] Kevyn Nevarez MD [address] [place] [address] [place] [address] documented as of this encounter Visit Diagnoses Not on filedocumented in this encounter Care Teams Safety Compliance Specialist Relationship Specialty Start Date End Date Name, MD Jon [address] [place] [address] PCP - General Internal Medicine 04/09/22 documented as of this encounter
== END 2025-04-19 10:48 | disposition home or self-care (01) ==
PROVIDERS: PCP Internal Medicine Geriatric Medicine; Visit Provider Anesthesiology
DX: M17.0 Bilateral primary osteoarthritis of knee (principal); M25.561 Pain in right knee; G89.4 Chronic pain syndrome; Z96.641 Presence of right artificial hip joint; T84.9XXA Unspecified complication of internal orthopedic prosthetic device, implant and graft, initial encounter; M25.551 Pain in right hip
CPT/HCPCS: 99213

== ENCOUNTER → 2025-04-19 10:02 | Outpatient (BNVA) | payer OTHER, SELFPAY | PROVIDERS: PCP Internal Medicine Geriatric Medicine; Visit Provider Anesthesiology | DX: M17.0 Bilateral primary osteoarthritis of knee (principal); M25.561 Pain in right knee; M25.551 Pain in right hip; G89.4 Chronic pain syndrome; Z96.641 Presence of right artificial hip joint; T84.9XXA Unspecified complication of internal orthopedic prosthetic device, implant and graft, initial encounter | CPT/HCPCS: 99212 ==

== ENCOUNTER 2025-04-23 11:21 | Outpatient (REF) | payer OTHER, SELFPAY ==
--- OUTSIDE RECORDS SUMMARY | 2025-04-23 14:06 | XMS_ITS | Clinical Summary ---
Author Organization [employer] Address [address] [facility] 7t [place] [address] Care Team Providers Care Accounting Manager Assistant Controller Name Role Phone Name, Jon RUIZ Primary Care Provider [phone] Wendy Sage PharmD Unavailable [phone] Allergies Active Allergy Reactions Criticality Noted [...] nephropathy, without long-term current use of insulin ([facility]) Check blood sugar TID 100 each 12 04/25/20 24 2024 Active Lancets (OneTouch Delica Plus [id number]) miscIndications: Type 2 diabetes mellitus without complications ([facility]) USE DIRECTED TO TEST BLOOD SUGAR EVERY DAY 100 each 5 08/04/20 24 Active cholecalciferol (D3 Super Strength) 50 MCG (1999) capsuleIndicatio ns:Vitamin D deficiency TAKE 1 CAPSULE BY MOUTH AT BEDTIME 90 capsule 1 11/22/19 25 Active empagliflozin-li nagliptin (Glyxambi) 25-5 MGIndications:Ty pe 2 diabetes mellitus with diabetic nephropathy, without long-term current use of insulin ([facility]) Take 1 tablet by mouth in the [...] Type Department Care Team Description 04/13/2025 Refill [facility] [address] [place] [address] Jon Pérez MD 04/06/2025 Telephone [facility] [address] [place], [place] [phone] Esvin Carpenter MA oct recalls 04/02/2025 Refill [facility] [address] [place] [address] Jon Pérez MD 03/14/2025 Refill [facility] [address] [place], [place] [phone] Jon Pérez MD Chronic right shoulder pain (Primary Dx) 03/09/2025 Telephone [facility] [address] [place] [address] Leila Alex, ABDULKADIR 03/08/[address] [address] Jon Pérez MD Durable Medical Equipment 03/07/2025 11:15 AM EDT Office Visit [address] [address] Jon Pérez MD Type 2 diabetes mellitus with diabetic nephropathy, without long-term current use of insulin ([facility]) (Primary Dx); Stage 3a chronic kidney disease ([facility]); Venous insufficiency 03/07/2025 Travel 03/02/2025 10:00 AM EDT Telemedicine [address] [address] Mariama Vega RN Long-term current use of opiate analgesic 03/02/2025 Refill [facility] [address] [place] [address] Mariama Vega RN Long-term current use of opiate analgesic (Primary Dx) 03/02/2025 Travel 02/19/2025 Telephone [facility] [address] [place] [address] Mariama Vega RN FORMULA MIXER Renewal forms 02/19/2025 Refill [facility] [address] [place] [address] Jon Pérez MD 01/25/[address] [address] Jon Pérez MD Consult Note 202301/23/2025 Travel from Last 3 Months Immunizations Immunization Administration [...] Info) Description 05/04/2025 9:30 AM EDT Telemedicine [facility] [address] [place] [address] Mariama Vega, ABDULKADIR 05/10/2025 11:30 AM EDT Medication Management [address] [address] Wendy Sage, Nathan [address] [place] [address] 07/02/2025 11:00 AM EST Office Visit [address] [address] Name, MD Jon [address] [place] [address] Health Maintenance Due Date Last Done Comments COVID-19 Vaccine (2024- season) 2025 05/26/2023, 06/02/2022, 12/25/2021, Additional history exists Influenza Vaccine (#1) 2025 , 05/25/2023, 06/01/2022, Additional history exists Diabetes: Hemoglobin A1C 04/25/2025 025, 09/25/2024, 04/25/2024, Additional history exists Eye Exam 07/21/2025 07/21/2023 Diabetes: Foot Exam 11/02/2025 11/02/2024, 11/02/2024, 11/02/2024, Additional history exists Lipid Panel 01/16/2026 01/16/2025, 09/2022, 10/07/2022, Additional history exists Alcohol/Substance Use Screening 03/07/2026 03/07/2025 Depression Screening 03/07/2026 03/07/2025, 03/07/20 SDOH Screening 03/07/2026 03/07/2025 Tobacco Screening 03/07/2026 [...] nephropathy, without long-term current use of insulin ([facility]) POCT GLYCATED HEMOGLOBIN, TOTAL Routine 01/23/2025 11:51 AM EDT Type 2 diabetes mellitus with diabetic nephropathy, without long-term current use of insulin ([facility]) LIPID PANEL, STANDARD Routine 01/16/2025 9:22 AM [...] 9:22 AM EDT) Triglycerides 67 <150 mg/dL [facility] Comment:Desirable Triglyceri de: less than 150 mg/dLBorderline High Triglyceride 150-199 mg/dLHigh Triglyceride: 200-499 mg/dLVery High Triglyceride: greater than or equal to 5OO mg/dL Cholesterol 118 <200 mg/dL [facility] Comment:Desirable Cholestero l: less than 200 mg/dLBorderline High Cholesterol: 200-239 mg/dLHigh Cholesterol: greater than 239 mg/dL LDL Cholesterol Calculated 66 <100 mg/dL [facility] Comment:Desirable LDL: less than 100 mg/dLNear Optimal/Above Optimal LDL: 110- 129 mg/dLBorderline High LDL: 130-159 mg/dLHigh LDL: 160-189 mg/dLVery High LDL: greater than or equal to 190 mg/dL HDL Cholesterol 39(L) >40 mg/dL [facility] Comment:Desirable HDL: great er than 40 mg/dL Note: This HDL assay may give artificially low results in patients with liver disease. 01/16/2025 9:22 AM EDT 01/16/2025 11:50 AM EDT us Jon Pérez MD LAB BLOOD ORDERABLES Final Resul t [facility] [address] [place] [address] [phone] from Last 3 Months or Most Recently Relevant to Health Maintenance Insurance [facility] [facility] OPTIONS (HMO D-SNP) Care Teams Accounting Manager Assistant Controller Relationship Specialty Start Date End Date Name, MD Jon [address] [place] [address] PCP - General Family Medicine 12/15/21 Wendy Sage PharmD [address] [place] [address] Pharmacist Internal Medicine 03/31/22
--- OUTSIDE RECORDS SUMMARY | 2025-04-23 14:06 | XMS_ITS | Encounter Summary ---
Author Organization [facility] [place], Address [address] [place] [address] Phone Care Team Providers Care Orchard Sprayer Name Role Phone Name, Jon RUIZ Primary Care Provider [phone] Encounter Details Date Type Department Care Team ([facility] Contact Info) Description 05/10/2024 Documentation Only [facility] [address] [place] [address] Etelvina Mcdaniel [address] [place] [address] Social History Tobacco Use Types [...] Upcoming Encounters Date Type Department Care Team ([facility] Contact Info) Description 06/19/2025 2:30 PM EST Office Visit [facility] [address] [place] [address] Kevyn Nevarez MD [address] [place] [address] [place] [address] documented as of this encounter Visit Diagnoses Not on filedocumented in this encounter Care Teams Orchard Sprayer Relationship Specialty Start Date End Date Name, MD Jon [address] [place] [address] PCP - General Internal Medicine 04/09/22 documented as of this encounter
--- OUTSIDE RECORDS SUMMARY | 2025-04-23 14:06 | XMS_ITS | Encounter Summary ---
Author Organization [facility] [place], Address [address] [place] [address] Phone Care Team Providers Care Fruit Buying Grader Name Role Phone Name, Jon RUIZ Primary Care Provider [phone] Encounter Details Date Type Department Care Team ([facility] Contact Info) Description 10/13/2022 Documentation Only [facility] [address] [place] [address] Nicole Patterson PA [address] [place] [address] [place] [address] Social History Tobacco Use Types [...] Visit [facility] [address] [place] [address] Kevyn Nevarez MD [address] [place] [address] [place] [address] documented as of this encounter Visit Diagnoses Not on filedocumented in this encounter Care Teams Fruit Buying Grader Relationship Specialty Start Date End Date Name, MD Jon [address] [place] [address] PCP - General Internal Medicine 04/09/22 documented as of this encounter
--- OUTSIDE RECORDS SUMMARY | 2025-04-23 14:06 | XMS_ITS | Encounter Summary ---
Author Organization [employer] Address [address] [facility] 7t [place] [address] Care Team Providers Care Technologist Infectious Disease Name Role Phone Name, Jon RUIZ Primary Care Provider [phone] Wendy Sage PharmD Unavailable [phone] Reason for Visit * Reason Comments Med Refill Encounter Details Date Type Department Care Team (Late st Contact Info) Description 02/09/[address] [facility] [address] [place] [address] [phone] Name, MD Jon [address] [place] [address] Pain in right shoulder Social History Tobacco [...] Info) Description 05/04/2025 9:[address] [facility] [address] [place] [address] [phone] Mariama Vega RN 05/10/2025 11:30 AM EDT Medication Management [facility] [address] [place] [address] Wendy Sage PharmD [address] [place] [address] 07/02/2025 11:00 AM EST Office Visit [facility] [address] [place] [address] Name, MD Jon [address] [place] [address] documented as of this encounter Goals Goal Patient Goal Type Associated Problems Recent Progress Patient-Stated? Author Hemoglobin A1c < 7.5 Result Component 7.7(01/23/2025 11:51 AM EDT) No Wendy Sage PharmD documented as of this encounter Visit Diagnoses Diagnosis Pain in right shoulder documented in this encounter Care Teams Technologist Infectious Disease Relationship Specialty Start Date End Date Name, MD Jon [address] [place] [address] PCP - General Family Medicine 12/15/21 Wendy aSge PharmD [address] [place] [address] Pharmacist Internal Medicine 03/31/22 documented as of this encounter
--- OUTSIDE RECORDS SUMMARY | 2025-04-23 14:06 | XMS_ITS | Encounter Summary ---
Author Organization [facility] [place], Address [address] [place] [address] Phone Care Team Providers Care Administrative Fellow Name Role Phone Name, Jon RUIZ Primary Care Provider [phone] Encounter Details Date Type Department Care Team ([facility] Contact Info) Description 11/04/2023 Documentation Only [facility] [address] [place] [address] Etelvina Mcdaniel [address] [place] [address] Social History Tobacco Use Types [...] Upcoming Encounters Date Type Department Care Team ([facility] Contact Info) Description 06/19/2025 2:30 PM EST Office Visit [facility] [address] [place] [address] Kevyn Nevarez MD [address] [place] [address] [place] [address] documented as of this encounter Visit Diagnoses Not on filedocumented in this encounter Care Teams Administrative Fellow Relationship Specialty Start Date End Date Name, MD Jon [address] [place] [address] PCP - General Internal Medicine 04/09/22 documented as of this encounter
--- OUTSIDE RECORDS SUMMARY | 2025-04-23 14:06 | XMS_ITS | Clinical Summary ---
Author Organization [facility] [place], Address [address] [place] [address] [place] [address] Phone Care Team Providers Care Intellectual Property Lawyer Name Role Phone Name, Jon RUIZ Primary Care Provider [phone] Allergies Active Allergy Reactions Criticality Noted Date [...] Visit [facility] [place], [address] [facility] [place] [place] [address] Kevyn Nevarez MD [address] [facility] [place] [phone] Health Maintenance Due Date Last Done Comments [...] AM EST) Hemoglobin A1C 6.5(H) (4-6) % [place] [address] Comment: HEMOGLOBIN A1C(%) GLUCOSE CONTROL INDEX <6% EXCELLENT 6-7% VERY GOOD 7-8% GOOD 8-10% FAIR >10% POOR Hemoglobin (Hb) A1c testing is performed by Eduar Nanette-quant immunoassay. Any cause of shortened erythrocyte survival will reduce exposure of erythrocytes to glucose with a consequent decrease in Hb A1c (%). Testing performed or reported by ~[facility], ~a Service of [facility], ~[address] [place] [address]~ Cyndy Quiroga MD, Business Executive 09/12/2018 8:11 AM EST us Kevyn Nevarez MD LAB BLOOD ORDERABLES Final Resul t [email or web address] from Last 3 Months or Most Recently Relevant to Health Maintenance Insurance Medicaid [place] Care Teams Intellectual Property Lawyer Relationship Specialty Start Date End Date Name, MD Jon [address] [place] [address] PCP - General Internal Medicine 04/09/22
--- OUTSIDE RECORDS SUMMARY | 2025-04-23 14:06 | XMS_ITS | Encounter Summary ---
Author Organization [facility] Address PO [facility] [address] [place] [address] Phone Care Team Providers Care C++ Professor Name Role Phone Name, Jon RUIZ Primary Care Provider [phone] Encounter Details Date Type Department Care Team ([facility] Contact Info) Description 04/09/2022 Documentation Only [facility] [address] [place] [address] Name, MD Jon [address] [place] [address] Social History Tobacco Use Types Packs/Day Years [...] Upcoming Encounters Date Type Department Care Team ([facility] Contact Info) Description 06/19/2025 2:30 PM EST Office Visit [facility] [address] [place] [address] Kevyn Nevarez MD [address] [place] [address] [place] [address] documented as of this encounter Visit Diagnoses Not on filedocumented in this encounter Care Teams C++ Professor Relationship Specialty Start Date End Date Name, MD Jon [address] [place], [place] [phone] PCP - General Internal Medicine 04/09/22 documented as of this encounter
--- OUTSIDE RECORDS SUMMARY | 2025-04-23 14:06 | XMS_ITS | Encounter Summary ---
Author Organization [employer] Address [address] [facility] 7t [place] [address] Care Team Providers Care Senior Packaging Engineer Name Role Phone Name, Jon RUIZ Primary Care Provider [phone] Wendy Sage PharmD Unavailable [phone] Reason for Visit * Reason Comments Med Refill Encounter Details Date Type Department Care Team ([facility] Contact Info) Description 03/02/2023 Refill [facility] MEDICINE [address] [place] [address] [phone] Name, MD Jon [address] [place] [address] Pain in right shoulder Social History Tobacco [...] ([facility] Contact Info) Description 05/04/2025 9:30 AM EDT Telemedicine [address] [address] Mariama Vega RN 05/10/2025 11:30 AM EDT Medication Management [address] [address] Wendy Sage PharmD [address] [place] [address] 07/02/2025 11:00 AM EST Office Visit [address] [address] Name, MD Jon [address] [place] [address] documented as of this encounter Goals Goal [...] shoulder documented in this encounter Care Teams Senior Packaging Engineer Relationship Specialty Start Date End Date NameJon MD [address] [place] [address] PCP - General Family Medicine 12/15/21 Wendy Sage PharmD [address] [place] [address] Pharmacist Internal Medicine 03/31/22 documented as of this encounter
--- OUTSIDE RECORDS SUMMARY | 2025-04-23 14:06 | XMS_ITS | Encounter Summary ---
Author Organization [facility], Address [address] [place] [address] Phone Care Team Providers Care Hot Stick Worker Name Role Phone Name, Jon RUIZ Primary Care Provider [phone] Encounter Details Date Type Department Care Team ([facility] Contact Info) Description 05/10/2023 Documentation Only [facility] [address] [place] [address] Kevyn Nevarez MD [address] [place] [address] [place] [address] Social History Tobacco Use Types [...] Visit [facility] [address] [place] [address] Kevyn Nevarez MD [address] [place] [address] [place] [address] documented as of this encounter Visit Diagnoses Not on filedocumented in this encounter Care Teams Hot Stick Worker Relationship Specialty Start Date End Date Name, MD Jon [address] [place] [address] PCP - General Internal Medicine 04/09/22 documented as of this encounter
--- OUTSIDE RECORDS SUMMARY | 2025-04-23 14:06 | XMS_ITS | Encounter Summary ---
Author Organization [employer] Address 75 [facility] 7t [place] [address] Care Team Providers Care Drapery Hand Name Role Phone Name, Jon RUIZ Primary Care Provider [phone] Wendy Sage PharmD Unavailable [phone] Reason for Visit * Reason Comments Med Refill Encounter Details Date Type Department Care Team ([facility] st Contact Info) Description 04/25/2024 Refill [facility] CHC MED & PEDS [address] [place], [place] [phone] Name, MD Jon [address] [place] [address] Social History Tobacco Use Types Packs/Day Years [...] Info) Description 05/04/2025 9:30 AM EDT Telemedicine [address] [address] Mariama Vega RN 05/10/2025 11:30 AM EDT Medication Management [address] [address] Wendy Sage PharmD [address] [place] [address] 07/02/2025 11:00 AM EST Office Visit [address] [address] Name, MD Jon [address] [place] [address] documented as of this encounter Goals Goal [...] documented as of this encounter Care Teams Drapery Hand Relationship Specialty Start Date End Date Name, MD Jon [address] [place] [address] PCP - General Family Medicine 12/15/21 Wendy Sage PharmD [address] [place] [address] Pharmacist Internal Medicine 03/31/22 documented as of this encounter
--- OUTSIDE RECORDS SUMMARY | 2025-04-23 14:06 | XMS_ITS | Encounter Summary ---
Author Organization [facility] Address [address] [place] [address] Phone Care Team Providers Care Medical Assistant Float Name Role Phone Name, Jon RUIZ Primary Care Provider [phone] Encounter Details Date Type Department Care Team (Late Contact Info) Description 04/19/2023 Orders Only [facility] [address] [place] [address] Nicole Patterson PA [address] [place] [address] Stage 3a chronic kidney disease [...] Visit [facility] [address] [place] [address] Kevyn Nevarez MD [address] [facility] [place] [address] documented as of this encounter Visit Diagnoses Diagnosis Stage 3a chronic kidney disease (HCC) Essential hypertension Type 2 diabetes mellitus without complication (HCC) documented in this encounter Care Teams Medical Assistant Float Relationship Specialty Start Date End Date Name, MD Jon [address] [place] [address] PCP - General Internal Medicine 04/09/22 documented as of this encounter
[2025-04-23 14:40] LABS: Alanine Aminotransferase 18 U/L (0-40); Albumin Level 4.3 g/dL (3.5-5.0); Alkaline Phosphatase 121 U/L (39-117); Aspartate Amino Transferase 24 U/L (5-37); Total Protein 7.8 g/dL (6.5-8.0)
== END 2025-04-23 11:22 | disposition home or self-care (01) ==
LOC: HO.HHCL 11:21
PROVIDERS: PCP Internal Medicine Geriatric Medicine; Visit Provider Internal Medicine Cardiovascular Disease
DX: Z51.81 Encounter for therapeutic drug level monitoring (principal); Z13.29 Encounter for screening for other suspected endocrine disorder
CPT/HCPCS: 36415; 80076; 84443

== ENCOUNTER 2025-05-24 11:27 | Outpatient (AMB) | payer OTHER, SELFPAY ==
--- NOTE | 2025-05-24 11:29 | MHC.OFFVIS ---
Vital Signs 05/24/25 11:31 Height 5 ft 5 in Weight 184 lb BMI 30.6 BP 139/74 Blood Pressure Location Lt brachial Position Sitting Respiration 16 Pulse 75 Pulse Source Pulse Oximeter Pulse Oximetry (%) 97 Oxygen Delivery Method Room Air Intake Visit Reasons: Left knee pain Administrator Of Home Health Required: Yes Allergies ibuprofen (IBUPROFEN) Allergy (Severe, Verified 05/24/25 11:33) SWELLING Ibuprofen Allergy (Unknown, Uncoded 03/09/24 10:11) unknown HPI Comments Details: Kt is back in my office to discuss pain in the left knee. 07/11/2024 he received genicular nerve block on the right knee. Unfortunately patient was lost for follow-up and did not complete his pain diary. However today he reports that his right knee is not painful at all. He would like to perform genicular nerve block on the left knee. He reports limited range of motion of the left knee, there is sensation of crepitus on physical exam of the left knee. I will schedule him for genicular nerve block. very pleasant 78 years old gentleman who presents in my office with complains on pain in the right knee with radiation on the lateral side of the hip up from the knee. He reports that most of the pain he feels in the knee. He reports that the pain started to bother him 1 year ago on the side of his thigh when he assumed uncomfortable position for some cardiology study. He reports that in the past Dr. Rain performed the injections on him. He is unable to sleep normally can not do activities of daily living can not take care of himself can not function normally. He is on permanent disability and he is 78 years old. Cold application in the winter may the pain in the knee worse however in the summer helps the pain in the knee. He reports that he takes tramadol for his pain but it does not help his pain. His and constant physical therapy physical therapist comes to his house and performs 3 times a week the exercises and he repeats those exercises every day as much as he can. [facility] Medical History (Updated 05/24/25 @ 11:42 by Young Masters MD) Diabetes Hypertension Surgical History History of right hip replacement History of left knee surgery Family History Mother No problems noted. Father No problems noted. Social History Alcohol intake: current Alcohol intake frequency: holidays/special occasions only Patient Tobacco Use Status: Former Tobacco user Years Smoked: 10 +/- Current occupational status: retired Review of Systems Const All systems reviewed & are unremarkable except as noted in HPI and below ENT Reports Normal hearing present Neuro Reports Normal hearing present, Denies Abnormal speech present and Denies Sensory deficit (Neuro) Physical Exam Vital Signs: Last Vital Signs Pulse 75 05/24/25 11:31 Resp 16 05/24/25 11:31 BP 139/74 05/24/25 11:31 Pulse Ox 97 05/24/25 11:31 Oxygen Delivery Method Room Air 05/24/25 11:31 BMI result Body Mass Index 30.6 Const General: no acute distress Orientation/consciousness: patient oriented x3 Eyes General: appearance normal, both eyes and all related structures Pupils: Equal, round and reactive pupils present EOM: EOMs intact bilaterally Neck Neck: Yes full ROM Chest Chest palpation & inspection: normal inspection of the chest Resp Effort & Inspection: normal respiratory effort, able to speak in complete sentences, normal respiratory pattern, no audible wheezes and no cough Cardio Jugular venous distension: no JVD GI Inspection: Yes normal to inspection Neuro General: patient oriented x3 and gait normal Cranial nerves: Yes CN's II-XII intact bilaterally, Yes Equal, round and reactive pupils present, Yes Normal hearing present and Yes Ability to bilaterally elevate shoulders present Speech: No Abnormal speech present Gait exam (Neuro): Normal gait present Motor exam (neuro): 5/5 motor strength present throughout Sensory Exam: No Sensory deficit (Neuro) Extrem Other: Right knee skin intact, no erythema or joint effusion. Tenderness along the lateral joint line. ROM full with abundant crepitus. Left knee skin intact no erythema or joint effusion. Tenderness all over the patella on palpation. Limited ROM with abundant crepitus. General: No pedal edema Psych Speech and movement: Normal speech and movement present Affect: normal affect Attitude: cooperative Thought process: Normal thought process present Thought content: Normal thought content present Insight: Good insight present (Psych) Judgement: Good judgement present (Psych) Assessment & Plan Assessment & Plan (1) Osteoarthritis of knees, bilateral: Code(s): M17.0 - Bilateral primary osteoarthritis of knee Category: Medical (2) Right knee pain: Code(s): M25.561 - Pain in right knee Category: Medical (3) Chronic pain syndrome: Code(s): G89.4 - Chronic pain syndrome Category: Medical (4) History of right hip replacement: Comment: 1996 Dr webb Code(s): Z96.641 - Presence of right artificial hip joint Category: Surgical (5) Complication of internal right hip prosthesis: Code(s): T84.9XXA - Unspecified complication of internal orthopedic prosthetic device, implant and graft, initial encounter; Z96.641 - Presence of right artificial hip joint Category: Medical (6) Right hip pain: Code(s): M25.551 - Pain in right hip Category: Medical (7) Left knee pain: Code(s): M25.562 - Pain in left knee Category: Medical Plan The patient denies significant pain syndrome from the right knee. He reports pain is stronger on the left knee. I will schedule him for diagnostic genicular nerve block on the left knee 1st. RFA of the genicular nerves as possible for this patient. Patient Instructions: Office staff Stephanie who is bilingual was helping today in the room to interpret conversation in [place]ian. Coding Level of Care Code Est Pt Level 3 (20507) Diagnoses Osteoarthritis of knees, bilateral M17.0 Right knee pain M25.561 Chronic pain syndrome G89.4 History of right hip replacement Z96.641 Complication of internal right hip prosthesis T84.9XXA; Z96.641 Right hip pain M25.551 Left knee pain M25.562
[2025-05-24 11:31] VITALS: BP 139/74; PULSE 75; RESP 16; O2SAT 97; BMI 30.6
== END 2025-05-24 11:39 | disposition home or self-care (01) ==
LOC: HO.PMC 11:28
PROVIDERS: PCP Internal Medicine Geriatric Medicine; Visit Provider Anesthesiology
DX: M17.0 Bilateral primary osteoarthritis of knee (principal); M25.561 Pain in right knee; G89.4 Chronic pain syndrome; Z96.641 Presence of right artificial hip joint; T84.9XXA Unspecified complication of internal orthopedic prosthetic device, implant and graft, initial encounter; M25.551 Pain in right hip; M25.562 Pain in left knee
CPT/HCPCS: 99213

== ENCOUNTER → 2025-05-24 11:27 | Outpatient (BNVA) | payer OTHER, SELFPAY | PROVIDERS: PCP Internal Medicine Geriatric Medicine; Visit Provider Anesthesiology | DX: M17.0 Bilateral primary osteoarthritis of knee (principal); M25.562 Pain in left knee; M25.561 Pain in right knee; M25.551 Pain in right hip; G89.4 Chronic pain syndrome; T84.9XXD Unspecified complication of internal orthopedic prosthetic device, implant and graft, subsequent encounter; Z96.641 Presence of right artificial hip joint | CPT/HCPCS: 99212 ==

== ENCOUNTER 2025-06-01 08:55 | Outpatient (REF) | payer OTHER, SELFPAY ==
--- OUTSIDE RECORDS SUMMARY | 2025-06-01 09:31 | XMS_ITS | Encounter Summary ---
Author Organization [employer] Address [address] [facility] 7t [place] [address] Care Team Providers Care Senior Writer Name Role Phone Name, Jon RUIZ Primary Care Provider [phone] Wendy Sage PharmD Unavailable [phone] Reason for Visit * Reason Comments Med Refill Encounter Details Date Type Department Care Team ([facility] st Contact Info) Description 04/25/2024 Refill [facility] CHC MED & PEDS [address] [place], [place] [phone] Name, MD Jon 230 [place] [address] Social History Tobacco Use Types Packs/Day Years [...] Care Team (Late st Contact Info) Description 06/22/2025 11:00 AM EST Medication Management [address] [address] Wendy Sage, PharmD [address] [place] [address] 07/02/2025 11:00 AM EST Office Visit [address] [address] Name, MD Jon [address] [place] [address] 07/27/2025 10:30 AM EST Telemedicine [address] [address] Mariama Vega, ABDULKADIR documented as of this encounter Goals Goal [...] documented as of this encounter Care Teams Senior Writer Relationship Specialty Start Date End Date Name, MD Jon 230 [place] [address] PCP - General Family Medicine 12/15/21 Wendy Sage PharmD [address] [place] [address] Pharmacist Internal Medicine 03/31/22 documented as of this encounter
--- OUTSIDE RECORDS SUMMARY | 2025-06-01 09:32 | XMS_ITS | Encounter Summary ---
Author Organization [employer] Address 75 [facility] 7t [place] [address] Care Team Providers Care Air Compressor Engineer Name Role Phone Name, Jon RUIZ Primary Care Provider [phone] Wendy Sage PharmD Unavailable [phone] Reason for Visit * Reason Comments Med Refill Encounter Details Date Type Department Care Team ([facility] st Contact Info) Description 05/31/2025 Refill [facility] CHC MED & PEDS [address] [place], [place] [phone] Name, MD Jon 230 [place] [address] Chronic right shoulder pain Social History Tobacco Use Types Packs/Day Years [...] Description 06/22/2025 11:00 AM EST Medication Management [address] [address] Wendy Sage PharmD [address] [place] [address] 07/02/2025 11:00 AM EST Office Visit [address] [address] Name, MD Jon [address] [place] [address] 07/27/2025 10:30 AM EST Telemedicine [address] [address] Mariama Vega RN documented as of this encounter Goals Goal Patient Goal Type Associated Problems Recent Progress Patient-Stated? Author Hemoglobin A1c < 7.5 Result Component 7.7( 11:51 AM EDT) No Wendy Sage, PharmD Record your blood sugar as directed Result Component No Wendy Sage, PharmD Note: Alternating fasting & 2-hr postprandial. documented as of this encounter Visit Diagnoses Diagnosis Chronic right shoulder pain Pain in joint, shoulder region documented in this encounter Additional Health Concerns Assessment Noted Time PHQ-9 Depression Total Score: 4 03/07/20 25 11:18 AM EDT documented as of this encounter Care Teams Air Compressor Engineer Relationship Specialty Start Date End Date Name, MD Jon 230 [place] [address] PCP - General Family Medicine 12/15/21 Wendy Sage, Nathan [address] [place] [address] Pharmacist Internal Medicine 03/31/22 documented as of this encounter
--- OUTSIDE RECORDS SUMMARY | 2025-06-01 09:32 | XMS_ITS | Encounter Summary ---
Author Organization [employer] Address 75 [facility] 7t [place] [address] Care Team Providers Care Packaging Associate Name Role Phone Name, Jon RUIZ Primary Care Provider [phone] Wendy Sage PharmD Unavailable [phone] Reason for Visit * Reason Onset Date Comments Med Refill 05/31/2025 Encounter Details Date Type Department Care Team (Late st Contact Info) Description 05/31/2025 Refill [facility] MEDICINE [address] [place], [place] [phone] Name, MD Jon 230 [place] [address] Chronic right shoulder pain Social History Tobacco [...] AM EDT documented as of this encounter Miscellaneous Notes * Telephone Encounter - Ileana Puckett - 05/31/2025 10:11 AM EDT TC from pt requesting medication refill. Medications needing refill : traMADol (Ultram) 50 MG tablet To be sent to: [facility] - [place], [place] - [address] [place] [address] documented in this encounter Plan of Treatment Upcoming Encounters Date Type Department Care Team (Late st Contact Info) Description 06/22/2025 11:00 AM EST Medication Management [facility] MEDICINE [address] [place] [address] Wendy Sage, PharmD [address] [place] [address] 07/02/2025 11:00 AM EST Office Visit [facility] MEDICINE [address] [place] [address] Name, MD Jon [address] [place] [address] 07/27/2025 10:30 AM EST Telemedicine [facility] MEDICINE [address] [place] [address] Mariama Vega, RN documented as of this encounter Goals Goal Patient Goal Type Associated Problems Recent Progress Patient-Stated? Author Hemoglobin A1c < 7.5 Result Component 7.7( 5 11:51 AM EDT) No Wendy Sage, PharmD [...] documented as of this encounter Care Teams Packaging Associate Relationship Specialty Start Date End Date Name, MD Jon [address] [place] [address] PCP - General Family Medicine 12/15/21 Wendy Sage, PharmD [address] [place] [address] Pharmacist Internal Medicine 03/31/22 documented as of this encounter
--- OUTSIDE RECORDS SUMMARY | 2025-06-01 09:32 | XMS_ITS | Encounter Summary ---
Author Organization [facility] [place], Address [address] [place] [address] Phone Care Team Providers Care Event Marketing Assistant Name Role Phone Name, Jon RUIZ Primary Care Provider [phone] Encounter Details Date Type Department Care Team ([facility] Contact Info) Description 10/13/2022 Documentation Only [facility] [address] [place] [address] Nicole Patterson PA [address] [place] [address] [place] [address] Social History Tobacco Use Types [...] Visit [facility] [address] [place] [address] Kevyn Nevarez MD [address] [place] [address] [place] [address] documented as of this encounter Visit Diagnoses Not on filedocumented in this encounter Care Teams Event Marketing Assistant Relationship Specialty Start Date End Date Name, MD Jon [address] [place] [address] PCP - General Internal Medicine 04/09/22 documented as of this encounter
--- OUTSIDE RECORDS SUMMARY | 2025-06-01 09:32 | XMS_ITS | Encounter Summary ---
Author Organization [employer] Address 75 [facility] 7t [place] [address] Care Team Providers Care Plate Shear Operator Name Role Phone Name, Jon RUIZ Primary Care Provider Wendy Sage PharmD Unavailable Reason for Visit * Reason Comments Med Refill Encounter Details Date Type Department Care Team (Late st Contact Info) Description 02/09/[address] [facility] MEDICINE [address] [place], [place] [phone] Name, MD Jon [address] [place] [address] Pain in right shoulder Social History Tobacco [...] Description 06/22/2025 11:00 AM EST Medication Management [facility] [address] [place] [address] Wendy Sage PharmD [address] [place] [address] 07/02/2025 11:00 AM EST Office Visit [address] [address] Name, MD Jon [address] [place] [address] 07/27/2025 10:30 AM EST Telemedicine [address] [address] Mariama Vega, ABDULKADIR documented as of this encounter Goals Goal Patient Goal Type Associated Problems Recent Progress Patient-Stated? Author Hemoglobin A1c < 7.5 Result Component 7.7(01/23/2025 11:51 AM EDT) No Wendy Sage PharmD documented as of this encounter Visit Diagnoses Diagnosis Pain in right shoulder documented in this encounter Care Teams Plate Shear Operator Relationship Specialty Start Date End Date Name, MD Jon [address] [place] [address] PCP - General Family Medicine 12/15/21 Wendy Sage PharmD [address] [place] [address] Pharmacist Internal Medicine 03/31/22 documented as of this encounter
--- OUTSIDE RECORDS SUMMARY | 2025-06-01 09:32 | XMS_ITS | Encounter Summary ---
Author Organization [facility], Address [address] [place] [address] Phone Care Team Providers Care Produce Laborer Name Role Phone Name, Jon RUIZ Primary Care Provider [phone] Encounter Details Date Type Department Care Team ([facility] Contact Info) Description 11/04/2023 Documentation Only [facility] [address] [place] [address] Etelvina Mcdaniel [address] [place] [address] Social History Tobacco Use Types [...] Visit [facility] [address] [place] [address] Kevyn Nevarez MD [address] [place] [address] [place] [address] documented as of this encounter Visit Diagnoses Not on filedocumented in this encounter Care Teams Produce Laborer Relationship Specialty Start Date End Date Name, MD Jon [address] [place] [address] PCP - General Internal Medicine 04/09/22 documented as of this encounter
--- OUTSIDE RECORDS SUMMARY | 2025-06-01 09:32 | XMS_ITS | Encounter Summary ---
Author Organization [employer] Address 75 [facility] 7t [place] [address] Care Team Providers Care Director Life Insurance Name Role Phone Name, Jon RUIZ Primary Care Provider [phone] Wendy Sage PharmD Unavailable [phone] Reason for Visit * Reason Comments Med Refill Encounter Details Date Type Department Care Team ([facility] Contact Info) Description 03/02/2023 Refill [facility] MEDICINE [address] [place] [phone] Name, MD Jon [address] [place] [address] Pain in right shoulder Social History Tobacco [...] Upcoming Encounters Date Type Department Care Team ([facility] Contact Info) Description 06/22/2025 11:00 AM EST Medication Management [address] [address] Wendy Sage PharmD [place] 07/02/2025 11:00 AM EST Office Visit [address] [address] Name, MD [place] 07/27/2025 10:30 AM EST Telemedicine [address] [address] Mariama Vega RN documented as of this [...] shoulder documented in this encounter Care Teams Director Life Insurance Relationship Specialty Start Date End Date NameJon MD [address] [place] [address] PCP - General Family Medicine 12/15/21 Wendy Sage PharmD [address] [place] [address] Pharmacist Internal Medicine 03/31/22 documented as of this encounter
--- OUTSIDE RECORDS SUMMARY | 2025-06-01 09:32 | XMS_ITS | Clinical Summary ---
Author Organization [facility] [place], Address [address] [place] [address] [place] [address] Phone Care Team Providers Care Storage Architect Name Role Phone Name, Jon RUIZ Primary Care Provider [phone] Allergies Active Allergy Reactions Criticality Noted Date [...] Visit [facility] [place], [address] [place] [address] Kevyn Nevarez MD [address] [facility] [place] [phone] Health Maintenance Due Date Last Done Comments [...] AM EST) Hemoglobin A1C 6.5(H) (4-6) % [place] [address] Comment: HEMOGLOBIN A1C(%) GLUCOSE CONTROL INDEX <6% EXCELLENT 6-7% VERY GOOD 7-8% GOOD 8-10% FAIR >10% POOR Hemoglobin (Hb) A1c testing is performed by Eduar Nanette-quant immunoassay. Any cause of shortened erythrocyte survival will reduce exposure of erythrocytes to glucose with a consequent decrease in Hb A1c (%). Testing performed or reported by ~[facility], ~a Service of [facility], ~[address] [place] [phone]~ Cyndy Quiroga MD, Pharmaceutical Specialty Representative 09/12/2018 8:11 AM EST us Kevyn Nevarez MD LAB BLOOD ORDERABLES Final Resul t [email or web address] from Last 3 Months or Most Recently Relevant to Health Maintenance Insurance Medicaid [place] Care Teams Storage Architect Relationship Specialty Start Date End Date Name, MD Jon [address] [place] [phone] PCP - General Internal Medicine 04/09/22
--- OUTSIDE RECORDS SUMMARY | 2025-06-01 09:32 | XMS_ITS | Encounter Summary ---
Author Organization [facility] [place], Address [address] [place] [address] Phone Care Team Providers Care Quarrying Manager Name Role Phone Name, Jon RUIZ Primary Care Provider [phone] Encounter Details Date Type Department Care Team ([facility] Contact Info) Description 05/10/2024 Documentation Only [facility] [address] [place] [address] Etelvina Mcdaniel [address] [place] [address] Social History Tobacco Use Types [...] Upcoming Encounters Date Type Department Care Team ([facility] Contact Info) Description 06/19/2025 2:30 PM EST Office Visit [facility] [address] [place] [address] Kevyn Nevarez MD [address] [place] [address] [place] [address] documented as of this encounter Visit Diagnoses Not on filedocumented in this encounter Care Teams Quarrying Manager Relationship Specialty Start Date End Date Name, MD Jon [address] [place] [address] PCP - General Internal Medicine 04/09/22 documented as of this encounter
--- OUTSIDE RECORDS SUMMARY | 2025-06-01 09:32 | XMS_ITS | Encounter Summary ---
Author Organization [facility] Address [address] [place] [address] Phone Care Team Providers Care Shot Tube Machine Tender Name Role Phone Name, Jon RUIZ Primary Care Provider [phone] Encounter Details Date Type Department Care Team (Late Contact Info) Description 04/19/2023 Orders Only [facility] [address] [place] [address] Nicole Patterson PA [address] [place] [address] Stage 3a chronic kidney disease [...] Visit [facility] [address] [place] [address] Kevyn Nevarez MD [address] [facility] [address] [place] [address] documented as of this encounter Visit Diagnoses Diagnosis Stage 3a chronic kidney disease (HCC) Essential hypertension Type 2 diabetes mellitus without complication (HCC) documented in this encounter Care Teams Shot Tube Machine Tender Relationship Specialty Start Date End Date Name, MD Jon [address] [place] [address] PCP - General Internal Medicine 04/09/22 documented as of this encounter
--- OUTSIDE RECORDS SUMMARY | 2025-06-01 09:32 | XMS_ITS | Encounter Summary ---
Author Organization [facility] [place], Address [address] [place] [address] Phone Care Team Providers Care Collateral Analyst Name Role Phone Name, Jon RUIZ Primary Care Provider [phone] Encounter Details Date Type Department Care Team ([facility] Contact Info) Description 05/10/2023 Documentation Only [facility] [address] [place] [address] Kevyn Nevarez MD [address] [place] [address] [place] [address] Social History Tobacco Use Types [...] Visit [facility] [address] [place] [address] Kevyn Nevarez MD [address] [place] [address] [place] [address] documented as of this encounter Visit Diagnoses Not on filedocumented in this encounter Care Teams Collateral Analyst Relationship Specialty Start Date End Date Name, MD Jon [address] [place] [address] PCP - General Internal Medicine 04/09/22 documented as of this encounter
--- OUTSIDE RECORDS SUMMARY | 2025-06-01 09:32 | XMS_ITS | Encounter Summary ---
Author Organization [facility] Address [address] [facility] [address] [place] [address] Phone Care Team Providers Care Engineer Booster And Exhauster Name Role Phone Name, Jon RUIZ Primary Care Provider [phone] Encounter Details Date Type Department Care Team ([facility] Contact Info) Description 04/09/2022 Documentation Only [facility] [address] [place] [address] Name, MD Jon [address] [place] [address] Social History Tobacco Use Types Packs/Day Years [...] Upcoming Encounters Date Type Department Care Team ([facility] Contact Info) Description 06/19/2025 2:30 PM EST Office Visit [facility] [address] [place] [address] Kevyn Nevarez MD [address] [place] [address] [place] [address] documented as of this encounter Visit Diagnoses Not on filedocumented in this encounter Care Teams Engineer Booster And Exhauster Relationship Specialty Start Date End Date Name, MD Jon [address] [place], [place] [phone] PCP - General Internal Medicine 04/09/22 documented as of this encounter
--- OUTSIDE RECORDS SUMMARY | 2025-06-01 09:32 | XMS_ITS | Clinical Summary ---
Author Organization [employer] Address [address] [place] [address] Care Team Providers Care Exercise Science Internship Name Role Phone Name, Jon RUIZ Primary Care Provider [phone] Wendy Sage PharmD Unavailable [phone] Allergies Active Allergy Reactions Criticality Noted [...] TAKE 1 TABLET BY MOUTH EVERY DAY 023 Active Lancets (OneTouch Delica Plus [id number]) miscIndications: Type 2 diabetes mellitus without complications (HCC) USE DIRECTED TO TEST BLOOD SUGAR EVERY DAY 100 each 5 024 Active cholecalciferol (D3 Super Strength) 50 MCG (1999) capsuleIndicatio ns:Vitamin D deficiency TAKE 1 CAPSULE BY MOUTH AT BEDTIME 90 capsule 1 025 Active empagliflozin-li nagliptin (Glyxambi) 25-5 MGIndications:Ty pe 2 diabetes mellitus with diabetic nephropathy, without long-term current use of insulin (HCC) Take 1 tablet by mouth in the morning. 90 tablet 3 025 2025 Active Alcohol Swabs (Alcohol Prep) 70 % padsIndications: Type 2 diabetes mellitus with diabetic nephropathy, without long-term current use of insulin (HCC) Use twice daily, as directed 200 each 3 025 Active sildenafil (Viagra) 50 MG tablet TAKE 1 TABLET 1 HOUR BEFORE SEXUAL RELATIONS ONCE DAILY NEEDED. 10 tablet Active naloxone (Narcan) 4 mg/0.1 mL nasal sprayIndications :Long-term current use of opiate analgesic Administer 1 spray (4 mg) into affected nostril(s) if needed for opioid reversal. May repeat every 2-3 minutes if needed, alternating nostrils, until medical assistance becomes available. 2 each 3 025 2025 Active lisinopril-hydro CHLOROthiazide 20-12.5 MG tablet TAKE 1 TABLET BY MOUTH EVERY DAY 90 tablet 3 Active atorvastatin (Lipitor) 80 MG tablet TAKE 1 TABLET BY MOUTH EVERY DAY 90 tablet 3 Active traMADol (Ultram) 50 MG tabletIndication s:Chronic right shoulder pain Take 1 tablet (50 mg) by mouth every 8 (eight) hours if needed for severe pain for up to 28 days. Do not start before June 01, 2025. 84 tablet 025 2024 Active traMADol (Ultram) 50 MG tabletIndication s:Chronic right shoulder pain TAKE 1 TABLET BY MOUTH EVERY 8 HOURS NEEDED FOR SEVERE PAIN 84 tablet 025 2024 Discontinued(R eorder (will not trigger notification to Pharmacy)) Active Problems Problem Noted Date Diagnosed Date Long-term current use of opiate analgesic 2024 Osteoarthritis of knees, bilateral 01/23/2025 Abdominal aortic aneurysm 01/23/2025 History of right hip replacement 01/23/2025 NSVT (nonsustained ventricular tachycardia) ([facility] /HCC) 01/23/2025 Aneurysm 01/25/2024 Overview (01/25/2024): Calcific atherosclerotic changes [...] mellitus 09/15/2019 Stage 3a chronic kidney disease ([facility]) 2017 Overview (02/19/2023): Update for Diagnosis Load Vitamin D deficiency 09/09/2015 Type 2 diabetes mellitus without complication Obesity 09/09/2015 Mixed hyperlipidemia 09/09/2015 Gastroesophageal reflux disease without esophagi tis 09/09/2015 Essential hypertension 09/09/2015 Depressive disorder 09/09/2015 Arthropathy 09/09/2015 Encounters Date Type Department Care Team Description 05/31/2025 Refill [facility] [address] [place] [address] NameJon MD Chronic right shoulder pain 05/31/2025 Refill [facility] [address] [place] [address] Name, MD Jon Chronic right shoulder pain 05/24/2025 Telephone [facility] [address] [place] [address] AceiaWendy, PharmD 05/04/2025 9:30 AM EDT Telemedicine [facility] [address] [place] [address] Mariama Vega, ABDULKADIR Long-term current use of opiate analgesic 05/04/2025 Travel 05/01/2025 Refill [facility] [address] [place] [address] Gisselle Wheat NP Chronic right shoulder pain 04/23/2025 Orders Only GENERIC EXTERNAL DATA DEPARTMENT Provider, Generic External Data 04/13/2025 Refill [facility] [address] [place] [address] Jon Pérez MD 04/06/2025 Telephone [facility] [address] [place] [address] Esvin Carpenter HANNAH oct recalls 04/02/2025 Refill [facility] [address] [place] [address] Jon Pérez MD 03/14/2025 Refill [facility] [address] [place] [address] Jon Pérez MD Chronic right shoulder pain (Primary Dx) 03/09/2025 Telephone [facility] [address] [place] [address] Leila Alex RN 03/08/2025 Telephone [facility] [address] [place] [address] Jon Pérez MD Durable Medical Equipment 03/07/2025 11:15 AM EDT Office Visit [facility] [address] [place] [address] Jon Pérez MD Type 2 diabetes mellitus with diabetic nephropathy, without long-term current use of insulin ([facility]) (Primary Dx); Stage 3a chronic kidney disease (CMS/HCC); Venous insufficiency 03/07/2025 Travel 03/02/2025 10:00 AM EDT Telemedicine [address] [address] Mariama Vega, ABDULKADIR Long-term current use of opiate analgesic 03/02/2025 Refill [facility] [address] [place] [address] Mariama Vega, ABDULKADIR Long-term current use of opiate analgesic (Primary Dx) 03/02/2025 Travel from Last 3 Months Immunizations Immunization [...] Description 06/22/2025 11:00 AM EST Medication Management [facility] [address] [place] [address] Wendy aSge, PharmD [address] [place] [address] 07/02/2025 11:00 AM EST Office Visit [facility] [address] [place] [address] Name, MD Jon [facility] [place] [address] 07/27/2025 10:30 AM EST Telemedicine [facility] [place] [address] Mariama Vega, RN Health Maintenance Due Date Last Done Comments COVID-19 Vaccine ( season) 2025 05/26/2023, 06/02/2022, 12/25/2021, Additional history exists Influenza Vaccine (#1) 2025 , 05/25/2023, 06/01/2022, Additional history exists Diabetes: Hemoglobin A1C 04/25/2025 025, 09/25/2024, 04/25/2024, Additional history exists Eye Exam 07/21/2025 07/21/2023 Diabetes: Foot Exam 11/02/2025 11/02/2024, 11/02/2024, 11/02/2024, Additional history exists Lipid Panel 01/16/2026 01/16/2025, 100 09/2022, 10/07/2022, Additional history exists Alcohol/Substance Use [...] Procedure Name Priority Date/Time Associated Diagnosis Comments TSH W/REFLEX TO FT4 Routine 04/23/2025 1 1:25 AM EDT HEPATIC FUNCTION PANEL Routine 04/23/2025 11:25 AM EDT POCT GLUCOSE Routine 03/07/2025 11:17 AM EDT Type 2 diabetes mellitus with diabetic nephropathy, without long-term current use of insulin ([facility]) POCT GLYCATED HEMOGLOBIN, TOTAL Routine 01/23/2025 11:51 AM EDT Type 2 diabetes mellitus with diabetic nephropathy, without long-term current use of insulin ([facility]) LIPID PANEL, STANDARD Routine 01/16/2025 9:22 AM EDT from Last 3 Months or Most Recently Relevant to Health Maintenance Results * TSH with Reflex to Free T4 (04/23/2025 11:25 AM EDT) TSH reflex Free T4 1.40 0.32 - 4.0 uIU/mL [facility] 04/23/2025 11:2 5 AM EDT 04/23/2025 1:56 PM EDT Generic External Data Provider LAB BLOOD ORDERAB LES Final Result Performing Organization Address [facility] Co de Phone Number [facility] [address] [place] [phone] * (ABNORMAL) Hepatic Function Panel (04/23/2025 11:25 AM EDT) Bilirubin, Total 0.4 0.0 - 1.0 mg/dL [facility] Bilirubin, Direct 0.1 0.0 - 0.5 mg/dL [facility] Aspartate Amino Transferase 24 5 - 37 U/L [facility] Alanine Aminotransferase 18 0 - 40 U/L [facility] Total Protein 7.8 6.5 - 8.0 g/dL [facility] Albumin Level 4.3 3.5 - 5.0 g/dL [facility] Alkaline Phosphatase 121(H) 39 - 117 U/L [facility] 04/23/2025 11:2 5 AM EDT 04/23/2025 1:56 PM EDT Generic External Data Provider LAB BLOOD ORDERAB LES Final Result Performing Organization Address [facility] de Phone Number [facility] [address] [place] [phone] * POCT Glucose (03/07/2025 11:17 AM EDT) Glucose Blood, POC 112 60 - 200 mg/dL QC Media Lot # [id number] Lot# Expiration Date Blood Capillary blood specimen / Unknown 03/07/2025 11:17 AM EDT Jon Name MD POINT OF CARE TEST ENTER/EDIT OR DERABLES Final Result * (ABNORMAL) POCT HGB A1C (01/23/2025 11:51 AM EDT) Hemoglobin A1C 7.7(A) 4.0 - 6.0 % Blood 01/23/2025 11:5 1 AM EDT us Jon Pérez MD POINT OF CARE TEST ENTER/EDIT OR DERABLES Final Result * (ABNORMAL) Lipid Panel, Standard (01/16/2025 9:22 AM EDT) Triglycerides 67 <150 mg/dL [facility] Comment:Desirable Triglyceri de: less than 150 mg/dLBorderline High Triglyceride 150-199 mg/dLHigh Triglyceride: 200-499 mg/dLVery High Triglyceride: greater than or equal to 5OO mg/dL Cholesterol 118 <200 mg/dL [facility] Comment:Desirable Cholestero l: less than 200 mg/dLBorderline High Cholesterol: 200-239 mg/dLHigh Cholesterol: greater than 239 mg/dL LDL Cholesterol Calculated 66 <100 mg/dL [facility] Comment:Desirable LDL: less than 100 mg/dLNear Optimal/Above Optimal LDL: 110- 129 mg/dLBorderline High LDL: 130-159 mg/dLHigh LDL: 160-189 mg/dLVery High LDL: greater than or equal to 190 mg/dL HDL Cholesterol 39(L) >40 mg/dL [facility] Comment:Desirable HDL: great er than 40 mg/dL Note: This HDL assay may give artificially low results in patients with liver disease. 01/16/2025 9:22 AM EDT 01/16/2025 11:50 AM EDT us Jon Pérez MD LAB BLOOD ORDERABLES Final Resul t [facility] [address] [place] [address] [phone] from Last 3 Months or Most Recently Relevant to Health Maintenance Insurance [facility] Member Subscriber Plan / Payer (Ef fective 2024-Present) Name:Kt Mendiola Relation to Subscriber:Self Name:Kt Mendiola Payer ID:Not on file Group ID:Not on file Type:Medicaid Address: [address] [place] [id number] [place] [address] - [facility] LONGTERM OPTIONS (HMO D-SNP) Care Teams Exercise Science Internship Relationship Specialty Start Date End Date Name, MD Jon [address] [place] [phone] PCP - General Family Medicine 12/15/21 Wendy Sage PharmD [address] [place] [address] Pharmacist Internal Medicine 03/31/22
[2025-06-01 13:36] LABS: Microalbum/Creatinine Ratio Ur 225.0 ug/mg cr (<30)
== END 2025-06-01 08:56 | disposition home or self-care (01) ==
LOC: HO.HHCL 08:55
PROVIDERS: PCP Internal Medicine Geriatric Medicine; Visit Provider Internal Medicine Geriatric Medicine
DX: E11.22 Type 2 diabetes mellitus with diabetic chronic kidney disease (principal); N18.31 Chronic kidney disease, stage 3a
CPT/HCPCS: 82043; 82570

== ENCOUNTER 2025-06-15 10:36 | Outpatient (REF) | payer OTHER, SELFPAY ==
--- OUTSIDE RECORDS SUMMARY | 2025-06-15 12:02 | XMS_ITS | Encounter Summary ---
Author Organization [facility] [place], Address [address] [place] [address] Phone Care Team Providers Care Telesales Manager Name Role Phone Name, Jon RUIZ Primary Care Provider [phone] Encounter Details Date Type Department Care Team ([facility] Contact Info) Description 05/10/2024 Documentation Only [facility] [address] [place] [address] Etelvina Mcdaniel [address] [place] [address] Social History Tobacco Use Types [...] Department Care Team ([facility] Contact Info) Description 06/19/2025 2:30 PM EST Office Visit [facility] [address] [place] [address] Kevyn Nevarez MD [address] [place] [address] [place] [address] documented as of this encounter Visit Diagnoses Not on filedocumented in this encounter Care Teams Telesales Manager Relationship Specialty Start Date End Date Name, MD Jon [address] [place] [phone] PCP - General Internal Medicine 04/09/22 documented as of this encounter
--- OUTSIDE RECORDS SUMMARY | 2025-06-15 12:02 | XMS_ITS | Clinical Summary ---
Author Organization [facility] [place], Address [address] [place] [address] [place] [address] Phone Care Team Providers Care Client Portfolio Manager Name Role Phone Name, Jon RUIZ Primary Care Provider Allergies Active Allergy Reactions Criticality Noted Date [...] Visit [facility] [place], [address] [facility] [place] [address] Kevyn Nevarez MD [address] [facility] [place] [phone] Health Maintenance Due Date Last Done Comments [...] AM EST) Hemoglobin A1C 6.5(H) (4-6) % [place] [address] Comment: HEMOGLOBIN A1C(%) GLUCOSE CONTROL INDEX <6% EXCELLENT 6-7% VERY GOOD 7-8% GOOD 8-10% FAIR >10% POOR Hemoglobin (Hb) A1c testing is performed by Eduar Nanette-quant immunoassay. Any cause of shortened erythrocyte survival will reduce exposure of erythrocytes to glucose with a consequent decrease in Hb A1c (%). Testing performed or reported by ~[facility], ~a Service of [facility], ~[address] [place] [phone]~ Cyndy Quiroga MD, Stone Product Fabricator 09/12/2018 8:11 AM EST us Kevyn Nevarez MD LAB BLOOD ORDERABLES Final Resul t [id number] from Last 3 Months or Most Recently Relevant to Health Maintenance Insurance Medicaid [place] Care Teams Client Portfolio Manager Relationship Specialty Start Date End Date Name, MD Jon [address] [place] [phone] PCP - General Internal Medicine 04/09/22
--- OUTSIDE RECORDS SUMMARY | 2025-06-15 12:02 | XMS_ITS | Encounter Summary ---
Author Organization [facility] [place], Address [address] [place] [address] Phone Care Team Providers Care Leg Man Name Role Phone Name, Jon RUIZ Primary Care Provider Encounter Details Date Type Department Care Team ([facility] Contact Info) Description 11/04/2023 Documentation Only [facility] [address] [place] [address] Etelvina Mcdaniel [address] [place] [address] Social History Tobacco Use Types [...] Upcoming Encounters Date Type Department Care Team ([facility] Contact Info) Description 06/19/2025 2:30 PM EST Office Visit [facility] [address] [place] [address] Kevyn Nevarez MD [address] [place] [address] [place] [address] documented as of this encounter Visit Diagnoses Not on filedocumented in this encounter Care Teams Leg Man Relationship Specialty Start Date End Date Name, MD Jon [address] [place] [phone] PCP - General Internal Medicine 04/09/22 documented as of this encounter
--- OUTSIDE RECORDS SUMMARY | 2025-06-15 12:02 | XMS_ITS | Encounter Summary ---
Author Organization [facility] [place], Address [address] [place] [address] Phone Care Team Providers Care Pot Liner Name Role Phone Name, Jon RUIZ Primary Care Provider [phone] Encounter Details Date Type Department Care Team ([facility] Contact Info) Description 10/13/2022 Documentation Only [facility] [address] [place] [address] Nicole Patterson PA [address] [place] [address] [place] [address] Social History Tobacco Use Types [...] Visit [facility] [address] [place] [address] Kevyn Nevarez MD [address] [place] [address] [place] [address] documented as of this encounter Visit Diagnoses Not on filedocumented in this encounter Care Teams Pot Liner Relationship Specialty Start Date End Date Name, MD Jon [address] [place] [address] PCP - General Internal Medicine 04/09/22 documented as of this encounter
--- OUTSIDE RECORDS SUMMARY | 2025-06-15 12:02 | XMS_ITS | Encounter Summary ---
Author Organization [facility] Address [address] [facility] [address] [place] [address] Phone Care Team Providers Care Coat Feller Name Role Phone Name, Jon RUIZ Primary Care Provider [phone] Encounter Details Date Type Department Care Team ([facility] Contact Info) Description 04/09/2022 Documentation Only [facility] [address] [place] [address] Name, MD Jon [address] [place] [address] Social History Tobacco Use Types Packs/Day Years [...] Upcoming Encounters Date Type Department Care Team ([facility] Contact Info) Description 06/19/2025 2:30 PM EST Office Visit [facility] [address] [place] [address] Kevyn Nevarez MD [address] [place] [address] [place] [address] documented as of this encounter Visit Diagnoses Not on filedocumented in this encounter Care Teams Coat Feller Relationship Specialty Start Date End Date Name, MD Jon [address] [place], [place] [phone] PCP - General Internal Medicine 04/09/22 documented as of this encounter
--- OUTSIDE RECORDS SUMMARY | 2025-06-15 12:02 | XMS_ITS | Encounter Summary ---
Author Organization [facility] Address [address] [place] [address] Phone Care Team Providers Care Hooker Laster Name Role Phone Name, Jon RUIZ Primary Care Provider [phone] Encounter Details Date Type Department Care Team (Late Contact Info) Description 04/19/2023 Orders Only [facility] [address] [place] [address] Nicole Patterson PA [address] [place] [address] Stage 3a chronic kidney disease [...] Visit [facility] [address] [place] [address] Kevyn Nevarez MD [address] [facility] [address] [place] [address] documented as of this encounter Visit Diagnoses Diagnosis Stage 3a chronic kidney disease (HCC) Essential hypertension Type 2 diabetes mellitus without complication (HCC) documented in this encounter Care Teams Hooker Laster Relationship Specialty Start Date End Date Name, MD Jon [address] [place] [address] PCP - General Internal Medicine 04/09/22 documented as of this encounter
--- OUTSIDE RECORDS SUMMARY | 2025-06-15 12:02 | XMS_ITS | Encounter Summary ---
Author Organization [employer] Address [address] [facility] 7t [place] [address] Care Team Providers Care Environmental Services Assistant Name Role Phone Name, Jon RUIZ Primary Care Provider [phone] Wendy Sage PharmD Unavailable [phone] Reason for Visit * Reason Comments Med Refill Encounter Details Date Type Department Care Team ([facility] Contact Info) Description 03/02/2023 Refill [facility] [address] [place] [address] [phone] Name, MD Jon [address] [place] [address] Pain in right shoulder Social History Tobacco [...] Upcoming Encounters Date Type Department Care Team ([facility] Contact Info) Description 06/22/2025 11:00 AM EST Medication Management [address] [address] Wendy Sage PharmD [place], [place] 07/02/2025 11:00 AM EST Office Visit [address] [address] Name, MD Jon [place], [place] 07/27/2025 10:30 AM EST Telemedicine [address] [address] Mariama Vega RN documented as of this [...] shoulder documented in this encounter Care Teams Environmental Services Assistant Relationship Specialty Start Date End Date NameJon MD [address] [place] [address] PCP - General Family Medicine 12/15/21 Wendy Sage PharmD [address] [place] [address] Pharmacist Internal Medicine 03/31/22 documented as of this encounter
--- OUTSIDE RECORDS SUMMARY | 2025-06-15 12:02 | XMS_ITS | Encounter Summary ---
Author Organization [employer] Address [address] [facility] 7t [place] [address] Care Team Providers Care Quality Assurance Inspector Name Role Phone Name, Jon RUIZ Primary Care Provider Wendy Sage PharmD Unavailable Reason for Visit * Reason Comments Med Refill Encounter Details Date Type Department Care Team (Late st Contact Info) Description 02/09/2023 Refill [facility] [address] [place], [place] [phone] Name, MD Jon [address] [place] [address] Pain in right shoulder Social History Tobacco [...] Description 06/22/2025 11:00 AM EST Medication Management [facility] [address] [place] [address] Wendy Sage PharmD [address] [place] [address] 07/02/2025 11:00 AM EST Office Visit [address] [address] Name, MD Jon [address] [place] [address] 07/27/2025 10:30 AM EST Telemedicine [address] [address] Mariama Vega, ABDULKADIR documented as of this encounter Goals Goal Patient Goal Type Associated Problems Recent Progress Patient-Stated? Author Hemoglobin A1c < 7.5 Result Component 7.7(01/23/2025 11:51 AM EDT) No Wendy Sage PharmD documented as of this encounter Visit Diagnoses Diagnosis Pain in right shoulder documented in this encounter Care Teams Quality Assurance Inspector Relationship Specialty Start Date End Date Name, MD Jon [address] [place] [address] PCP - General Family Medicine 12/15/21 Wendy Sage PharmD [address] [place] [address] Pharmacist Internal Medicine 03/31/22 documented as of this encounter
--- OUTSIDE RECORDS SUMMARY | 2025-06-15 12:02 | XMS_ITS | Encounter Summary ---
Author Organization [facility] [place], Address [address] [place] [address] Phone Care Team Providers Care Umbrella Mender Name Role Phone Name, Jon RUIZ Primary Care Provider [phone] Encounter Details Date Type Department Care Team ([facility] Contact Info) Description 05/10/2023 Documentation Only [facility] [address] [place] [address] Kevyn Nevarez MD [address] [place] [address] [place] [address] Social History Tobacco Use Types [...] Visit [facility] [address] [place] [address] Kevyn Nevarez MD [address] [place] [address] [place] [address] documented as of this encounter Visit Diagnoses Not on filedocumented in this encounter Care Teams Umbrella Mender Relationship Specialty Start Date End Date Name, MD Jon [address] [place] [address] PCP - General Internal Medicine 04/09/22 documented as of this encounter
--- OUTSIDE RECORDS SUMMARY | 2025-06-15 12:02 | XMS_ITS | Encounter Summary ---
Author Organization [employer] Address [address] [facility] 7t [place] [address] Care Team Providers Care Call Center Operations Manager Name Role Phone Name, Jon RUIZ Primary Care Provider Wendy Sage PharmD Unavailable [phone] Reason for Visit * Reason Comments Med Refill Encounter Details Date Type Department Care Team ([facility] st Contact Info) Description 04/25/2024 Refill [facility] P[facility]S [address] [place], [place] [phone] Name, MD Jon [address] [place] [address] Social History Tobacco Use Types Packs/Day Years [...] Description 06/22/2025 11:00 AM EST Medication Management [address] [address] Wendy Sage, PharmD [address] [place] [address] 07/02/2025 11:00 AM EST Office Visit [address] [address] Name, MD Jon [address] [place] [address] 07/27/2025 10:30 AM EST Telemedicine [address] [address] Mariama Vega, ABDULKADIR documented as of this [...] documented as of this encounter Care Teams Call Center Operations Manager Relationship Specialty Start Date End Date Name, MD Jon [address] [place] [address] PCP - General Family Medicine 12/15/21 Wendy Sage PharmD [address] [place] [address] Pharmacist Internal Medicine 03/31/22 documented as of this encounter
--- OUTSIDE RECORDS SUMMARY | 2025-06-15 12:02 | XMS_ITS | Encounter Summary ---
Author Organization [employer] Address [address] [facility] 7t [place] [address] Care Team Providers Care Colliery Clerk Name Role Phone Name, Jon RUIZ Primary Care Provider [phone] Wendy Sage PharmD Unavailable [phone] Reason for Visit * Reason Comments Med Refill Encounter Details Date Type Department Care Team ([facility] st Contact Info) Description 06/12/2025 Refill [facility] [address] [place], [place] [phone] Name, MD Jon [address] [place] [address] Vitamin D deficiency Social History Tobacco Use Types Packs/Day Years [...] Description 06/22/2025 11:00 AM EST Medication Management [address] [address] Wendy Sage PharmD [address] [place] [address] 07/02/2025 11:00 AM EST Office Visit [address] [address] Name, MD Jon [address] [place] [address] 07/27/2025 10:30 AM EST Telemedicine [address] [address] Mariama Vega RN documented as of this encounter Goals Goal Patient Goal Type Associated Problems Recent Progress Patient-Stated? Author Hemoglobin A1c < 7.5 Result Component 7.7( 11:51 AM EDT) No Wendy Sage, PharmD Record your blood sugar as directed Result Component No Wendy Sage, PharmD Note: Alternating fasting & 2-hr postprandial. documented as of this encounter Visit Diagnoses Diagnosis Vitamin D deficiency documented in this encounter Additional Health Concerns Assessment Noted Time PHQ-9 Depression Total Score: 4 03/07/20 25 11:18 AM EDT documented as of this encounter Care Teams Colliery Clerk Relationship Specialty Start Date End Date Name, MD Jon [address] [place] [address] PCP - General Family Medicine 12/15/21 Wendy Sage, Nathan [address] [place] [address] Pharmacist Internal Medicine 03/31/22 documented as of this encounter
--- OUTSIDE RECORDS SUMMARY | 2025-06-15 12:02 | XMS_ITS | Clinical Summary ---
Author Organization [employer] Address [address] [facility] 7t [place] [address] Care Team Providers Care Frozen Foods Manager Name Role Phone Name, Jon RUIZ Primary Care Provider [phone] Wendy Sage PharmD Unavailable [phone] Allergies Active Allergy Reactions Criticality Noted [...] DAY 023 Active Lancets (OneTouch Delica Plus [id number]) miscIndications: Type 2 diabetes mellitus without complications (HCC) USE DIRECTED TO TEST BLOOD SUGAR EVERY DAY 100 each 5 024 Active empagliflozin-li nagliptin (Glyxambi) 25-5 MGIndications:Ty pe [...] BY MOUTH EVERY DAY 90 tablet 3 025 Active atorvastatin (Lipitor) 80 MG tablet TAKE 1 TABLET BY MOUTH EVERY DAY 90 tablet 3 025 Active traMADol (Ultram) 50 MG tabletIndication s:Chronic right shoulder pain Take 1 tablet (50 mg) by mouth every 8 (eight) hours if needed for severe pain for up to 28 days. Do not start before June 01, 2025. 84 tablet 025 2024 Active cholecalciferol (D3 Super Strength) 50 MCG (2000 UT) capsuleIndicatio ns:Vitamin D deficiency TAKE 1 CAPSULE BY MOUTH EVERY DAY AT BEDTIME 60 capsule 2 025 Active cholecalciferol (D3 Super Strength) 50 MCG (2000 UT) capsuleIndicatio ns:Vitamin D deficiency TAKE 1 CAPSULE BY MOUTH AT BEDTIME 90 capsule 1 025 2024 Discontinued traMADol (Ultram) 50 MG tabletIndication [...] hip replacement 01/23/2025 NSVT (nonsustained ventricular tachycardia) (CMS /HCC) 01/23/2025 Aneurysm 01/25/2024 Overview (01/25/2024): Calcific [...] mellitus 09/15/2019 Stage 3a chronic kidney disease (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 Encounters Date Type Department Care Team Description 06/12/2025 Refill [facility] [address] [place] [address] Name, MD Jon Vitamin D deficiency 06/05/2025 Telephone [facility] [address] [place] [address] NameJon MD Results 05/31/2025 Refill [facility] [address] [place] [address] NameJon MD Chronic right shoulder pain 05/31/2025 Refill [facility] [address] [place], [place] [phone] NameJon MD Chronic right shoulder pain 05/24/2025 Telephone [facility] [address] [place] [address] Wendy Sage, PharmD 05/04/2025 9:30 AM EDT Telemedicine [facility] [address] [place] [address] Mariama Vega RN Long-term current use of opiate analgesic 05/04/2025 Travel 05/01/2025 Refill [facility] [address] [place] [address] Gisselle Wheat NP Chronic right shoulder pain 04/23/2025 Orders Only GENERIC EXTERNAL DATA DEPARTMENT Provider, Generic External Data 04/13/2025 Refill [facility] [address] [place] [address] Jon Pérez MD 04/06/2025 Telephone [facility] [address] [place] [address] Esvin Carpenter MA oct recalls 04/02/2025 Refill [facility] [address] [place] [address] Name, MD Jon from Last 3 Months Immunizations Immunization Administration [...] Description 06/22/2025 11:00 AM EST Medication Management [address] [address] Wendy Sage, PharmD [address] [place] [address] 07/02/2025 11:00 AM EST Office Visit [address] [address] Name, MD Jon [address] [place] [address] 07/27/2025 10:30 AM EST Telemedicine [address] [address] Mariama Vega, ABDULKADIR Health Maintenance Due Date Last Done Comments COVID-19 Vaccine ( season) 2025 05/26/2023, 06/02/2022, 12/25/2021, Additional history exists Influenza Vaccine (#1) 2025 4, 05/25/2023, 06/01/2022, Additional history exists Diabetes: Hemoglobin [...] Procedure Name Priority Date/Time Associated Diagnosis Comments ALBUMIN, RANDOM URINE W/CREATININE Routine 06/01/2025 9:07 AM EDT Type 2 diabetes mellitus with diabetic nephropathy, without long-term current use of insulin (HCC) Stage 3a chronic kidney disease (CMS/HCC) (HCC) TSH W/REFLEX TO FT4 Routine 04/23/2025 1 1:25 AM EDT HEPATIC FUNCTION PANEL Routine 04/23/2025 11:25 AM EDT POCT GLYCATED HEMOGLOBIN, TOTAL Routine 01/23/2025 11:51 AM EDT Type 2 diabetes mellitus with diabetic nephropathy, without long-term current use of insulin ([facility]/HCC) LIPID PANEL, STANDARD Routine 01/16/2025 9:22 AM EDT from Last 3 Months or Most Recently Relevant to Health Maintenance Results * (ABNORMAL) Albumin, Random Urine W/Creatinine (06/01/2025 9:07 AM EDT) Creatinine, Urine 100.00 mg/dL [facility] Microalbumin Urine 225.0 mg/L [facility] Microalbum Creatinine Ratio Ur 225.0(H) <30 ug/mg cr [facility] Comment:Albumin/Creatinine R atio Reference Ranges: Normal: < 30 ug/mg creatinine Microalbuminuria: 30 - 300 ug/mg creatinineClinical Albuminuria: > 300 ug/mg creatinine Urine (Urine, Random) 06/01/2025 9:07 AM EDT 06/01/2025 11:19 AM EDT us Jon Pérez MD LAB URINE ORDERABLES Final Resul t [facility] [address] [place] [phone] * TSH with Reflex to Free T4 (04/23/2025 11:25 AM EDT) TSH reflex Free T4 1.40 0.32 - 4.0 uIU/mL [facility] 04/23/2025 11:2 5 AM EDT 04/23/2025 1:56 PM EDT Generic External Data Provider LAB BLOOD ORDERAB LES Final Result Performing Organization Address City/[facility]/ZIP Co de Phone Number [facility] [address] [place] [phone] * (ABNORMAL) Hepatic Function Panel (04/23/2025 11:25 AM EDT) Bilirubin, Total 0.4 0.0 - 1.0 mg/dL [facility] Bilirubin, Direct 0.1 0.0 - 0.5 mg/dL [facility] Aspartate Amino Transferase 24 5 - 37 U/L [facility] Alanine Aminotransferase 18 0 - 40 U/L [facility] Total Protein 7.8 6.5 - 8.0 g/dL [facility] Albumin Level 4.3 3.5 - 5.0 g/dL [facility] Alkaline Phosphatase 121(H) 39 - 117 U/L [facility] 04/23/2025 11:2 5 AM EDT 04/23/2025 1:56 PM EDT Generic External Data Provider LAB BLOOD ORDERAB LES Final Result Performing Organization Address City/[facility]/ZIP Co de Phone Number [facility] [address] [place] [phone] * (ABNORMAL) POCT HGB A1C (01/23/2025 11:51 AM EDT) Hemoglobin A1C 7.7(A) 4.0 - 6.0 % Blood 01/23/2025 11:5 1 AM EDT us Jon Name POINT OF CARE TEST ENTER/EDIT OR DERABLES Final Result * (ABNORMAL) Lipid Panel, Standard (01/16/2025 9:22 AM EDT) Triglycerides 67 <150 mg/dL [facility] Comment:Desirable Triglyceri de: less than 150 mg/dLBorderline High Triglyceride 150-199 mg/dLHigh Triglyceride: 200-499 mg/dLVery High Triglyceride: greater than or equal to 5OO mg/dL Cholesterol 118 <200 mg/dL [facility] Comment:Desirable Cholestero l: less than 200 mg/dLBorderline High Cholesterol: 200-239 mg/dLHigh Cholesterol: greater than 239 mg/dL LDL Cholesterol Calculated 66 <100 mg/dL [facility] Comment:Desirable LDL: less than 100 mg/dLNear Optimal/Above Optimal LDL: 110- 129 mg/dLBorderline High LDL: 130-159 mg/dLHigh LDL: 160-189 mg/dLVery High LDL: greater than or equal to 190 mg/dL HDL Cholesterol 39(L) >40 mg/dL [facility] Comment:Desirable HDL: great er than 40 mg/dL Note: This HDL assay may give artificially low results in patients with liver disease. 01/16/2025 9:22 AM EDT 01/16/2025 11:50 AM EDT us Jon Pérez MD LAB BLOOD ORDERABLES Final Resul t [facility] [address] [place] [address] [phone] from Last 3 Months or Most Recently Relevant to Health Maintenance Insurance [facility] STANDARD [facility] [employer]ED [employer] (HMO D-SNP) apt [address] [place] [phone] Care Teams Frozen Foods Manager Relationship Specialty Start Date End Date Name, MD Jon [address] [place] [address] PCP - General Family Medicine 12/15/21 Wendy Sage PharmD [address] [place] [address] Pharmacist Internal Medicine 03/31/22
== END 2025-06-15 10:37 | disposition home or self-care (01) ==
LOC: HO.RESP 10:36
PROVIDERS: PCP Internal Medicine Geriatric Medicine; Visit Provider Internal Medicine Cardiovascular Disease
DX: Z13.89 Encounter for screening for other disorder (principal)

== ENCOUNTER 2025-07-03 10:31 | Outpatient (REF) | payer OTHER, SELFPAY ==
--- NOTE | ~2025-07-03 | XR_ITS ---
EXAMINATION: XR HIP, RIGHT CLINICAL INFORMATION: RT HIP PAIN, HX OF HIP SURGERY COMPARISON: X-ray 10/22/2023, CT abdomen and pelvis 01/19/2024 TECHNIQUE: Two views of the right hip. FINDINGS: Postoperative changes related to prior hip arthroplasty. There is interval change in the appearance of the arthroplasty components as compared to the prior radiograph. The acetabular component of the prosthesis is rotated medially, new as compared to the prior study. There is one acetabular screw present, representing an interval change as compared to prior radiograph which demonstrated 3 screws. The space between the acetabular component of prosthesis and the underlying underlying bony acetabulum, is increased from the prior. There is sclerosis of the bony acetabulum, increased from previous. There are punctate and amorphous densities within the joint space, increased from previous.. There are calcification/ossification lateral to the greater trochanter, new/increased from previous. No suspicious perihardware lucency along the stem of the femoral component of the prosthesis. No acute fractures identified. XR/XR hip RT min 2V IMPRESSION: Status post total hip arthroplasty. Interval change in the hardware, and in the positioning of the acetabular component of the prosthesis. These findings could represent sequela of interval surgery, sequela of loosening/hardware failure. Correlate with surgical history. Extensive punctate and amorphous densities within the joint space, of uncertain etiology. Differential consideration include small particle disease. Electronically signed by: Rudi Maguire MD 07/03/2025 12:45 PM ELOY
== END 2025-07-03 10:32 | disposition home or self-care (01) ==
LOC: HO.HHCX 10:31
PROVIDERS: PCP Internal Medicine Geriatric Medicine; Visit Provider Internal Medicine Geriatric Medicine
DX: M25.551 Pain in right hip (principal); Z96.641 Presence of right artificial hip joint
CPT/HCPCS: 73502

== ENCOUNTER → 2025-07-03 10:53 | Outpatient (BNV) | payer OTHER, SELFPAY | PROVIDERS: PCP Internal Medicine Geriatric Medicine; Visit Provider Radiology Diagnostic Ultrasound | DX: M25.551 Pain in right hip (principal); Z96.641 Presence of right artificial hip joint | CPT/HCPCS: 73502 ==

== ENCOUNTER 2025-08-02 08:04 | Outpatient (REF) | payer OTHER, SELFPAY ==
--- NOTE | ~2025-08-02 | XR_ITS ---
EXAMINATION: XR PELVIS CLINICAL INFORMATION: M25.559 - Pain in unspecified hip COMPARISON: November 22, [address] abdomen pelvis dated January 19, 2024. TECHNIQUE: AP view of the pelvis. FINDINGS: Metallic prosthesis with an acetabular and femoral component demonstrated deformity of the osseous structures of the right acetabulum with loosening and heterotopic bone formation. The femoral component is well-seated in the osseous structures without gross loosening. There is a mild malalignment of the metallic femoral component in into the acetabular prosthesis. Mild degenerative changes in the left hip without acute fracture or dislocation. XR/XR pelvis 1-2V IMPRESSION: Subluxed right hip prosthesis associated deformity of the osseous acetabulum and loosening. Electronically signed by: Ezequiel Aguilar MD 08/02/2025 10:25 AM [facility]
--- OUTSIDE RECORDS SUMMARY | 2025-08-02 08:09 | XMS_ITS | Clinical Summary ---
Author Organization [employer] Address [address] [facility] 7[address] [place] [address] Care Team Providers Care Bus System Operator Name Role Phone Name, Jon RUIZ Primary Care Provider [phone] Allergies Active Allergy Reactions Criticality Noted Date [...] DAY 023 Active Lancets (OneTouch Delica Plus [id number]) miscIndications: Type 2 diabetes mellitus without complications (HCC) USE DIRECTED TO TEST BLOOD SUGAR EVERY DAY 100 each 5 024 Active Alcohol Swabs (Alcohol Prep) 70 % padsIndications: Type 2 diabetes mellitus with diabetic nephropathy, without long-term current use of insulin (HCC) Use twice daily, as directed 200 each 3 025 Active sildenafil (Viagra) 50 MG tablet TAKE 1 TABLET 1 HOUR BEFORE SEXUAL RELATIONS ONCE DAILY NEEDED. 10 tablet 025 Active naloxone (Narcan) 4 mg/0.1 mL nasal [...] BY MOUTH EVERY DAY 90 tablet 3 5 11:45 AM EST Active cholecalciferol (D3 Super Strength) 50 MCG (2000 UT) capsuleIndicatio ns:Vitamin D deficiency TAKE 1 CAPSULE BY MOUTH EVERY DAY AT BEDTIME 60 capsule 2 5 10:33 AM EST Active empagliflozin-li nagliptin (Glyxambi) 25-5 MGIndications:Ty pe 2 diabetes mellitus with diabetic nephropathy, without long-term current use of insulin ([facility]) Take 1 tablet by mouth in the morning. 90 tablet 3 025 2025 Active traMADol (Ultram) 50 MG tabletIndication s:Chronic right shoulder pain Take 1 tablet (50 mg) by mouth every 8 (eight) hours if needed for severe pain for up to 28 days. Do not start before July 27, 2025. 84 tablet 5 11:47 AM EST 025 2025 Active traMADol (Ultram) 50 MG tabletIndication s:Chronic right shoulder pain TAKE 1 TABLET BY MOUTH EVERY 8 HOURS NEEDED FOR SEVERE PAIN FOR UP TO 28 DAYS 84 tablet 5 10:33 AM EST 025 2024 Discontinued(R eorder (will not trigger notification to Pharmacy)) Active Problems Problem Noted Date Diagnosed Date Long-term current use of opiate analgesic 2024 Osteoarthritis of knees, bilateral 01/23/2025 Abdominal aortic aneurysm 01/23/2025 History of right hip replacement 01/23/2025 NSVT (nonsustained ventricular tachycardia) ([facility]) 01/23/2025 Aneurysm 01/25/2024 Overview (01/25/2024): Calcific atherosclerotic [...] EDT): Updated referral to cardiology Diabetic nephropathy associrenu leigh with type 2 diabetes mellitus 09/15/2019 Stage 3a chronic kidney disease ([facility]) 2017 Overview (02/19/2023): Update for Diagnosis Load Vitamin D deficiency 09/09/2015 Type 2 diabetes mellitus without complication Obesity 09/09/2015 Mixed hyperlipidemia 09/09/2015 Gastroesophageal reflux disease without esophagi tis 09/09/2015 Essential hypertension 09/09/2015 Depressive disorder 09/09/2015 Arthropathy 09/09/2015 Encounters Date Type Department Care Team Description 08/01/2025 Telephone [facility] [place] [address] Name, MD Jon 07/30/2025 Telephone [facility] [place] [address] Name, MD Jon Durable Medical Equipment 07/27/2025 10:30 AM EST Telemedicine [facility] [place] [address] Mariama Vega, RN Long-term current use of opiate analgesic 07/27/2025 Telephone [facility] [place] [address] Mariama Vega, RN BPI Scoring 07/27/2025 Travel 07/25/2025 Refill [facility] [place] [phone] Mariama Vega, trust and estates attorney right shoulder pain 07/02/2025 11:00 AM EST Office Visit [facility] [address] [place] [address] Jon Pérez MD Type 2 diabetes mellitus with diabetic nephropathy, without long-term current use of insulin (HCC) (Primary Dx); Lateral pain of right hip; History of right hip replacement 07/02/2025 Travel 06/27/2025 Refill [facility] [address] [place] [address] Gisselle Wheat NP Chronic right shoulder pain 06/22/2025 Travel 06/12/2025 Refill [facility] [address] [place] [address] Jon Pérez MD Vitamin D deficiency 06/05/[address] [address] Jon Pérez MD Results 05/31/2025 Refill [facility] [address] [place] [address] Jon Pérez MD Chronic right shoulder pain 05/31/2025 Refill [facility] [address] [place] [address] Jon Pérez MD Chronic right shoulder pain 05/24/[address] [address] Wendy Sage, PharmD 05/04/2025 9:30 AM EDT Telemedicine [address] [address] Mariama Vega, RN Long-term current use of opiate analgesic 05/04/2025 Travel from Last 3 Months Immunizations Immunization Administration Dates Next Due Hep B, adult 09/03/2011,03/23/2011,02/20/2011 Influenza High-dose Quadriva lent Preservative Free 05/25/2023,06/01/2022,05/19/2021 Influenza injectable quadriv alent preservative free 07/15/2018,08/26/2016 Influenza, High Dose Seasona l, Preservative Free 06/22/2025,05/01/2024,05/01/2019,05/03 Influenza, IIV3, injectable 05/24/2014, 1 Influenza, Split (incl. thang fied surface antigen) 06/13/2013,04/14/2012 Moderna Covid-19 Vaccine 12+ 12/25/2021, 06/16/2021,10/25/2020,09/27 Pfizer Covid-19 Vaccine 12+ 06/22/2025, 3 Pfizer Covid-19 Vaccine 12+ Bivalent 06/02/2022 Pneumococcal [...] your housing situation today? I have michael mark 03/07/[address] you li [...] Sign Reading Time Taken Comments Blood Pressure 132/72 07/02/2025 11:12 AM EST Pulse 67 07/02/2025 11:12 AM EST Temperature 36.3 C (97.4 F) 07/02/2025 11:12 AM EST Respiratory Rate 18 07/02/2025 11:12 AM EST Oxygen Saturation 98% 07/02/2025 11:12 AM EST Inhaled Oxygen Concentration - - Weight 82.2 kg (181 lb 3.2 oz) 07/02/2025 11:12 AM EST Height 162.6 cm (5' 4 ) 07/02/2025 11:12 AM EST Body Mass Index 31.1 07/02/2025 11:12 AM EST Plan of Treatment Upcoming Encounters Date Type Department Care Team (Late st Contact Info) Description 10/03/2025 11:15 AM EST Office Visit [facility] [address] [place] [address] Name, MD Jon [address] [place] [phone] 11/02/2025 9:00 AM EDT Telemedicine [facility] [address] [place] [phone] Mariama Vega, ABDULKADIR Health Maintenance Due Date Last Done Comments Eye Exam 07/21/2025 07/21/2023 Diabetes: Hemoglobin A1C 09/22/2025 025, 01/23/2025, 09/25/2024, Additional history exists Diabetes: Foot Exam 11/02/2025 11/02/2024, 11/02/2024, 11/02/2024, Additional history exists COVID-19 Vaccine ( season) 2025 06/22/2025, 05/26/2023, 06/02/2022, Additional history exists Lipid Panel 01/16/2026 01/16/2025, 09/2022, 10/07/2022, Additional history exists Alcohol/Substance Use Screening 03/07/2026 03/07/2025 Depression Screening 03/07/2026 03/07/2025, 03/07/20 25 SDOH Screening 03/07/2026 03/07/2025 Tobacco Screening 07/02/2026 07/02/2025 DTaP/Tdap/Td Vaccines (3 - Td or Tdap) 05/19/2031 05/19/2021, 12/11/2010, 03/03/2004 Hepatitis B Vaccines Completed 09/03/2011, 03/23/2011, 02/20/2011 Zoster Vaccines Completed 07/07/2022, 03/16, 03/29/2015 Pneumococcal Vaccine: 50+ Years Completed 04/20/2023, 12/13/2015, 02/05/2010 RSV Patients and Patients Aged 60 years or older Completed 07/26/2023 Influenza Vaccine Completed 06/22/2025, , 05/25/2023, Additional history exists HIB Vaccines Aged Out No longer eligi [...] Author Hemoglobin A1c < 7.5 Result Component 7.1( 5 11:26 AM EST) No Wendy Sage PharmD Record your blood sugar as directed Result Component No Wendy Sage PharmD Note: Alternating fasting & 2-hr postprandial. Help patients manage their type 2 diabetes Care Plan Help patients manage their type 2 diabetes No Mariama Vega RN Weekly blood pressure task Care Plan Weekly blood pressure task No Mariama Vega RN Help patients manage their type 2 diabetes Care Plan Help patients manage their type 2 diabetes No Mariama Vega RN Patient has chronic kidney disease Care Plan Patient has chronic kidney disease No Mariama Vega RN Weekly blood pressure task Care Plan Weekly blood pressure task No Mariama Vega RN Patient has chronic kidney disease Care Plan Patient has chronic kidney disease No Mariama Vega RN Weekly blood pressure task Care Plan Weekly blood pressure task No Esvin Carpenter [place] Weekly blood pressure task Care Plan Weekly blood pressure task No Carpenter, [facility] [place] Patient has chronic kidney disease Care Plan Patient has chronic kidney disease No CarpenterEsvin peters [place] Patient has chronic kidney disease Care Plan Patient has chronic kidney disease No CarpenterEsvin peters [place] Weekly blood pressure task Care Plan Weekly blood pressure task No Mariama Vega RN Weekly blood pressure task Care Plan Weekly blood pressure task No Mariama Vega RN Patient has chronic kidney disease Care Plan Patient has chronic kidney disease No Mariama Vega RN Patient has chronic kidney disease Care Plan Patient has chronic kidney disease No Mariama Vega RN Weekly blood pressure task Care Plan Weekly blood pressure task No Linda Del Valle Weekly blood pressure task Care Plan Weekly blood pressure task No Elliot Del Valleessa Patient has chronic kidney disease Care Plan Patient has chronic kidney disease No Elliot Del Valleessa Patient has chronic kidney disease Care Plan Patient has chronic kidney disease No Aguila Del Vallea Weekly blood pressure task Care Plan Weekly blood pressure task No Mariama Vega RN Weekly blood pressure task Care Plan Weekly blood pressure task No Mariama Vega RN Patient has chronic kidney disease Care Plan Patient has chronic kidney disease No Mariama Vega RN Patient has chronic kidney disease Care Plan Patient has chronic kidney disease No Mariama Vega RN Weekly blood pressure task Care Plan Weekly blood pressure task No Mariama Vega RN Weekly blood pressure task Care Plan Weekly blood pressure task No Mariama Vega RN Patient has chronic kidney disease Care Plan Patient has chronic kidney disease No Mariama Vega RN Patient has chronic kidney disease Care Plan Patient has chronic kidney disease No Mariama Vega RN Weekly blood pressure task Care Plan Weekly blood pressure task No Ileana Hill Weekly blood pressure task Care Plan Weekly blood pressure task No YayauiIleana anglin Patient has chronic kidney disease Care Plan Patient has chronic kidney disease No YayauiIleana anglin Patient has chronic kidney disease Care Plan Patient has chronic kidney disease No Ileana Hill Weekly blood pressure task Care Plan Weekly blood pressure task DeloitJon Pérez MD Weekly blood pressure task Care Plan Weekly blood pressure task DeloitJon Pérez MD Patient has chronic kidney disease Care Plan Patient has chronic kidney disease DeloitJon Pérez MD Patient has chronic kidney disease Care Plan Patient has chronic kidney disease DeloitJon Pérez MD Weekly blood pressure task Care Plan Weekly blood pressure task No Iesha Jamison RN Weekly blood pressure task Care Plan Weekly blood pressure task No Iesha Jamison RN Patient has chronic kidney disease Care Plan Patient has chronic kidney disease No Iesha Jamison RN Patient has chronic kidney disease Care Plan Patient has chronic kidney disease No Iesha Jamison RN Procedures Procedure Name Priority Date/Time Associated Diagnosis Comments XR HIP 2 OR 3 VIEWS RIGHT Routine 07/03/2025 10:53 AM EST Lateral pain of right hip History of right hip replacement POCT GLUCOSE Routine 07/02/2025 11:13 AM EST Type 2 diabetes mellitus with diabetic nephropathy, without long-term current use of insulin (HCC) POCT GLYCATED HEMOGLOBIN, TOTAL Routine 06/22/2025 11:26 AM EST Type 2 diabetes mellitus with diabetic nephropathy, without long-term current use of insulin (HCC) ALBUMIN, RANDOM URINE W/CREATININE Routine 06/01/2025 9:07 AM EDT Type 2 diabetes mellitus with diabetic nephropathy, without long-term current use of insulin (HCC) Stage 3a chronic kidney disease (CMS/HCC) (HCC) LIPID PANEL, STANDARD Routine 01/16/2025 9:22 AM EDT from Last 3 Months or Most Recently Relevant to Health Maintenance Results * XR Hip 2 or 3 Views Right (07/03/2025 10:53 AM EST) Anatomical Region Laterality Modality Lower Extremities, Hip Right Radiograp hic Imaging 07/03/2025 10:5 3 AM EST Narrative 07/03/2025 12:48 PM EST [address] [address] XRay Report Signed Patient: Kt Mendiola MR#: [id number] : 1945 Acct:[id number] Age/Sex: 79 / M ADM Date: 07/03/25 Loc: HO.HHCX Attending Dr: Jon Pérez MD Ordering Physician: Jon Pérez MD Date of Service: 07/03/25 Procedure(s): XR hip RT min 2V Accession Number(s): [id number] cc: Jon Pérez MD Reason for Exam: RT HIP PAIN, HX OF HIP SURGERY EXAMINATION: XR HIP, RIGHT CLINICAL INFORMATION: RT HIP PAIN, HX OF HIP SURGERY COMPARISON: X-ray 10/22/2023, CT abdomen and pelvis 01/19/2024 TECHNIQUE: Two views of the right hip. FINDINGS: Postoperative changes related to prior hip arthroplasty. There is interval change in the appearance of the arthroplasty components as compared to the prior radiograph. The acetabular component of the prosthesis is rotated medially, new as compared to the prior study. There is one acetabular screw present, representing an interval change as compared to prior radiograph which demonstrated 3 screws. The space between the acetabular component of prosthesis and the underlying underlying bony acetabulum, is increased from the prior. There is sclerosis of the bony acetabulum, increased from previous. There are punctate and amorphous densities within the joint space, increased from previous.. There are calcification/ossification lateral to the greater trochanter, new/increased from previous. No suspicious perihardware lucency along the stem of the femoral component of the prosthesis. No acute fractures identified. XR/XR hip RT min 2V IMPRESSION: Status post total hip arthroplasty. Interval change in the hardware, and in the positioning of the acetabular component of the prosthesis. These findings could represent sequela of interval surgery, sequela of loosening/hardware failure. Correlate with surgical history. Extensive punctate and amorphous densities within the joint space, of uncertain etiology. Differential consideration include small particle disease. Electronically signed by: Rudi Maguire MD 07/03/2025 12:45 PM [facility] Dictated By: Rudi Maguire MD Signed By: <Electronically signed by Rudi Maguire MD in OV> 07/03/25 1245 DD/ 1053 TD/TT: 07/03/25 1055 Lockstitch Coat Joiner: MARIE Procedure Note Donotuseinterpreter, Image - 07/03/[address] [address] XRay Report Signed Patient: Kt MendiolaMR#: [id number] : 5Acct:[id number] Age/Sex: 79 / MADM Date: 07/03/25 Loc: HO.HHCX Attending Dr: Jon Pérez MD Ordering Physician: Jon Pérez MD Date of Service: 07/03/25 Procedure(s): XR hip RT min 2V Accession Number(s): [id number] cc: Jon Pérez MD Reason for Exam: RT HIP PAIN, HX OF HIP SURGERY EXAMINATION: XR HIP, RIGHT CLINICAL INFORMATION: RT HIP PAIN, HX OF HIP SURGERY COMPARISON: X-ray 10/22/2023, CT abdomen and pelvis 01/19/2024 TECHNIQUE: Two views of the right hip. FINDINGS: Postoperative changes related to prior hip arthroplasty. There is interval change in the appearance of the arthroplasty components as compared to the prior radiograph. The acetabular component of the prosthesis is rotated medially, new as compared to the prior study. There is one acetabular screw present, representing an interval change as compared to prior radiograph which demonstrated 3 screws. The space between the acetabular component of prosthesis and the underlying underlying bony acetabulum, is increased from the prior. There is sclerosis of the bony acetabulum, increased from previous. There are punctate and amorphous densities within the joint space, increased from previous.. There are calcification/ossification lateral to the greater trochanter, new/increased from previous. No suspicious perihardware lucency along the stem of the femoral component of the prosthesis. No acute fractures identified. XR/XR hip RT min 2V IMPRESSION: Status post total hip arthroplasty. Interval change in the hardware, and in the positioning of the acetabular component of the prosthesis. These findings could represent sequela of interval surgery, sequela of loosening/hardware failure. Correlate with surgical history. Extensive punctate and amorphous densities within the joint space, of uncertain etiology. Differential consideration include small particle disease. Electronically signed by: Rudi Maguire MD 07/03/2025 12:45 PM EST Dictated By: Rudi Maguire MD Signed By: <Electronically signed by Rudi Maguire MD in OV> 07/03/25 1245 DD/ 1053 TD/TT: 07/03/25 1055 Lockstitch Coat Joiner: HB us Jon Pérez MD IMG XR PROCEDURES Final Result * POCT Glucose (07/02/2025 11:13 AM EST) Glucose Blood, POC 115 60 - 200 mg/dL QC Media Lot # [id number] Lot# Expiration Date Blood Capillary blood specimen / Unknown 07/02/2025 11:13 AM EST us Jon Pérez MD POINT OF CARE TEST ENTER/EDIT OR DERABLES Final Result * (ABNORMAL) POCT Hgb A1c (06/22/2025 11:26 AM EST) Hemoglobin A1C 7.1(A) 4.0 - 5.7 % Blood 06/22/2025 11:2 6 AM EST us Jon Pérez MD POINT OF CARE TEST ENTER/EDIT OR DERABLES Final Result * (ABNORMAL) Albumin, Random Urine W/Creatinine (06/01/2025 9:07 AM EDT) Creatinine, Urine 100.00 mg/dL [facility] Microalbumin Urine 225.0 mg/L H [facility] Microalbum Creatinine Ratio Ur 225.0(H) <30 ug/mg cr [facility] Comment:Albumin/Creatinine R atio Reference Ranges: Normal: < 30 ug/mg creatinine Microalbuminuria: 30 - 300 ug/mg creatinineClinical Albuminuria: > 300 ug/mg creatinine Urine (Urine, Random) 06/01/2025 9:07 AM EDT 06/01/2025 11:19 AM EDT us Jon Pérez MD LAB URINE ORDERABLES Final Resul t Performing Organization Address City/State/[facility] Co de Phone Number [facility] [address] [place] [phone] * (ABNORMAL) Lipid Panel, Standard (01/16/2025 9:22 AM EDT) Triglycerides 67 <150 mg/dL [facility] Comment:Desirable Triglyceri de: less [...] 190 mg/dL HDL Cholesterol 39(L) >40 mg/dL [facility] Comment:Desirable HDL: great er than 40 mg/dL Note: This HDL assay may give artificially low results in patients with liver disease. 01/16/2025 9:22 AM EDT 01/16/2025 11:50 AM EDT us Jon Pérez MD LAB BLOOD ORDERABLES Final Resul t [facility] [address] [place] [address] [phone] from Last 3 Months or Most Recently Relevant to Health Maintenance Additional Health Concerns Active Problems Noted Date Diagnosed Date Help patients manage their type 2 diabetes 06/28 Weekly blood pressure task 06/28/2025 Help patients manage their type 2 diabetes 06/28 Patient has chronic kidney disease 06/28/2025 Weekly blood pressure task 06/28/2025 Patient has chronic kidney disease 06/28/2025 Weekly blood pressure task 07/02/2025 Weekly blood pressure task 07/02/2025 Patient has chronic kidney disease 07/02/2025 Patient has chronic kidney disease 07/02/2025 Weekly blood pressure task 07/17/2025 Weekly blood pressure task 07/17/2025 Patient has chronic kidney disease 07/17/2025 Patient has chronic kidney disease 07/17/2025 Weekly blood pressure task 07/20/2025 Weekly blood pressure task 07/20/2025 Patient has chronic kidney disease 07/20/2025 Patient has chronic kidney disease 07/20/2025 Weekly blood pressure task 07/25/2025 Weekly blood pressure task 07/25/2025 Patient has chronic kidney disease 07/25/2025 Patient has chronic kidney disease 07/25/2025 Weekly blood pressure task 07/27/2025 Weekly blood pressure task 07/27/2025 Patient has chronic kidney disease 07/27/2025 Patient has chronic kidney disease 07/27/2025 Weekly blood pressure task 07/30/2025 Weekly blood pressure task 07/30/2025 Patient has chronic kidney disease 07/30/2025 Patient has chronic kidney disease 07/30/2025 Weekly blood pressure task 08/01/2025 Weekly blood pressure task 08/01/2025 Patient has chronic kidney disease 08/01/2025 Patient has chronic kidney disease 08/01/2025 Weekly blood pressure task 08/01/2025 Weekly blood pressure task 08/01/2025 Patient has chronic kidney disease 08/01/2025 Patient has chronic kidney disease 08/01/2025 Insurance [facility] STANDARD [facility] [place] [employer] (HMO D-SNP) Care Teams Bus System Operator Relationship Specialty Start Date End Date Name, MD Jon [address] [place] [address] PCP - General Family Medicine 12/15/21
--- OUTSIDE RECORDS SUMMARY | 2025-08-02 08:09 | XMS_ITS | Encounter Summary ---
Author Organization [facility] Address [address] [place] [address] Phone Care Team Providers Care Specification Consultant Name Role Phone Name, Jon RUIZ Primary Care Provider [phone] Encounter Details Date Type Department Care Team ([facility] Contact Info) Description 04/09/2022 Documentation Only [facility] [address] [place] [address] Name, MD Jon [address] [place] [address] Social History Tobacco Use Types Packs/Day Years Used Date Smoking Tobacco: Former Cigarettes 3 Q uit: 02/29/1980 Smokeless Tobacco: Former Quit: [...] Upcoming Encounters Date Type Department Care Team ([facility] Contact Info) Description 07/02/2026 1:45 PM EST Office Visit [facility] [address] [place] [address] Kevyn Nevarez MD [address] [place] [address] [place] [address] documented as of this encounter Visit Diagnoses Not on filedocumented in this encounter Care Teams Specification Consultant Relationship Specialty Start Date End Date Name, MD Jon [address] [place] [address] PCP - General Internal Medicine 04/09/22 documented as of this encounter
--- OUTSIDE RECORDS SUMMARY | 2025-08-02 08:09 | XMS_ITS | Encounter Summary ---
Author Organization [employer] Address [address] [facility] 7t [place] [address] Care Team Providers Care Cupola Charger Insulation Name Role Phone Name, Jon RUIZ Primary Care Provider [phone] Reason for Visit * Reason Onset Date Comments Durable Medical Equipment 07/30/2025 Encounter Details Date Type Department Care Team ([facility] st Contact Info) Description 07/30/2025 Telephone [facility] MEDICINE [address] [place], [place] [phone] Name, MD oJn [address] [place] [address] Durable Medical Equipment Social History Tobacco Use Types Packs/Day Years [...] encounter Miscellaneous Notes * Telephone Encounter - Jon Pérez MD - 08/01/2025 1:38 PM EST I think you can use my last note for the DMEs * Telephone Encounter - Jessica Green - 08/01/2025 1:33 PM EST If agree with request below, please provide an Addendum to support the need for DMEs. Thank you * Telephone Encounter - Ileana Puckett - 07/30/2025 11:36 AM EST Tc from pt requesting a DME order for a walker , shower chair and hand held shower head Contact pt at [phone] (cameroonian) documented in this encounter Plan of Treatment Upcoming Encounters Date Type Department Care Team (Late st Contact Info) Description 10/03/2025 11:15 AM EST Office Visit [facility] MEDICINE [address] [place] [phone] Name, MD Jon [address] [place] [address] 11/02/2025 9:00 AM EDT Telemedicine [address] [address] Mariama Vega RN documented as of this encounter Goals Goal Patient Goal Type Associated Problems Recent Progress Patient-Stated? Author Hemoglobin A1c < 7.5 Result Component 7.1( 11:26 AM EST) No Wendy Sage PharmD [...] Weekly blood pressure task No Esvin Carpenter ID Weekly blood pressure task Care Plan Weekly blood pressure task No Esvin Carpenter [place] Patient has chronic kidney disease Care Plan Patient has chronic kidney disease No CarpenterEsvin peters ID Patient has chronic kidney disease Care Plan Patient has chronic kidney disease No CarpenterEsvin peters [place] Weekly blood pressure task Care Plan Weekly blood pressure task No Mariama Vega RN Weekly blood pressure task Care Plan Weekly blood pressure task No Mariama Vgea RN Patient has chronic kidney disease Care Plan Patient has chronic kidney disease No Mariama Vega RN Patient has chronic kidney disease Care Plan Patient has chronic kidney disease No Mariama Vega RN Weekly blood pressure task Care Plan Weekly blood pressure task No Linda Del Valle Weekly blood pressure task Care Plan Weekly blood pressure task No Linda Del Valle Patient has chronic kidney disease Care Plan Patient has chronic kidney disease No Linda Del Valle Patient has chronic kidney disease Care Plan Patient has chronic kidney disease No Linda Del Valle Weekly blood pressure [...] Weekly blood pressure task No Ileana Hill Patient has chronic kidney disease Care Plan Patient has chronic kidney disease No Ileana Hill Patient has chronic kidney disease Care Plan Patient has chronic kidney disease No Ileana Hill documented as of this encounter Visit Diagnoses Not on filedocumented in this encounter Additional Health Concerns Active Problems Noted Date [...] 07/30/2025 Patient has chronic kidney disease 07/30/2025 Assessment Noted Time PHQ-9 Depression Total Score: 4 03/07/20 25 11:18 AM EDT documented as of this encounter Care Teams Cupola Charger Insulation Relationship Specialty Start Date End Date Name, MD Jon [address] [place] [address] PCP - General Family Medicine 12/15/21 documented as of this encounter
--- OUTSIDE RECORDS SUMMARY | 2025-08-02 08:09 | XMS_ITS | Encounter Summary ---
Author Organization [employer] [facility] Address 75 [facility] 7t [place] [address] Care Team Providers Care Associate Justice Name Role Phone Name, Jon RUIZ Primary Care Provider Wendy Sage PharmD Unavailable [phone] Reason for Visit * Reason Comments Med Refill Encounter Details Date Type Department Care Team ([facility] Contact Info) Description 03/02/2023 Refill [facility] MEDICINE [address] [place] [address] [phone] Name, MD Jon [address] [place] [address] Pain in right shoulder Social History Tobacco [...] Upcoming Encounters Date Type Department Care Team ([facility] Contact Info) Description 10/03/2025 11:15 AM EST Office Visit [facility] [address] [facility] [place] [address] Name, MD [facility] [place] [address] 11/02/2025 9:00 AM EDT Telemedicine [facility] [place] [address] Mariama Vega, ABDULKADIR documented as of this encounter Goals Goal Patient Goal Type Associated Problems Recent Progress Patient-Stated? Author Hemoglobin A1c < 7.5 Result Component 7.1( 11:26 AM EST) No eWndy Sage, PharmD Record your blood sugar as directed Result Component No Wendy Sage, PharmD Note: Alternating fasting & 2-hr postprandial. documented as of this encounter Visit Diagnoses Diagnosis Pain in right shoulder documented in this encounter Care Teams Associate Justice Relationship Specialty Start Date End Date Name, [place] [address] PCP - General Family Medicine 12/15/21 Wendy Sage, [place] [address] Pharmacist Internal Medicine 03/31/22 06/21/25 documented as of this encounter
--- OUTSIDE RECORDS SUMMARY | 2025-08-02 08:09 | XMS_ITS | Encounter Summary ---
Author Organization [facility], Address [address] [place] [address] Phone Care Team Providers Care Compliance Field Technician Name Role Phone Name, Jon RUIZ Primary Care Provider [phone] Encounter Details Date Type Department Care Team ([facility] [address] Contact Info) Description 10/13/2022 Documentation Only [facility] [address] [place] [address] Nicole Patterson PA [address] [place] [address] [place] [address] Social History Tobacco Use Types [...] Department Care Team (Late Contact Info) Description 07/02/2026 1:45 PM EST Office Visit [facility] [address] [place] [address] Kevyn Nevarez MD [address] [place] [address] [place] [address] documented as of this encounter Visit Diagnoses Not on filedocumented in this encounter Care Teams Compliance Field Technician Relationship Specialty Start Date End Date Name, MD Jon [address] [place] [address] PCP - General Internal Medicine 04/09/22 documented as of this encounter
--- OUTSIDE RECORDS SUMMARY | 2025-08-02 08:09 | XMS_ITS | Encounter Summary ---
Author Organization [facility], Address [address] [place] [address] Phone Care Team Providers Care Rougher For Cement Name Role Phone Name, Jon RUIZ Primary Care Provider [phone] Encounter Details Date Type Department Care Team ([facility] Contact Info) Description 05/10/2024 Documentation Only [facility] [address] [place] [address] Etelvina Mcdaniel [address] [place] [address] Social History Tobacco Use Types [...] Team ([facility] Contact Info) Description 07/02/2026 1:45 PM EST Office Visit [facility] [address] [place] [address] Kevyn Nevarez MD [address] [place] [address] [place] [address] documented as of this encounter Visit Diagnoses Not on filedocumented in this encounter Care Teams Rougher For Cement Relationship Specialty Start Date End Date Name, MD Jon [address] [place] [address] PCP - General Internal Medicine 04/09/22 documented as of this encounter
--- OUTSIDE RECORDS SUMMARY | 2025-08-02 08:09 | XMS_ITS | Encounter Summary ---
Author Organization [facility], Address [address] [place] [address] Phone Care Team Providers Care Coordinate Measuring Machine Operator Name Role Phone Name, Jno RUIZ Primary Care Provider [phone] Encounter Details Date Type Department Care Team ([facility] Contact Info) Description 11/04/2023 Documentation Only [facility] [address] [place] [address] Etelvina Mcdaniel [address] [place] [address] Social History Tobacco Use Types [...] [facility] Contact Info) Description 07/02/2026 1:45 PM EST Office Visit [facility] [address] [place] [address] Kevyn Nevarez MD [address] [place] [address] [place] [address] documented as of this encounter Visit Diagnoses Not on filedocumented in this encounter Care Teams Coordinate Measuring Machine Operator Relationship Specialty Start Date End Date Name, MD Jon [address] [place] [address] PCP - General Internal Medicine 04/09/22 documented as of this encounter
--- OUTSIDE RECORDS SUMMARY | 2025-08-02 08:09 | XMS_ITS | Encounter Summary ---
Author Organization [employer] Address [address] [facility] 7t [place] [address] Care Team Providers Care Mate Relief Name Role Phone Name, Jon RUIZ Primary Care Provider [phone] Encounter Details Date Type Department Care Team ([facility] st Contact Info) Description 08/01/2025 Telephone [facility] MEDICINE [address] [place], [place] [phone] Name, MD Jon [address] [place], [place] [phone] Social History Tobacco Use Types Packs/Day Years [...] encounter Miscellaneous Notes * Telephone Encounter - Iesha Jamison RN - 08/01/2025 2:52 PM EST PCP letter faxed to [facility] Pain management, confirmation received. documented in this encounter Plan of Treatment Upcoming Encounters Date Type Department Care Team (Late st Contact Info) Description 10/03/2025 11:15 AM EST Office Visit [facility] MED[facility]INE [address] [place] [address] Name, MD Jon [address] [place] [address] 11/02/2025 9:00 AM EDT Telemedicine [facility] [address] [place] [address] Mariama Vega RN documented as of this [...] Weekly blood pressure task No Esvin Carpenter [place] Weekly blood pressure task Care Plan Weekly blood pressure task No CarpenterEsvin peters [place] Patient has chronic kidney disease Care Plan Patient has chronic kidney disease No CarpenterEsvin peters [place] Patient has chronic kidney disease Care Plan Patient has chronic kidney disease No CarpenterEsvin peters [place] Weekly blood pressure task Care Plan Weekly [...] Care Plan Weekly blood pressure task No Eligio, Linda Weekly blood pressure task Care Plan Weekly blood pressure task No Eligio, Linda Patient has chronic kidney disease Care Plan Patient has chronic kidney disease No Eligio, Linda Patient has chronic kidney disease Care Plan Patient has chronic kidney disease No Eligio, Linda Weekly blood pressure task Care Plan Weekly [...] task Care Plan Weekly blood pressure task [place] Pérez MD Weekly blood pressure task Care Plan Weekly blood pressure task [place] Pérez MD Patient has chronic kidney disease Care Plan Patient has chronic kidney disease [place] Lake[place] Pérez MD Patient has chronic kidney disease Care Plan Patient has chronic kidney disease [place] Lake[place] Pérez MD Weekly blood pressure task Care Plan Weekly blood pressure task No Iesha Jamison RN Weekly blood pressure task Care Plan Weekly blood pressure task No Iesha Jamison RN Patient has chronic kidney disease Care Plan Patient has chronic kidney disease No Iesha Jamison RN Patient has chronic kidney disease Care Plan Patient has chronic kidney disease No Iesha Jamison RN documented as of this encounter Visit Diagnoses [...] 08/01/2025 Patient has chronic kidney disease 08/01/2025 Assessment Noted Time PHQ-9 Depression Total Score: 4 03/07/20 25 11:18 AM EDT documented as of this encounter Care Teams Mate Relief Relationship Specialty Start Date End Date Name, MD Jon [address] [place] [address] PCP - General Family Medicine 12/15/21 documented as of this encounter
--- OUTSIDE RECORDS SUMMARY | 2025-08-02 08:09 | XMS_ITS | Encounter Summary ---
Author Organization [facility], Address [address] [place] [address] Phone Care Team Providers Care Data Warehouse Architect Name Role Phone Name, Jon RUIZ Primary Care Provider [phone] Encounter Details Date Type Department Care Team ([facility] Contact Info) Description 05/10/2023 Documentation Only [facility] [address] [place] [address] Kevyn Nevarez MD [address] [place] [address] [place] [address] Social History Tobacco Use Types [...] [facility] [address] [place] [address] Kevyn Nevarez MD [address] [place] [address] [place] [address] documented as of this encounter Visit Diagnoses Not on filedocumented in this encounter Care Teams Data Warehouse Architect Relationship Specialty Start Date End Date Name, MD Jon [address] [place] [address] PCP - General Internal Medicine 04/09/22 documented as of this encounter
--- OUTSIDE RECORDS SUMMARY | 2025-08-02 08:09 | XMS_ITS | Encounter Summary ---
Author Organization [employer] Address [address] [facility] 7t [place] [address] Care Team Providers Care Groover And Striper Operator Name Role Phone Name, Jon RUIZ Primary Care Provider [phone] Wendy Sage PharmD Unavailable Reason for Visit * Reason Comments Med Refill Encounter Details Date Type Department Care Team (Late Contact Info) Description 02/09/2023 Refill [facility] MEDICINE [address] [place] [address] [phone] NameJon MD [address] [place] [address] Pain in right shoulder Social History Tobacco [...] Department Care Team (Late Contact Info) Description 10/03/2025 11:15 AM EST Office Visit [facility] MEDICINE [address] [place] [address] Name, MD Jon [address] [place] [address] 11/02/2025 9:00 AM EDT Telemedicine [facility] MEDICINE [address] [place] [address] Mariama Vega, RN documented as of this encounter Goals Goal Patient Goal Type Associated Problems Recent Progress Patient-Stated? Author Hemoglobin A1c < 7.5 Result Component 7.1(06/22/2025 11:26 AM EST) No Wendy Sage, PharmD documented as of this encounter Visit Diagnoses Diagnosis Pain in right shoulder documented in this encounter Care Teams Groover And Striper Operator Relationship Specialty Start Date End Date Name, MD Jon [address] [place] [address] PCP - General Family Medicine 12/15/21 Wendy Sage, PharmD [address] [place] [address] Pharmacist Internal Medicine 03/31/22 06/21/25 documented as of this encounter
--- OUTSIDE RECORDS SUMMARY | 2025-08-02 08:09 | XMS_ITS | Clinical Summary ---
Author Organization [facility], Address [address] [place] [address] [place] [address] Phone Care Team Providers Care Avionics Shop Supervisor Name Role Phone Name, Jon RUIZ Primary Care Provider [phone] Allergies Active Allergy Reactions Criticality Noted Date [...] Active Problems Problem Noted Date Diagnosed Date Chronic kidney disease, stage 2 (mild) 5 Type 2 diabetes mellitus without complication Stage 3a chronic kidney disease 09/15/2019 Overview (08/19/2020): Update for Diagnosis Load Essential hypertension 09/15/2019 Renal disorder due to type 2 diabetes mellitus 0 09/15/2019 Resolved Problems Problem Noted Date Diagnosed Date Resolved Date Diabetes mellitus 12/26/2020 07/14/2021 Hypertensive heart disease w [facility] congestive heart failure 09/15/2019 07/14/2021 Vitamin D deficiency 09/15/2019 021 Encounters Date Type Department Care Team Description 06/19/2025 2:30 PM EST Office Visit [facility], [address] [place] [address] Kevyn Nevarez MD Renal disorder due to type 2 diabetes mellitus <Unspecified DM Medication; Diabetic nephropathy> (HCC) (Primary Dx); Essential hypertension; Stage 3a chronic kidney disease (HCC) from Last 3 Months Immunizations Immunization Administration Dates Next Due Hepatitis B 09/03/2011,03/23/2011,02/20/2011 Influenza Split 06/13/2013,04/14/2012 Influenza Split High Dose Pr eservative Free IM 05/01/2019,05/03/2017 Influenza, Quadrivalent, Pre servative Free 07/15/2018,08/26/2016 Influenza, Unspecified 05/25/2023,2021,05/19/2021,05/24,05/11/2011 Moderna SARS-COV-2 12/25/2021, 1,10/25/2020,09/27 Pneumococcal Conjugate 13-Valent 12/13/2015 Pneumococcal Conjugate Pcv [...] Care Team (Late st Contact Info) Description 07/02/2026 1:45 PM EST Office Visit [facility], [address] [facility] [address] Kevyn Nevarez MD [address] [facility] [place] [address] Health Maintenance Due Date Last Done Comments Diabetes: Ophthalmology Exam 09/15/2019 Diabetes: Pedal Pulse Checked 09/15/2019 Diabetes: Sensory Foot Exam 09/15/2019 Diabetes: Visual Foot Exam 09/15/2019 Influenza Vaccine (#1) 2025 4, 05/25/2023, 06/01/2022, Additional history exists Diabetes: Hemoglobin A1C 04/25/2025 025, 09/25/2024, 04/25/2024, Additional history exists Hepatitis B Vaccine Aged [...] AM EST) Hemoglobin A1C 6.5(H) (4-6) % [place] [address] Comment: HEMOGLOBIN A1C(%) GLUCOSE CONTROL INDEX <6% EXCELLENT 6-7% VERY GOOD 7-8% GOOD 8-10% FAIR >10% POOR Hemoglobin (Hb) A1c testing is performed by [employer] Nanette-quant immunoassay. Any cause of shortened erythrocyte survival will reduce exposure of erythrocytes to glucose with a consequent decrease in Hb A1c (%). Testing performed or reported by ~[facility], ~a Service of [facility], ~[address] [place] [address]~ Cyndy Quiroga MD, Profile Saw Operator 09/12/2018 8:11 AM EST us Kevyn Nevarez MD LAB BLOOD ORDERABLES Final Resul t [id number] from Last 3 Months or Most Recently Relevant to Health Maintenance Insurance Medicaid [place] [employer] Dual SNP ([id number]) Care Teams Avionics Shop Supervisor Relationship Specialty Start Date End Date Name, MD Jon [address] [place] [address] PCP - General Internal Medicine 04/09/22
--- OUTSIDE RECORDS SUMMARY | 2025-08-02 08:09 | XMS_ITS | Encounter Summary ---
Author Organization [facility] Address [address] [place] [address] Phone Care Team Providers Care Marine Service Station Attendant Name Role Phone Name, Jon RUIZ Primary Care Provider [phone] Encounter Details Date Type Department Care Team (Late Contact Info) Description 04/19/2023 Orders Only [facility] [address] [facility] [place] [address] Nicole Patterson PA [address] [facility] [place] [address] Stage 3a chronic kidney disease [...] [facility] [address] [facility] [address] [address] [place] [address] Kevyn Nevarez MD [address] [facility] [place] [address] documented as of this encounter Visit Diagnoses Diagnosis Stage 3a chronic kidney disease (HCC) Essential hypertension Type 2 diabetes mellitus without complication (HCC) documented in this encounter Care Teams Marine Service Station Attendant Relationship Specialty Start Date End Date Name, MD Jon [address] [place] [address] PCP - General Internal Medicine 04/09/22 documented as of this encounter
--- OUTSIDE RECORDS SUMMARY | 2025-08-02 08:09 | XMS_ITS | Encounter Summary ---
Author Organization [employer] Address [address] [facility] 7t [place] [address] Care Team Providers Care Crop Scout Name Role Phone Name, Jon RUIZ Primary Care Provider [phone] Wendy Sage PharmD Unavailable [phone] Reason for Visit * Reason Comments Med Refill Encounter Details Date Type Department Care Team ([facility] st Contact Info) Description 04/25/2024 Refill [facility] [address] [place], [place] [phone] Name, MD Jon [address] [place] [address] Social History Tobacco Use Types Packs/Day Years [...] Description 10/03/2025 11:15 AM EST Office Visit [address] [address] Name, MD Jon [address] [place] [address] 11/02/2025 9:00 AM EDT Telemedicine [address] [address] Mariama Vega, ABDULKADIR documented as of this encounter Goals Goal Patient Goal Type Associated Problems Recent Progress Patient-Stated? Author Hemoglobin A1c < 7.5 Result Component 7.1( 11:26 AM EST) No Puia, Wendy, PharmD Record your blood sugar as directed Result Component No Puia, Wendy, PharmD Note: Alternating fasting & 2-hr postprandial. documented as of this encounter Visit Diagnoses Not on filedocumented in this encounter Additional Health Concerns Assessment Noted Time PHQ-9 Depression Total Score: 0 12/30/19 24 9:13 AM EDT documented as of this encounter Care Teams Crop Scout Relationship Specialty Start Date End Date NameJon MD [address] [place] [address] PCP - General Family Medicine 12/15/21 Wendy Sage PharmD [address] [place] [address] Pharmacist Internal Medicine 03/31/22 06/21/25 documented as of this encounter
== END 2025-08-02 08:05 | disposition home or self-care (01) ==
LOC: HO.HOSX 08:04
PROVIDERS: Visit Provider Orthopaedic Surgery
DX: T84.038A Mechanical loosening of other internal prosthetic joint, initial encounter (principal); Z96.641 Presence of right artificial hip joint
CPT/HCPCS: 72170

== ENCOUNTER 2025-08-02 09:25 | Outpatient (AMB) | payer OTHER, SELFPAY ==
--- NOTE | 2025-08-02 09:29 | MHC.OFFVIS ---
Vital Signs 08/02/25 09:52 Height 5 ft 5 in Weight 184 lb BMI 30.6 Intake Visit Reasons: OV - Right Hip Pain - Hx of Right CLAUDIA Intake Note: Jon is an 79 year old male who presents today for a follow up of his Right Hip, Hx of Right CLAUDIA about 19 years ago. He was last seen in 2023 where we discussed possible loosening of hardware. Patient reports that he has had pain in the right hip for about 5 years now. 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 Allergies ibuprofen (IBUPROFEN) Allergy (Severe, Verified 05/24/25 11:33) SWELLING Ibuprofen Allergy (Unknown, Uncoded 03/09/24 10:11) unknown HPI HPI OV - Right Hip Pain - Hx of Right CLAUDIA: Details: Jon is an 79 year old male who presents today for a follow up of his Right Hip, Hx of Right CLAUDIA about 19 years ago. He was last seen in 2023 where we discussed possible loosening of hardware. Patient reports that he has had pain in the right hip for about 5 years now. He uses a cane to ambulate. He walks with a limp. He has pain all the time. He denies fevers and chills. 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 [facility]LY [facility] Medical History Diabetes Hypertension Surgical History History of right hip replacement History of left knee surgery Family History Mother No problems noted. Father No problems noted. Social History Alcohol intake: current Alcohol intake frequency: holidays/special occasions only Patient Tobacco Use Status: Former Tobacco user Years Smoked: 10 +/- Current occupational status: retired Physical Exam Exam Exam: No acute distress Positive Trendelenburg gait but gait antalgia. Pain with internal rotation of the right hip. Firing EHL/tib ant/gastrocs 2+ dorsalis pedis pulse Vital Signs: BMI result Body Mass Index 30.6 Results Reviewed Results Reviewed: I personally reviewed relevant radiographs. 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 Assessment & Plan Assessment & Plan (1) Aseptic loosening of prosthetic hip: Code(s): T84.038A - Mechanical loosening of other internal prosthetic joint, initial encounter; Z96.649 - Presence of unspecified artificial hip joint Category: Medical Plan: This is an 79-year-old [place]ian-speaking gentleman who is 30 years status post right hip arthroplasty performed here by Dr. Izaguirre. He has had pain for years now and ambulates with a cane and with a limp and feels quality of his life is diminished. He would like to consider surgery. I reviewed his x-rays with him and, given the complexity of this surgery and the potential for pelvic discontinuity, I recommend a referral to [facility]. I will speak with his daughter and with Dr. Cevallos at [facility] to try to help coordinate. Orders: Orders XR pelvis 1-2V Today M25.559 - Pain in unspecified hip Coding Level of Care Code Est Pt Level 3 (48172) Diagnoses Aseptic loosening of prosthetic hip T84.038A; Z96.649
[2025-08-02 09:52] VITALS: BMI 30.6
== END 2025-08-02 10:55 | disposition home or self-care (01) ==
LOC: HO.HOS 09:25
PROVIDERS: PCP Internal Medicine Geriatric Medicine; Visit Provider Orthopaedic Surgery
DX: M25.551 Pain in right hip (principal); T84.030A Mechanical loosening of internal right hip prosthetic joint, initial encounter; Z96.641 Presence of right artificial hip joint
CPT/HCPCS: 99213

== ENCOUNTER → 2025-08-02 09:46 | Outpatient (BNV) | payer OTHER, SELFPAY | PROVIDERS: Visit Provider Radiology Diagnostic Radiology | DX: M25.551 Pain in right hip (principal) | CPT/HCPCS: 72170 ==